=== PATIENT | female | born 1980 | race Caucasian/White ===

== ENCOUNTER → 2020-10-04 08:08 | Outpatient (BNVA) | payer MEDICAID, SELFPAY | PROVIDERS: Visit Provider Advanced Practice Midwife | DX: O09.521 Supervision of elderly multigravida, first trimester (principal); O16.1 Unspecified maternal hypertension, first trimester; Z79.899 Other long term (current) drug therapy; Z91.89 Other specified personal risk factors, not elsewhere classified | CPT/HCPCS: 81025; 99212 ==

== ENCOUNTER 2020-11-03 09:54 | Outpatient (REF) | payer MEDICAID, SELFPAY | END 2020-11-03 09:55 | disposition home or self-care (01) | LOC: HO.LAB 09:54 | PROVIDERS: PCP Student in an Organized Health Care Education/Training Program; Visit Provider Internal Medicine | DX: Z20.828 Contact with and (suspected) exposure to other viral communicable diseases (principal) | CPT/HCPCS: 36415; C9803; U0003 ==

== ENCOUNTER → 2021-10-31 09:47 | Outpatient (BNVA) | payer MEDICAID, SELFPAY | PROVIDERS: Visit Provider Physician Assistant | DX: S50.02XA Contusion of left elbow, initial encounter (principal) | CPT/HCPCS: 99202 ==

== ENCOUNTER 2022-08-13 10:34 | Outpatient (REF) | payer MEDICAID, SELFPAY ==
[2022-08-13 12:09] LABS: Alanine Aminotransferase 8 U/L (0-31); Albumin Level 3.7 g/dL (3.5-5.0); Alkaline Phosphatase 108 U/L (39-117); Anion Gap 20 (12-20); Aspartate Amino Transferase 11 U/L (5-31); Bilirubin Total 0.2 mg/dL (0.0-1.0); Blood Urea Nitrogen 16 mg/dL (9-16); Calcium 9.1 mg/dL (8.4-10.2); Carbon Dioxide 19 mmol/L (22-29); Chloride 103 mmol/L (96-108); Estimated Glomerular Filt Rate > 60; Glucose Random 218 mg/dL (60-115); Iron 96 mcg/dL (30-160); Percent Iron Saturation 19 % (15-50); Potassium 4.2 mmol/L (3.3-5.1); Sodium 138 mmol/L (135-145); Total Iron Binding Capacity 500 mcg/dL (228-428); Total Protein 6.9 g/dL (6.5-8.0); Unsaturated Iron Binding 404 ug/dL
[2022-08-13 12:28] LABS: Ferritin 20 ng/mL (10-250); TSH reflex Free T4 1.83 uIU/mL (0.32-4.0); Vitamin D 25-OH Total 10.2 ng/mL (>30)
[2022-08-13 12:49] LABS: Vitamin B12 176 pg/mL (200-900)
[2022-08-15 11:47] LABS: Transglutaminase IgA <1.0 U/mL
[2022-08-15 12:36] LABS: Immunoglobulin A 170 mg/dL (47-310)
[2022-08-17 13:01] LABS: Vitamin A 91 mcg/dL (38-98)
== END 2022-08-13 10:35 | disposition home or self-care (01) ==
LOC: HO.LAB 10:34
PROVIDERS: PCP Student in an Organized Health Care Education/Training Program; Visit Provider Internal Medicine
DX: R10.30 Lower abdominal pain, unspecified (principal); K52.9 Noninfective gastroenteritis and colitis, unspecified; K62.5 Hemorrhage of anus and rectum
CPT/HCPCS: 36415; 80053; 82306; 82607; 82728; 82746; 82784; 83540; 84443; 84590; 86364; 99202

== ENCOUNTER 2022-09-03 13:14 | Outpatient (REF) | payer MEDICAID, SELFPAY ==
[2022-09-03 15:02] LABS: Adenovirus F 40/41 Not Detected (Not Detect.); Astrovirus Not Detected (Not Detect.); Campylobacter Not Detected (Not Detect.); Cryptosporidium Not Detected (Not Detect.); Cyclospora cayetanensis Not Detected (Not Detect.); E. coli EAEC Not Detected (Not Detect.); E. coli EPEC Not Detected (Not Detect.); E. coli ETEC Not Detected (Not Detect.); E. coli STEC Not Detected (Not Detect.); Entamoeba histolytica Not Detected (Not Detect.); Giardia lamblia Not Detected (Not Detect.); Norovirus GI/GII Not Detected (Not Detect.); Plesiomonas shigelloides Not Detected (Not Detect.); Rotavirus A Not Detected (Not Detect.); Salmonella Not Detected (Not Detect.); Sapovirus Not Detected (Not Detect.); Shigella sp./EIEC Not Detected (Not Detect.); Vibrio Not Detected (Not Detect.); Vibrio Cholerae Not Detected (Not Detect.); Yersinia enterocolitica Not Detected (Not Detect.)
[2022-09-10 18:11] LABS: Calprotectin, Fecal 19 mcg/g
== END 2022-09-03 13:15 | disposition home or self-care (01) ==
LOC: HO.LNP 13:14
PROVIDERS: Visit Provider Internal Medicine
DX: K52.9 Noninfective gastroenteritis and colitis, unspecified (principal)
CPT/HCPCS: 83993; 87507

== ENCOUNTER → 2022-09-10 09:57 | Outpatient (BNVA) | payer MEDICAID, SELFPAY | PROVIDERS: PCP Student in an Organized Health Care Education/Training Program; Visit Provider Internal Medicine | DX: K62.5 Hemorrhage of anus and rectum (principal); K52.9 Noninfective gastroenteritis and colitis, unspecified; M62.89 Other specified disorders of muscle; E66.01 Morbid (severe) obesity due to excess calories; Z91.89 Other specified personal risk factors, not elsewhere classified; Z68.41 Body mass index [BMI] 40.0-44.9, adult | CPT/HCPCS: 99212 ==

== ENCOUNTER 2022-10-15 09:15 | Outpatient (REF) | payer MEDICAID, SELFPAY ==
--- NOTE | ~2022-10-15 | US_ITS ---
EXAMINATION: US ABDOMEN COMPLETE CLINICAL INFORMATION: Check for fatty liver. COMPARISON: Renal ultrasound 02/22/2012. TECHNIQUE: Real-time imaging of the abdominal viscera. FINDINGS: PANCREAS: Normal. ABDOMINAL AORTA: The proximal, mid, and distal segments are normal in caliber. INFERIOR VENA CAVA: Visualized portions are normal. LIVER: The liver is enlarged measuring 22.7 cm. There is diffuse increased liver echogenicity. There is a focal isoechoic lesion with hyperechoic capsule in left hepatic lobe measuring 1.9 x 1.8 x 2.4 cm. A similar appearing lesion is seen in the right hepatic lobe measuring 1.7 x 1.8 x 1.3 cm. These are suspicious for hemangiomas. There is no intrahepatic biliary duct dilatation seen. GALLBLADDER: There is a non mobile echogenic lesion along the inner gallbladder wall measuring 0.6 x 0.70 x 0.55 cm likely a small polyp. No echogenic stones or wall thickening seen. However, there is echogenic sludge noted. There is no tenderness in right upper quadrant. COMMON BILE DUCT: Normal in caliber measuring 0.5 cm in diameter. RIGHT KIDNEY: There is an anechoic cyst in the upper pole with septation measuring 2.1 x 1.5 x 2.1 cm. No additional lesions seen. No hydronephrosis or renal calculi. The kidney measures 12.2 cm in maximum dimension. LEFT KIDNEY: Normal. No hydronephrosis. No renal calculi or focal parenchymal lesions. The kidney measures 12.3 cm in maximum dimension. SPLEEN: Normal. The spleen measures 12.2 cm in maximum dimension. FREE FLUID: None. US/US abdomen complete IMPRESSION: Enlarged liver with diffuse hepatic steatosis. Two isoechoic lesions with a hypoechoic capsules in right and left hepatic lobe likely hemangiomas. Complex cyst upper pole right kidney. Echogenic sludge and a solitary polyp in the gallbladder.
== END 2022-10-15 09:16 | disposition home or self-care (01) ==
LOC: HO.HMGCX 09:15
PROVIDERS: PCP Student in an Organized Health Care Education/Training Program; Visit Provider Internal Medicine
DX: K76.0 Fatty (change of) liver, not elsewhere classified (principal)
CPT/HCPCS: 76700

== ENCOUNTER 2022-11-01 09:05 | Day surgery (SDC) | payer MEDICAID, SELFPAY ==
[2022-10-26 13:59] VITALS: BMI 43.9
--- NOTE | 2022-10-31 13:26 | P.CONAN_ITS ---
Documented by User: Dedra Galicia NP 10/31/22 13:31 HPI - Anesthesia Eval Consult details Narrative: 42yo F for Colonoscopy PMFSH Active Problems Active Problems: All Active Problems (Updated 10/26/22 @ 13:17 by Klaudia Zazueta MD) High risk for diabetes mellitus (Acute) Irregular menses (Acute) Early stage of (Acute) Advanced maternal age, antepartum (Acute) Contusion of elbow, left (Acute) Lower abdominal pain (Acute) Chronic diarrhea (Acute) Rectal bleeding (Acute) Pelvic floor dysfunction in female (Acute) Obesity, Class III, BMI 40-49.9 (morbid obesity) (Acute) Fatty liver (Acute) Abnormal finding on imaging (Acute) Abnormal glucose complicating (Acute) Past Medical History Medical History (Updated 10/26/22 @ 13:17 by Klaudia Zazueta MD) Abnormal glucose complicating Asthma Bipolar depression GERD (gastroesophageal reflux disease) History of anxiety History of depression Hypertension Family History Family History Father Diabetes mellitus Asthma Mother Hypertension Asthma History of depression Surgical History Surgical History (Updated 10/26/22 @ 13:55 by Josy New RN) Hx of tonsillectomy Hx of tooth extraction Social History Social History 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 primary home 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 care social worker to a 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 other at home: Yes (children, will be there also for childcare) Do you presently have visiting nurse or other home services: No Alcohol intake: current Alcohol intake frequency: holidays/special occasions only Patient Tobacco Use Status: Former Tobacco user Quit Date: 2017 Tobacco use type: Cigarette Sexual orientation: Straight/Heterosexual Meds Allergies Allergy/AdvReac Type Severity Reaction Status Date / Time No Known Allergies Allergy Verified 10/26/22 13:56 [No Known Allergies*] Home Medications Medication Instructions Recorded Confirmed Last Taken Type albuterol sulfate 90 mcg/actuation 1 inh inhalation QID PRN Shortness 10/04/20 10/26/22 Unknown History aerosol inhaler Of Breath Or Wheezing omeprazole 40 mg capsule,delayed 40 mg PO DAILY 10/04/20 10/26/22 Unknown History release amlodipine 10 mg tablet 10 mg PO DAILY 08/13/22 10/26/22 Unknown History blood sugar diagnostic (FreeStyle #10 ea 08/13/22 Unknown History Lite Strips) dicyclomine 10 mg capsule 10 mg PO DAILY 08/13/22 10/26/22 10/12/22 History fluticasone propionate 50 2 spray intranasal DAILY PRN 08/13/22 10/26/22 Unknown History mcg/actuation nasal Allergy Symptoms spray,suspension hydrochlorothiazide 25 mg tablet 25 mg PO QAM 08/13/22 10/26/22 Unknown History hydroxyzine HCl 10 mg tablet 15 mg PO DAILY 08/13/22 10/26/22 Unknown History lancets 33 gauge (TRUEplus Lancets) #100 ea 08/13/22 Unknown History loratadine 10 mg tablet 10 mg PO DAILY PRN Allergic 08/13/22 10/26/22 Unknown History Symptoms metformin 500 mg tablet 500 mg PO QAM 08/13/22 10/26/22 Unknown History hydrocortisone 2.5 % topical cream topical TID-QID 09/10/22 09/10/22 Unknown History with perineal applicator (Proctosol HC) norgestimate-ethinyl estradiol 1 tab PO DAILY 10/26/22 10/26/22 Unknown History 0.18 mg/0.215mg/0.25mg-35 mcg(28)tablet (Tri-Sprintec (28)) Exam Exam Date and Time: October 31, 2022 1326 Height,Weight and Vital Signs: Height 5 ft 2 in Weight 108.862 kg Pertinent Lab Results Pertinent Lab Results: Laboratory Tests 08/13/22 10:59 Sodium 138 Potassium 4.2 Chloride 103 Carbon Dioxide 19 L BUN 16 Creatinine 0.77 Assessment and Plan Assessment Anesthesia Assessment: Chart Reviewed Documented by User: Molly Suazo MD 11/01/22 11:47 [facility] Past Medical History Medical History (Updated 10/26/22 @ 13:17 by Klaudia Zazueta MD) Abnormal glucose complicating Asthma Bipolar depression GERD (gastroesophageal reflux disease) History of anxiety History of depression Hypertension Family History Family History Father Diabetes mellitus Asthma Mother Hypertension Asthma History of depression Family history of problems with anesthesia: No Surgical History Surgical History (Updated 10/26/22 @ 13:55 by Josy New RN) Hx of tonsillectomy Hx of tooth extraction History of Problems with Anesthesia: No Social History Social History Are you a primary home health care social worker to a significant other at home: Yes (children, will be there also for childcare) Do you presently have visiting nurse or other home services: No Alcohol intake: current Alcohol intake frequency: holidays/special occasions only Patient Tobacco Use Status: Former Tobacco user Quit Date: 2017 Tobacco use type: Cigarette Sexual orientation: Straight/Heterosexual Meds Allergies Allergy/AdvReac Type Severity Reaction Status Date / Time No Known Allergies Allergy Verified 10/26/22 13:56 [No Known Allergies*] Home Medications Medication Instructions Recorded Confirmed Last Taken Type albuterol sulfate 90 mcg/actuation 1 inh inhalation QID PRN Shortness 10/04/20 10/26/22 Unknown History aerosol inhaler Of Breath Or Wheezing omeprazole 40 mg capsule,delayed 40 mg PO DAILY 10/04/20 10/26/22 Unknown History release amlodipine 10 mg tablet 10 mg PO DAILY 08/13/22 10/26/22 Unknown History blood sugar diagnostic (FreeStyle #10 ea 08/13/22 Unknown History Lite Strips) dicyclomine 10 mg capsule 10 mg PO DAILY 08/13/22 10/26/22 10/12/22 History fluticasone propionate 50 2 spray intranasal DAILY PRN 08/13/22 10/26/22 Unknown History mcg/actuation nasal Allergy Symptoms spray,suspension hydrochlorothiazide 25 mg tablet 25 mg PO QAM 08/13/22 10/26/22 Unknown History hydroxyzine HCl 10 mg tablet 15 mg PO DAILY 08/13/22 10/26/22 Unknown History lancets 33 gauge (TRUEplus Lancets) #100 ea 08/13/22 Unknown History loratadine 10 mg tablet 10 mg PO DAILY PRN Allergic 08/13/22 10/26/22 Unknown History Symptoms metformin 500 mg tablet 500 mg PO QAM 08/13/22 10/26/22 Unknown History hydrocortisone 2.5 % topical cream topical TID-QID 09/10/22 09/10/22 Unknown History with perineal applicator (Proctosol HC) norgestimate-ethinyl estradiol 1 tab PO DAILY 10/26/22 10/26/22 Unknown History 0.18 mg/0.215mg/0.25mg-35 mcg(28)tablet (Tri-Sprintec (28)) Exam Airway Mallampati Class: II TM Dist: >3cm Neck ROM: Full Denture: Upper Loose/Missing/Broken Teeth: Yes Heart: rr Lungs: cta Assessment and Plan Final Anesthetic Review Family History of Problems with Anesthesia: No History of Problems with Anesthesia: No NPO: Yes ASA Class: III Final Preanesthetic Review: No Changes in Pt Med Stat, Meds/Allgs Chart Reviewed, Consent Obtained/Reviewed and Anes Risks/Benef Reviewed Patient Risk: Low Procedure Risk: Low Anesthetic Plan Anesthetic Plan: MAC: Disposition: Standard PACU
[2022-11-01 09:26] VITALS: BMI 43.9
[2022-11-01 09:27] LABS: UPreg QC Valid YES; Urine Pregnancy NEGATIVE (NEGATIVE)
[2022-11-01 09:29] VITALS: BP 133/56; PULSE 76; RESP 18; TEMP 36.3; O2SAT 96
--- NOTE | 2022-11-01 09:33 | MHC.SHP ---
Pre-Procedural Eval Section A Date of Service: 11/01/22 Section B Chief Complaint: rectal bleeding,lower abdminal pain,diarrhea Relevant Family History (Specify if Yes): No Present Medications: see Short Stay Collaborative assessment Medical History: Significant History (Obesity, pelvic floor dysfunction, prediabetes ) Allergies: Allergies Allergy/AdvReac Type Severity Reaction Status Date / Time No Known Allergies Allergy Verified 10/26/22 13:56 [No Known Allergies*] Review of Systems Review of Systems Comment: Ten point ROS negative except as above Exam Exam Comment: Gen appear: No acute distress, well nourished HEENT: no icterus Chest: No overt resp distress Abd: soft, nontender, nondistended Psych: Stable affect, answering questions appropriately Neuro: A/Ox3 noted to move all extremities spontaneously Ext: no peripheral edema Plan Diagnosis/Plan: Unchanged I have reviewed the history and physical and performed a pertinent physical examination on my patient. No changes have occurred unless specified. Time Spent With Patient Time: Total time managing care of this patient today ____ minutes.
[2022-11-01] MEDS: Lactated Ringers 1,000 ML 100 ML IVCONT (09:49)
[2022-11-01 10:02] LABS: Glucose, Whole Blood 146 mg/dL (60-115)
--- NOTE | 2022-11-01 10:18 | P.CONAN_ITS ---
[facility] Active Problems Active Problems: All Active Problems (Updated 10/26/22 @ 13:17 by Klaudia Zazueta MD) High risk for diabetes mellitus (Acute) Irregular menses (Acute) Early stage of (Acute) Advanced maternal age, antepartum (Acute) Contusion of elbow, left (Acute) Lower abdominal pain (Acute) Chronic diarrhea (Acute) Rectal bleeding (Acute) Pelvic floor dysfunction in female (Acute) Obesity, Class III, BMI 40-49.9 (morbid obesity) (Acute) Fatty liver (Acute) Abnormal finding on imaging (Acute) Abnormal glucose complicating (Acute) Past Medical History Medical History (Updated 10/26/22 @ 13:17 by Klaudia Zazueta MD) Abnormal glucose complicating Asthma Bipolar depression GERD (gastroesophageal reflux disease) History of anxiety History of depression Hypertension Family History Family History Father Diabetes mellitus Asthma Mother Hypertension Asthma History of depression Family history of problems with anesthesia: No Surgical History Surgical History (Updated 10/26/22 @ 13:55 by Josy New RN) Hx of tonsillectomy Hx of tooth extraction History of Problems with Anesthesia: No Social History Social History 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 If so, by whom?: No Are you DNR?: No Advance Directives: No Advance Directives Information Provided: Yes Advance Directives on File: No Recently lost weight without trying: No Patient : No FDLMP: 10/17/2022 : No Poor oral hygiene: No Sexual orientation: Straight/Heterosexual Meds Allergies Allergy/AdvReac Type Severity Reaction Status Date / Time No Known Allergies Allergy Verified 10/26/22 13:56 [No Known Allergies*] Active Medications: Current Medications Albuterol Sulfate (Albuterol Sulfate (0.083%) 2.5 Mg/3 Ml Vial.Neb) 2.5 mg INHALE ONCE PRN PRN Reason: Shortness of Breath/Wheezing Lactated Ringer's (Lr) 1,000 mls @ 100 mls/hr IVCONT .Q10H JANUSZ Last Admin: 11/01/22 09:49 Dose: 100 mls/hr Home Medications Medication Instructions Recorded Confirmed Last Taken Type albuterol sulfate 90 mcg/actuation 1 inh inhalation QID PRN Shortness 10/04/20 10/26/22 Unknown History aerosol inhaler Of Breath Or Wheezing omeprazole 40 mg capsule,delayed 40 mg PO DAILY 10/04/20 10/26/22 Unknown History release amlodipine 10 mg tablet 10 mg PO DAILY 08/13/22 10/26/22 Unknown History blood sugar diagnostic (FreeStyle #10 ea 08/13/22 Unknown History Lite Strips) dicyclomine 10 mg capsule 10 mg PO DAILY 08/13/22 10/26/22 10/12/22 History fluticasone propionate 50 2 spray intranasal DAILY PRN 08/13/22 10/26/22 Unknown History mcg/actuation nasal Allergy Symptoms spray,suspension hydrochlorothiazide 25 mg tablet 25 mg PO QAM 08/13/22 10/26/22 Unknown History hydroxyzine HCl 10 mg tablet 15 mg PO DAILY 08/13/22 10/26/22 Unknown History lancets 33 gauge (TRUEplus Lancets) #100 ea 08/13/22 Unknown History loratadine 10 mg tablet 10 mg PO DAILY PRN Allergic 08/13/22 10/26/22 Unknown History Symptoms metformin 500 mg tablet 500 mg PO QAM 08/13/22 10/26/22 Unknown History hydrocortisone 2.5 % topical cream topical TID-QID 09/10/22 09/10/22 Unknown History with perineal applicator (Proctosol HC) norgestimate-ethinyl estradiol 1 tab PO DAILY 10/26/22 10/26/22 Unknown History 0.18 mg/0.215mg/0.25mg-35 mcg(28)tablet (Tri-Sprintec (28)) Exam Exam Date and Time: November 01, 2022 1018 Height,Weight and Vital Signs: Height 5 ft 2 in Weight 108.862 kg Last Vital Signs Temp 97.4 F 11/01/22 09:29 Pulse 76 11/01/22 09:29 Resp 18 11/01/22 09:29 BP 133/56 L 11/01/22 09:29 Pulse Ox 96 11/01/22 09:29 O2 Del Method 11/01/22 09:29 Pertinent Lab Results Pertinent Lab Results: Laboratory Tests 11/01/22 11/01/22 09:15 09:32 POC Glucose 146 H Urine Test NEGATIVE Airway Mallampati Class: II TM Dist: >3cm Loose/Missing/Broken Teeth: Yes (4) Heart: rr Lungs: cta Assessment and Plan Assessment Anesthesia Assessment: Anesthesia Plan Discussed and Chart Reviewed Final Anesthetic Review Family History of Problems with Anesthesia: No History of Problems with Anesthesia: No NPO: No ASA Class: I and III Final Preanesthetic Review: No Changes in Pt Med Stat, Meds/Allgs Chart Reviewed, Consent Obtained/Reviewed and Anes Risks/Benef Reviewed Patient Risk: Intermediate Procedure Risk: Low Anesthetic Plan Anesthetic Plan: MAC: Disposition: Standard PACU
--- NOTE | 2022-11-01 10:35 | P.OP_ITS ---
Operative Note Operative Note Date of Service: 11/01/22 Narrative: Procedure: Colonoscopy Indication: Lower GI bleeding, diarrhea Endoscopist: Klaudia Zazueta MD Anesthesia Provider: Dr Molly Suazo Anesthesia type: MAC Instrument: Olympus [id number]-H190L Consent: Indication, risks vs benefits, and alternatives were discussed with the patient who gave written informed consent to proceed. EKG, pulse, pulse oximetry and blood pressure were monitored throughout the procedure. Please see anesthesia flowsheet. Procedure: The patient was brought to the procedure room and placed in the left lateral decubitus position. IV medications were administered by the anesthesia provider in attendance. A digital rectal exam was performed which was abnormal due to finding of hemorrhoids. The colonoscope was then inserted through the anus and advanced through the colon to the cecum at 75 cm,and terminal ileum. Mucosa was carefully examined under high definition white light as the instrument was slowly withdrawn in a retrograde panoramic fashion. Retroflexion was performed in rectum. The procedure was not difficult. There were no immediate obvious complications. The quality of the prep was BBPS: 2+2+2 = adequate Withdrawal time 10 minutes. Limitations: No limitations. Findings: Mucosa: Normal to cecum and terminal ileum. Random cold forceps biopsies were taken from right and left side of the colon to r/o microscopic colitis. Protruding lesions: * 1 sessile polyp of size 2 mm in cecum. Cold forceps polypectomy was performed. The polyp was completely removed and retrieved. * Medium external and internal hemorrhoids without stigmata of recent bleeding. Excavated lesions: * Small and medium diverticulosis of left sided colon. Impression: 1. Normal colon and terminal ileum mucosa 2. Total of 1 polyp removed from cecum. 3. External and internal hemorrhoids 4. Left sided diverticulitis Recommendations: - Follow path results. - Repeat colonoscopy in 7-10 years if polyp is adenoma - Rectal bleeding likely from hemorrhoids.
[2022-11-01 10:37] VITALS: BP 122/66; PULSE 76; RESP 16; TEMP 36.1; O2SAT 98
[2022-11-01 10:51] VITALS: BP 132/88; PULSE 72; RESP 16; TEMP 36.2; O2SAT 100
== END 2022-11-01 11:40 | disposition home or self-care (01) ==
PROVIDERS: Nurse Practitioner; PCP Student in an Organized Health Care Education/Training Program; Visit Provider Internal Medicine
PROC: 0DJD8ZZ Inspection of Lower Intestinal Tract, Via Natural or Artificial Opening Endoscopic (ICD-10-PCS; CPT 45378; principal; 2022-11-01 10:20)
DX: K62.5 Hemorrhage of anus and rectum (principal); K51.40 Inflammatory polyps of colon without complications; K57.30 Diverticulosis of large intestine without perforation or abscess without bleeding; K64.8 Other hemorrhoids; K64.4 Residual hemorrhoidal skin tags; K52.9 Noninfective gastroenteritis and colitis, unspecified; R10.30 Lower abdominal pain, unspecified; I10 Essential (primary) hypertension; K21.9 Gastro-esophageal reflux disease without esophagitis; M62.89 Other specified disorders of muscle; E66.01 Morbid (severe) obesity due to excess calories; Z68.41 Body mass index [BMI] 40.0-44.9, adult; J45.909 Unspecified asthma, uncomplicated; E11.9 Type 2 diabetes mellitus without complications; Z79.84 Long term (current) use of oral hypoglycemic drugs; Z79.51 Long term (current) use of inhaled steroids; Z79.899 Other long term (current) drug therapy; Z87.891 Personal history of nicotine dependence
CPT/HCPCS: 45380; 81025; 82947; 88305

== ENCOUNTER 2022-11-08 13:32 | Outpatient (REF) | payer MEDICAID, SELFPAY ==
--- NOTE | ~2022-11-08 | MR_ITS ---
EXAMINATION: MRI ABDOMEN WITH AND WITHOUT CONTRAST CLINICAL INFORMATION: ENLARGED LIVER W/DIFFUSE HEPATIC STEATOSIS COMPARISON: 10/15/2022 ultrasound TECHNIQUE: Multiple routine MRI sequences through the abdomen were obtained on a high-field 1.5Tesla MRI. Pre-and postcontrast images with 10 mL of Gadavist intravenous contrast were obtained. This included a dynamic contrast-enhanced technique. FINDINGS: Lung bases: The visualized lung bases are unremarkable. Liver: There is diffuse signal loss and out of phase imaging consistent with diffuse infiltration of the liver. Mild regions of focal fatty sparing are seen.. In the anterior aspect of segment 4 the liver there is a very subtle 1.5 cm arterial phase enhancing lesion with a T2 bright central scar. This is not well seen on the precontrast images. Statistically a small region of focal nodular hyperplasia would be favored. In the lateral right lobe the liver in segment 7 there is an additional subtle area of enhancement is very slightly T2 bright and again has a area of likely central enhancing scar. An additional subtle region of focal nodular hyperplasia would be suspected. Gallbladder: Gallbladder is unremarkable. No suspicious gallstones or filling defects. No gallbladder wall thickening or pericholecystic inflammatory changes. Pancreas: Pancreas is homogeneous in signal. No pancreatic ductal dilatation or obstruction. No peripancreatic inflammatory changes or fluid. Spleen: Unremarkable Adrenals: Unremarkable Kidneys: Kidneys are normal in size, shape, and signal. Right sided small parapelvic cysts incidentally noted No suspicious renal mass lesion seen. No hydronephrosis or perinephric edema. Other: No bulky adenopathy MR/MR abdomen wo/w con IMPRESSION: Diffuse fatty infiltration of the liver with mild regions of focal fatty sparing. There are 2 very subtle arterial phase enhancing lesions in the liver as described above. Statistically these likely represent small regions of focal nodular hyperplasia. In a patient of this age, follow-up MRI in one year would be recommended to assure stability of these findings. Ideally a follow-up study could be performed utilizing Eovist hepatocyte phase specific MR contrast to further define etiology of the probable focal nodular hyperplasia
== END 2022-11-08 13:33 | disposition home or self-care (01) ==
LOC: HO.MRI 13:32
PROVIDERS: PCP Student in an Organized Health Care Education/Training Program; Visit Provider Internal Medicine
DX: R93.89 Abnormal findings on diagnostic imaging of other specified body structures (principal)
CPT/HCPCS: 74183; A9585

== ENCOUNTER → 2022-12-12 12:43 | Outpatient (BNVA) | payer MEDICAID, SELFPAY | PROVIDERS: PCP Student in an Organized Health Care Education/Training Program; Visit Provider Internal Medicine | DX: K52.9 Noninfective gastroenteritis and colitis, unspecified (principal); R93.89 Abnormal findings on diagnostic imaging of other specified body structures | CPT/HCPCS: 99212 ==

== ENCOUNTER 2023-05-21 08:51 | Outpatient (REF) | payer MEDICAID, SELFPAY ==
[2023-05-28 18:03] LABS: Chenodeoxycholic Acid 0.8 umol/L (< OR = 3.1); Cholic Acid <0.5 umol/L (< OR = 1.8); Deoxycholic Acid 0.8 umol/L (< OR = 2.4); Total Bile Acids 1.5 umol/L (< OR = 6.8)
== END 2023-05-21 08:52 | disposition home or self-care (01) ==
LOC: HO.LAB 08:51
PROVIDERS: PCP Student in an Organized Health Care Education/Training Program; Visit Provider Internal Medicine
DX: K52.9 Noninfective gastroenteritis and colitis, unspecified (principal)
CPT/HCPCS: 36415; 82542

== ENCOUNTER 2023-05-30 13:56 | Outpatient (REF) | payer OTHER, SELFPAY ==
[2023-05-30 18:23] LABS: Estimated Average Glucose 137 mg/dL; Hemoglobin A1c % 6.4 %
[2023-05-30 18:27] LABS: Alanine Aminotransferase 16 U/L (0-31); Albumin Level 3.7 g/dL (3.5-5.0); Alkaline Phosphatase 135 U/L (39-117); Anion Gap 18 (12-20); Aspartate Amino Transferase 15 U/L (5-31); Bilirubin Direct 0.1 mg/dL (0.0-0.5); Bilirubin Total 0.3 mg/dL (0.0-1.0); Blood Urea Nitrogen 12 mg/dL (9-16); Calcium 9.4 mg/dL (8.4-10.2); Carbon Dioxide 18 mmol/L (22-29); Chloride 107 mmol/L (96-108); Cholesterol 203 mg/dL; Estimated Glomerular Filt Rate > 60; Glucose Random 140 mg/dL (60-115); HDL Cholesterol 58 mg/dL; LDL Cholesterol Calculated 98 mg/dl; Potassium 3.7 mmol/L (3.3-5.1); Sodium 139 mmol/L (135-145); Total Protein 7.2 g/dL (6.5-8.0); Triglycerides 239 mg/dL
[2023-05-30 20:55] LABS: Creatinine Urine 186.86 mg/dL; Microalbum/Creatinine Ratio Ur 162.6 ug/mg cr
== END 2023-05-30 13:57 | disposition home or self-care (01) ==
LOC: HO.CHCLDS 13:56
PROVIDERS: Visit Provider Student in an Organized Health Care Education/Training Program
DX: E11.9 Type 2 diabetes mellitus without complications (principal)
CPT/HCPCS: 36415; 80048; 80061; 80076; 82043; 83036

== ENCOUNTER 2023-09-06 16:00 | Outpatient (REF) | payer MEDICAID, SELFPAY | END 2023-09-06 16:01 | disposition home or self-care (01) | LOC: HO.MAMMO 16:00 | PROVIDERS: PCP Student in an Organized Health Care Education/Training Program; Visit Provider Obstetrics & Gynecology | DX: Z12.31 Encounter for screening mammogram for malignant neoplasm of breast (principal) | CPT/HCPCS: 77063; 77067 ==

== ENCOUNTER → 2023-09-06 16:15 | Outpatient (BNV) | payer MEDICAID, SELFPAY | PROVIDERS: PCP Student in an Organized Health Care Education/Training Program; Visit Provider Radiology Diagnostic Radiology | DX: Z12.31 Encounter for screening mammogram for malignant neoplasm of breast (principal) | CPT/HCPCS: 77063; 77067 ==

== ENCOUNTER 2023-12-24 13:45 | Outpatient (REF) | payer MEDICAID, SELFPAY ==
--- NOTE | ~2023-12-24 | MR_ITS ---
EXAMINATION: MR ABDOMEN WITHOUT AND WITH CONTRAST CLINICAL INFORMATION: Follow-up imaging of hepatic lesions. COMPARISON: 11/08/2022 TECHNIQUE: MR abdomen was performed without and with use of 10 mL intravenous Eovist gadolinium contrast. Postcontrast images are performed in multiphase dynamic sequences. Imaging was performed in 3 planes. FINDINGS: LUNG BASES: No pleural or pericardial effusion. LIVER, GALLBLADDER, AND BILIARY TREE: Liver: There is diffuse signal loss on out of phase imaging consistent with hepatic steatosis. Mild regions of focal fatty sparing are seen. In the anterior aspect of segment 4 the liver there is a subtle 1.8 x 1.8 cm arterial phase enhancing lesion with a possible T2 hyperintense central scar. The lesion is T2 hyperintense and T1 hyperintense on precontrast imaging. There are additional lesions in hepatic segment 7 measuring 1.7 x 1.3 cm and hepatic segment 4 measuring 2.4 x 1.2 cm with similar enhancement characteristics. The gallbladder is unremarkable. No biliary ductal dilatation. PANCREAS: No ductal dilatation. SPLEEN: Not enlarged. ADRENAL GLANDS: No adrenal mass. KIDNEYS AND URETERS: The kidneys are normal in size, shape, and enhance symmetrically. Right renal cysts. No imaging follow-up is needed. No hydronephrosis. No perinephric stranding. GASTROINTESTINAL TRACT: No bowel obstruction. No ascites or fluid collection. LYMPH NODES: No bulky lymphadenopathy. VASCULAR: Normal caliber abdominal aorta. MR/MR abdomen wo/w con IMPRESSION: No significant interval change in 3 hepatic lesions demonstrating imaging characteristics and enhancement characteristics 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 Follow-up imaging as clinically indicated. Hepatic steatosis.
[2023-12-24] MEDS: Gadoxetate Disodium 10 ML VIAL IVPUSH (14:50)
== END 2023-12-24 13:46 | disposition home or self-care (01) ==
LOC: HO.MRI 13:45
PROVIDERS: PCP Student in an Organized Health Care Education/Training Program; Visit Provider Internal Medicine
DX: R93.89 Abnormal findings on diagnostic imaging of other specified body structures (principal)
CPT/HCPCS: 74183; A9581

== ENCOUNTER 2024-01-01 14:51 | Outpatient (AMB) | payer MEDICAID, SELFPAY ==
--- NOTE | 2024-01-01 14:56 | MHC.OFFVIS ---
Intake Intake Visit Reasons: MRI follow up Intake Note: Patient follow up for MRI results. Patient medication is helping with acid reflex. Denies any other issues. 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 Initial visit 07/2022: History was obtained from the patient, who states that for the past 6 months she has been having loose watery diarrhea which is associated with severe abdominal pain and nausea. She states that she is going up to 8-10 times a day to the bathroom to pass nonbloody watery bowel movements. There urge to defecate triggers severe lower abdominal pain that progressively gets worse as she is passing the bowel movement and goes away within an hour of having a BM. While she is on the toilet, she ends up spending upwards of 20-30 minutes due to the pain. The pain is so severe that it makes her nauseous sometimes. Denies any vomiting, changes in appetite, fevers. No unintentional weight loss. She does note occasional rectal bleeding on wiping. Had 1 episode 2 weeks ago, where she had persistent rectal bleeding with each bowel movement for 6 days. Therapy so far includes dicyclomine, which she does not think has helped. No family history of colon cancer in first-degree relative. Sister has history of Crohn's disease. Has gallbladder in Situ. Patient has never had a colonoscopy. 09/10/22: Reports another episode of worsening rectal pressure and pain 2 weeks ago. At that time also had bleeding with passage of stool. She was seen in the urgent care, and prescribed hydrocortisone for hemorrhoidal bleeding. Has not taken it yet. Reports no change in her frequency of bowel movements. However, the bowel movements are not as watery as before. Avoiding to spend time on the bathroom. No unintentional weight loss. Of note, continues to carry her baby who weighs 26 lb. She also reports other pelvic floor symptoms including urge and stress urinary incontinence. 12/12/22: Colonoscopy results reviewed patient was reassured evidence of infectious, or neoplastic process to explain diarrhea. Microscopic colitis ruled out as well on biopsy. MRI results were also reviewed, and patient is aware that she is due for another MRI next year with [facility]. In terms of her diarrhea, continues with soft stools 2 to 3 times a day. Main issue is urgency right after eating. Seeing a pelvic floor therapist next month. 01/01/24: Booked as a tele visit as per her preference. Reports no abdominal cramping, bowel movements are regular. Reports significant ongoing mental health issues, for which she is actively seeing a therapist as well as a psychiatrist these days. Aware of her fatty liver disease, but has not been able to work on risk factor modification just yet. MRI results reviewed with the patient, she was reassured that these are benign lesions that do not need follow-up. [facility] Medical History Abnormal glucose complicating Asthma Bipolar depression GERD (gastroesophageal reflux disease) History of anxiety History of depression Hypertension Surgical History Hx of colonoscopy Hx of tooth extraction Hx of tonsillectomy Family History Father Diabetes mellitus Asthma Mother Hypertension Asthma History of depression Social History Are you a primary home child care provider to a significant other at home: Yes (children, will be there also for childcare) Do you presently have visiting nurse or other home services: No Alcohol intake: current Alcohol intake frequency: holidays/special occasions only Patient Tobacco Use Status: Former Tobacco user Quit Date: 2017 Tobacco use type: Cigarette Sexual orientation: Straight/Heterosexual Review of Systems Const All systems reviewed & are unremarkable except as noted in HPI and below Physical Exam Vital Signs: Appears in no distress With the obesity Speaking in full sentences Results Reviewed Results Reviewed: MRI 12/24/23: No significant interval change in 3 hepatic lesions demonstrating imaging characteristics and enhancement characteristics 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 Follow-up imaging as clinically indicated. Hepatic steatosis. 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 Pt was reassured that this is a benign condition and does not need surveillance. # MAFLD/BOYD: Risk factors include obesity, type 2 diabetes, hypertension. Reminded to get blood work done before next visit to calculate Fib-4. Spleen not enlarged on MRI. # ? GERD: Has been on omeprazole 40 x decades for ? GERD. Appears started empirically does not remember having an EGD. No red flags. Advised to cut down to 20mg PO once daily for now and then eventually to 10mg in 3-6 months. Follow up 6 months Medications: New omeprazole 20 mg PO DAILY 90 caps 1RF Coding Level of Care Code Tele Est Pt Level 4 (46029) Diagnoses Abnormal finding on imaging R93.89 Fatty liver K76.0
== END 2024-01-01 16:01 | disposition home or self-care (01) ==
LOC: HO.HGI 14:52
PROVIDERS: PCP Student in an Organized Health Care Education/Training Program; Visit Provider Internal Medicine
DX: K76.0 Fatty (change of) liver, not elsewhere classified (principal); R93.89 Abnormal findings on diagnostic imaging of other specified body structures
CPT/HCPCS: 99213

== ENCOUNTER → 2024-01-01 14:51 | Outpatient (BNVA) | payer MEDICAID, SELFPAY | PROVIDERS: PCP Student in an Organized Health Care Education/Training Program; Visit Provider Internal Medicine ==

== ENCOUNTER 2024-08-04 10:41 | Outpatient (REF) | payer MEDICAID, SELFPAY ==
[2024-08-04 14:26] LABS: Estimated Average Glucose 131 mg/dL; Hemoglobin A1C 146.3292 umol/L; Hemoglobin A1c % 6.2 % (<6.0); Total Hemoglobin (HGBA1C) 3294.5272 umol/L
[2024-08-04 14:35] LABS: Alanine Aminotransferase 13 U/L (0-31); Albumin Level 3.9 g/dL (3.5-5.0); Alkaline Phosphatase 106 U/L (39-117); Anion Gap 14 (12-20); Aspartate Amino Transferase 13 U/L (5-31); Bilirubin Direct 0.1 mg/dL (0.0-0.5); Bilirubin Total 0.3 mg/dL (0.0-1.0); Blood Urea Nitrogen 15 mg/dL (9-16); Calcium 9.5 mg/dL (8.4-10.2); Carbon Dioxide 25 mmol/L (22-29); Chloride 108 mmol/L (96-108); Cholesterol 218 mg/dL (<200); Estimated Glomerular Filt Rate > 60; Glucose Random 118 mg/dL (60-115); HDL Cholesterol 44 mg/dL (>40); LDL Cholesterol Calculated 139 mg/dL (<100); Potassium 3.7 mmol/L (3.3-5.1); Sodium 143 mmol/L (135-145); Total Protein 7.3 g/dL (6.5-8.0); Triglycerides 179 mg/dL (<150)
== END 2024-08-04 10:42 | disposition home or self-care (01) ==
LOC: HO.CHCLDS 10:41
PROVIDERS: Visit Provider Student in an Organized Health Care Education/Training Program
DX: E11.9 Type 2 diabetes mellitus without complications (principal)
CPT/HCPCS: 36415; 80048; 80061; 80076; 83036

== ENCOUNTER 2024-09-07 15:43 | Outpatient (REF) | payer MEDICAID, SELFPAY ==
--- NOTE | ~2024-09-07 | MM_ITS ---
EXAMINATION: MM SCREENING DIGITAL BREAST TOMOSYNTHESIS, BILATERAL CLINICAL INFORMATION: Screening. Asymptomatic. COMPARISON: Mammography: Comparison is made with available priors TECHNIQUE: Digital breast mammography with tomosynthesis is performed in both the craniocaudal and mediolateral oblique views along with computer-aided detection (CAD). FINDINGS: There are scattered areas of fibroglandular density (ACR BI-RADS breast composition Category b). There are no significant masses, abnormal calcifications, or other abnormalities. MM/MM tomosynthesis screening BI IMPRESSION: No mammographic evidence of malignancy. ASSESSMENT: BI-RADS BI-RADS 1 - Negative RECOMMENDATION: Routine annual mammography screening. 1 year F/U This examination should not preclude the clinical evaluation of a suspicious palpable abnormality. This patient's information was entered into a reminder system with a target due date for their next mammogram. Electronically signed by: Elsi Fay DO 09/16/2024 12:07 PM [facility]
== END 2024-09-07 15:44 | disposition home or self-care (01) ==
LOC: HO.MAMMO 15:43
PROVIDERS: PCP Student in an Organized Health Care Education/Training Program; Visit Provider Student in an Organized Health Care Education/Training Program
DX: Z12.31 Encounter for screening mammogram for malignant neoplasm of breast (principal)
CPT/HCPCS: 77063; 77067

== ENCOUNTER → 2024-09-07 15:45 | Outpatient (BNV) | payer MEDICAID, SELFPAY | PROVIDERS: PCP Student in an Organized Health Care Education/Training Program; Visit Provider Internal Medicine | DX: Z12.31 Encounter for screening mammogram for malignant neoplasm of breast (principal) | CPT/HCPCS: 77063; 77067 ==

== ENCOUNTER 2024-10-04 18:23 | Emergency (ER) | payer MEDICAID, SELFPAY ==
--- NOTE | ~2024-10-04 | XR_ITS ---
EXAMINATION: XR ABDOMEN KUB CLINICAL INDICATION: eval stool burden COMPARISON: None available. TECHNIQUE: AP view of the abdomen. FINDINGS: The bowel gas pattern appears unremarkable. No significant stool burden identified. Evidence of ileus or obstruction. No unusual soft tissue calcifications are noted. The bones appear unremarkable. IUD. XR/XR KUB IMPRESSION: Unremarkable examination. Electronically signed by: Cameron Leon MD 10/04/2024 09:11 PM [facility]
--- NOTE | ~2024-10-04 | CT_ITS ---
EXAMINATION: CT ABDOMEN AND PELVIS WITH CONTRAST CLINICAL INFORMATION: Right lower quadrant abdominal pain and tenderness COMPARISON: KUB earlier today, MR abdomen 12/24/2023 TECHNIQUE: Multidetector volumetric imaging was performed from the superior aspect of the liver through the pubic symphysis with intravenous contrast. A total of 85 mL of Omnipaque 350 was utilized for the study. Sagittal and coronal reformatted images were obtained on the technologist's workstation. This CT examination was performed using dose optimization techniques as appropriate, variously including the following: *Automated exposure control *Adjustment of mA and/or kV according to patient size (this includes techniques or standardized protocols for targeted exams where dose is matched to indication/reason for exam; i.e. extremities or head) *Use of iterative reconstruction technique DLP: 764 mGy-cm FINDINGS: LUNG BASES: The visualized lung bases are unremarkable. LIVER, GALLBLADDER, AND BILIARY TREE: The liver is normal in size, shape, and attenuation. No focal hepatic lesion or biliary ductal dilatation is present. The gallbladder is unremarkable with no evidence of radiopaque gallstones, gallbladder wall thickening, or obvious pericholecystic inflammatory changes. PANCREAS: Unremarkable. SPLEEN: Unremarkable. ADRENAL GLANDS: Unremarkable. KIDNEYS AND URETERS: The kidneys are normal in size, shape, and attenuation. No hydronephrosis, hydroureter, or calculi seen. 2 parapelvic right-sided benign Bosniak class I renal cysts are noted which require no additional imaging or follow-up. No solid renal masses are seen. BLADDER: Unremarkable. GASTROINTESTINAL TRACT: The small and large bowel are unremarkable. The appendix is unremarkable. ABDOMINAL WALL: No significant hernia is appreciated. Is a small periumbilical hernia seen containing only fat. There is mild diastases of the rectus muscles. LYMPH NODES: Normal. VASCULAR: Unremarkable. PELVIC VISCERA: Abdomen IUD is present in good position within the endometrial canal. There is a small bulge on the inferior surface of the uterus likely related to a subserosal fibroid. Bilateral slightly complex, measuring more than water density, ovarian cysts are present measuring 4 cm on the right and 3 cm on the left. No free intraperitoneal fluid. OSSEOUS STRUCTURES: Unremarkable. CT/CT abdomen pelvis w IV con IMPRESSION: 1. A cause for the patient's right lower quadrant pain and tenderness has not been found. The appendix is normal. 2. Incidental note made of bilateral complex ovarian cysts, IUD in good position, probable small subserosal fibroid and other findings described above. Transabdominal and endovaginal ultrasound would be useful for further evaluation especially given history of right lower quadrant pain. Fleischner guidelines were followed. Electronically signed by: Fredrick Pat MD 10/05/2024 12:08 AM [facility]
--- NOTE | 2024-10-04 18:28 | ED.ABDPAIN ---
HPI - Abdominal Pain General Chief Complaint: Abdominal Pain Stated Complaint: Abd pain vomiting Time Seen by Provider: 10/04/24 21:02 History of Present Illness ED Provider: Chuck ESCOBAR narrative: The patient is a 43-year-old woman who has been having worsening abdominal pain over the last 5 or 6 days. Seems to be most prominent in her right lower quadrant. She thought that she was constipated in his taken a lot of laxatives but this is not seem to help. Today she also vomited after drinking a lot of fluids. She has not had much of an appetite over the last 2 days. No definite fever. The patient has been on Wegovy which predisposes people to constipation. That is why she thought she was probably constipated. Related Data Home Medications ?Medication ?Instructions ?Recorded ?Confirmed albuterol sulfate 90 mcg/actuation 1 inh inhalation QID PRN Shortness 10/04/20 10/26/22 aerosol inhaler Of Breath Or Wheezing amlodipine 10 mg tablet 10 mg PO DAILY 08/13/22 10/26/22 blood sugar diagnostic (FreeStyle #10 ea 08/13/22 Lite Strips) dicyclomine 10 mg capsule 10 mg PO DAILY 08/13/22 10/26/22 fluticasone propionate 50 2 spray intranasal DAILY PRN 08/13/22 10/26/22 mcg/actuation nasal Allergy Symptoms spray,suspension hydrochlorothiazide 25 mg tablet 25 mg PO QAM 08/13/22 10/26/22 hydroxyzine HCl 10 mg tablet 15 mg PO DAILY 08/13/22 10/26/22 lancets 33 gauge (TRUEplus Lancets) #100 ea 08/13/22 loratadine 10 mg tablet 10 mg PO DAILY PRN Allergic 08/13/22 10/26/22 Symptoms metformin 500 mg tablet 500 mg PO QAM 08/13/22 10/26/22 hydrocortisone 2.5 % topical cream topical TID-QID 09/10/22 09/10/22 with perineal applicator (Proctosol HC) norgestimate-ethinyl estradiol 1 tab PO DAILY 10/26/22 10/26/22 0.18 mg/0.215mg/0.25mg-35 mcg(28)tablet (Tri-Sprintec (28)) Previous Rx's ?Medication ?Instructions ?Recorded omeprazole 40 mg capsule,delayed 40 mg PO DAILY #90 caps 08/11/24 release Allergies Allergy/AdvReac Type Severity Reaction Status Date / Time No Known Allergies Allergy Verified 10/04/24 18:32 [No Known Allergies*] Review of Systems Review of Systems Yes all other systems are reviewed and are negative FOR[facility]LY [facility], [facility] Past Medical History Medical History (Updated 10/05/24 @ 00:27 by Wyatt Woods MD) Abnormal glucose complicating Bipolar depression History of depression History of anxiety Hypertension Asthma GERD (gastroesophageal reflux disease) Surgical History Hx of colonoscopy Hx of tooth extraction Hx of tonsillectomy Family History Family History Father Diabetes mellitus Asthma Mother Hypertension Asthma History of depression Social History Social History Are you a primary home care manager rn to a significant other at home: Yes (children, will be there also for childcare) Do you presently have visiting nurse or other home services: No Alcohol intake: current Alcohol intake frequency: holidays/special occasions only Patient Tobacco Use Status: Former Tobacco user Tobacco use type: Cigarette Smoked in Last 30 Days: No Advance Directives: No Advance Directives Information Provided: No Patient : No Sexual orientation: Straight/Heterosexual Physical Exam ED Vital Signs: Vital Signs - 24 hr 10/04/24 18:29 10/04/24 20:33 10/04/24 21:36 Temperature 98.6 F 98.7 F Pulse Rate 93 71 Respiratory Rate 18 16 16 Blood Pressure 135/64 118/55 L Pulse Oximetry 100 97 Oxygen Delivery Method Room Air Room Air Room Air 10/05/24 00:35 10/05/24 00:36 Temperature 98.7 F 98.7 F Pulse Rate 74 74 Respiratory Rate 16 16 Blood Pressure 114/57 L 114/57 L Pulse Oximetry 98 98 Oxygen Delivery Method Room Air Room Air BMI result Body Mass Index 38.4 Const Other: The patient is awake and alert with a normal mental status. She is quite pleasant and talkative. She has not appear obviously acutely ill. HENMT Head: Yes normal to inspection Face and sinus: Yes normal facial exam Mouth: Normal oral and palatal mucosa present and moist mucous membranes Eyes General: appearance normal, both eyes and all related structures Neck Neck: Yes full ROM Resp Effort & Inspection: normal respiratory effort Auscultation: clear to auscultation bilaterally Cardio Rate: regular rate Rhythm: regular rhythm Heart sounds: S1 normal heart sound present and S2 normal heart sound present GI Other: The abdomen is soft. There was right lower quadrant tenderness. Skin General skin exam: no rashes or lesions noted Neuro Other: The patient is awake and alert with a normal mental status. Cranial nerves are intact. She moves her extremities normally. Extrem Other: No peripheral edema Course Course Course Narrative: This is a rapid medical exam. Deferred additional HPI, ROS, PE to primary provider. Deferred additional HPI, ROS, PE to primary provider. 43 yo female with PMH of asthma, DM, HTN here with complaints of generalized abdominal pain since saturday with constipation. Did enemas, laxatives over the last few days and having some liquid stool. Today did miralax prep and then started having vomiting. Currently on Wegovy. No abdominal surgical history. Will obtain labs, UA, ur preg, KUB Zofran given in triage ALIRIOS -Ronn Barney APRN Medical Decision Making Medical Decision Making [facility] Narrative: The patient is a 43-year-old woman who presents with abdominal pain that has been getting worse over the last week. It has settled into her right lower quadrant and for the last 2 days she has had a diminished appetite. She is tender in the right lower quadrant[place] [phone]. She has been thinking she might be constipated because of Wegovy. Plain film of the abdomen did not show any evidence of constipation. We therefore did a CT scan of the abdomen and pelvis. This was negative for appendicitis or any other obviously acute process. There are some ovarian cysts bilaterally. 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 Her urinalysis was abnormal. She denies any symptoms of urinary tract infection. Lab Data 10/04/24 18:40 10/04/24 18:40 Labs: Lab Results 10/04/24 10/04/24 Range/Units 18:40 19:43 WBC 14.0 H (4.8-10.8) X10*3/uL RBC 5.43 (4.20-5.50) X10*6/uL Hgb 13.8 (12.0-16.0) g/dl Hct 41.9 (37.0-47.0) % MCV 77.2 L (80.0-98.0) fL MCH 25.4 L (27.0-33.0) pg MCHC 32.9 (31.0-35.0) g/dl RDW 13.9 (11.0-16.0) % Plt Count 509 H (160-400) X10*3/uL MPV 8.6 L (9.4-12.3) fL Immature Gran % (Auto) 0.4 (0.0-0.4) % Neut % (Auto) 70.6 (45-73) % Lymph % (Auto) 22.3 (20-40) % Harper % (Auto) 5.8 (2-11) % Eos % (Auto) 0.6 (0-4) % Baso % (Auto) 0.3 (0-2) % Lymph # (Auto) 3.1 (1.2-4.9) X10*3/uL Harper # (Auto) 0.8 (0.1-1.2) X10*3/uL Eos # (Auto) 0.1 (0.0-0.4) X10*3/uL Baso # (Auto) 0.0 (0.0-0.2) X10*3/uL Abs Immat Gran (auto) 0.06 H (0.00-0.03) X10*3/uL Absolute Neuts (auto) 9.9 H (2.0-8.3) x10*3/uL Absolute Nucleated RBC 0.000 (0.0-0.012) X10*3/uL Nucleated RBC % (auto) 0.0 (0.0-0.2) /100WBC Sodium 139 (135-145) mmol/L Potassium 3.1 L (3.3-5.1) mmol/L Chloride 104 (96-108) mmol/L Carbon Dioxide 20 L (22-29) mmol/L Anion Gap 18 (12-20) BUN 9 (9-16) mg/dL Creatinine 1.08 (0.5-1.4) mg/dL Estim Creat Clear Calc 72.9 Estimated GFR 56 Random Glucose 120 H (60-115) mg/dL Calcium 10.3 H D (8.4-10.2) mg/dL Total Bilirubin 0.5 (0.0-1.0) mg/dL Direct Bilirubin 0.2 (0.0-0.5) mg/dL AST 15 (5-31) U/L ALT 12 (0-31) U/L Alkaline Phosphatase 128 H (39-117) U/L Total Protein 8.3 H (6.5-8.0) g/dL Albumin 4.6 (3.5-5.0) g/dL Lipase 75 (8-78) U/L Urine Color Dark Yellow Urine Appearance Cloudy Urine pH 5.5 (5.0-9.0) Ur Specific [place] 1.020 (1.005-1.025) Urine Protein 300 (3+) H (Neg-Trace) mg/dL Urine Glucose (UA) Negative (Negative) mg/dL Urine Ketones Trace (Negative) mg/dL Urine Blood Negative (Negative) Urine Nitrite Negative (Negative) Ur Leukocyte Esterase Moderate (2+) H (Negative) Urine RBC 3-5 H (0-2) /HPF Urine WBC 21-50 H (0-5) /HPF Ur Squamous Epith Cells 11-20 (0-2) /HPF Urine Bacteria 2+ (None Seen) Hyaline Casts >20 (0-2) /LPF Granular Casts Present Urine Test NEGATIVE (NEGATIVE) Medications Administered Discontinued Medications Generic Name Dose Route Start Last Admin Trade Name Freq PRN Reason Stop Dose Admin Sodium Chloride 1,000 mls @ 999 mls/hr 10/04/24 21:30 10/04/24 23:00 Ns IV 10/04/24 22:30 Infused .Q1H1M JANUSZ Infusion Iohexol 85 ml 10/04/24 22:08 10/04/24 22:09 Iohexol 350 Mg/Ml 100 Ml Infus..Btl IV 10/04/24 22:09 85 ml ONCE ONE Administration Ondansetron HCl 4 mg 10/04/24 18:32 10/04/24 18:34 Ondansetron Odt 4 Mg Tab.Rapdis TRANSLINGU 10/04/24 18:33 4 mg ONCE ONE Administration Discharge Plan Discharge Clinical Impression: Abdominal pain Patient Disposition: Home, Self-Care Additional Instructions: Your testing in the emergency room today does not give any good explanation for the symptoms you have been experiencing recently. You do not have appendicitis. Additionally you do not seem constipated. In fact I think you have a lot of liquid in your colon and you may have loose bowel movements for the next few days. I would recommend eating a bland diet for the next several days and trying to eat very small amounts of food. Please follow up soon with your regular doctor. The CT scan showed that you have some cysts on your ovaries. 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 Return to the emergency room if significantly worse. Prescriptions: No Action omeprazole 40 mg capsule,delayed release(DR/EC) 40 mg PO DAILY Qty: 90 0RF norgestimate-ethinyl estradiol [Tri-Sprintec (28)] 0.18/0.215/0.25 mg-35 mcg (28) tablet 1 tab PO DAILY albuterol sulfate 90 mcg/actuation HFA aerosol inhaler 1 inh inhalation QID PRN (Reason: Shortness Of Breath Or Wheezing) hydrocortisone [Proctosol HC] 2.5 % cream with perineal applicator topical TID-QID metformin 500 mg tablet 500 mg PO QAM amlodipine 10 mg tablet 10 mg PO DAILY loratadine 10 mg tablet 10 mg PO DAILY PRN (Reason: Allergic Symptoms) hydrochlorothiazide 25 mg tablet 25 mg PO QAM fluticasone propionate 50 mcg/actuation spray,suspension 2 spray intranasal DAILY PRN (Reason: Allergy Symptoms) hydroxyzine HCl 10 mg tablet 15 mg PO DAILY dicyclomine 10 mg capsule 10 mg PO DAILY (DME) lancets [TRUEplus Lancets] 33 gauge misc See Rx Instructions .ROUTE BID Qty: 100 Rx Instructions: As directed (DME) FreeStyle Lite Strips Strip See Rx Instructions .ROUTE BID Qty: 10 Rx Instructions: As directed Interventions: ED Discharge Assessment Last Done: 10/05/24 00:36 Discharge Date/Time: 10/05/24 00:55 Print Language: Hungarian
[2024-10-04 18:29] VITALS: BP 135/64; PULSE 93; RESP 18; TEMP 37; O2SAT 100; BMI 38.4
[2024-10-04] MEDS: Ondansetron ODT 4 MG TAB.RAPDIS TRANSLINGU (18:34)
[2024-10-04 18:43] LABS: MANUAL DIFF FLAG NO
[2024-10-04 18:46] LABS: Basophils Percent Auto 0.3 % (0-2); Eosinophils Absolute Auto 0.1 X10*3/uL (0.0-0.4); Eosinophils Percent Auto 0.6 % (0-4); Hematocrit 41.9 % (37.0-47.0); Hemoglobin 13.8 g/dl (12.0-16.0); Imm Gran Abs Auto 0.06 X10*3/uL (0.00-0.03); Imm Gran Pct Auto 0.4 % (0.0-0.4); Lymphocytes Absolute Auto 3.1 X10*3/uL (1.2-4.9); Lymphocytes Percent Auto 22.3 % (20-40); Mean Corpuscular HGB Conc 32.9 g/dl (31.0-35.0); Mean Corpuscular Hemoglobin 25.4 pg (27.0-33.0); Mean Corpuscular Volume 77.2 fL (80.0-98.0); Mean Platelet Volume 8.6 fL (9.4-12.3); Monocytes Absolute Auto 0.8 X10*3/uL (0.1-1.2); Monocytes Percent Auto 5.8 % (2-11); Neutrophils Absolute Auto 9.9 x10*3/uL (2.0-8.3); Neutrophils Percent Auto 70.6 % (45-73); Platelet Count 509 X10*3/uL (160-400); Red Blood Count 5.43 X10*6/uL (4.20-5.50); Red Cell Distribution Width 13.9 % (11.0-16.0)
[2024-10-04 18:58] LABS: Alanine Aminotransferase 12 U/L (0-31); Albumin Level 4.6 g/dL (3.5-5.0); Alkaline Phosphatase 128 U/L (39-117); Anion Gap 18 (12-20); Aspartate Amino Transferase 15 U/L (5-31); Bilirubin Direct 0.2 mg/dL (0.0-0.5); Bilirubin Total 0.5 mg/dL (0.0-1.0); Blood Urea Nitrogen 9 mg/dL (9-16); Calcium 10.3 mg/dL (8.4-10.2); Carbon Dioxide 20 mmol/L (22-29); Chloride 104 mmol/L (96-108); Creatinine Clr Calc Pharmacy 72.9; Estimated Glomerular Filt Rate 56; Glucose Random 120 mg/dL (60-115); Lipase 75 U/L (8-78); Potassium 3.1 mmol/L (3.3-5.1); Sodium 139 mmol/L (135-145); Total Protein 8.3 g/dL (6.5-8.0)
[2024-10-04 19:51] LABS: Appearance Urine Cloudy; Color Urine Dark Yellow; Glucose Urine UA Negative (Negative); Leukocyte Esterase Urine Moderate (2+) (Negative); Nitrite Urine Negative (Negative); PH 5.5 (5.0-9.0); UMIC TRIGGER UACC YES; Urine Blood Negative (Negative); Urine Ketones Trace mg/dL (Negative); Urine Protein 300 (3+) mg/dL (Neg-Trace)
[2024-10-04 19:54] LABS: UPreg QC Valid YES; Urine Pregnancy NEGATIVE (NEGATIVE)
[2024-10-04 19:59] LABS: Bacteria Urine 2+ (None Seen); Granular Casts Urine Present; Hyaline Casts Urine >20 /LPF (0-2); UACC Culture Trigger YES; WBC Urine 21-50 /HPF (0-5)
[2024-10-04 20:33] VITALS: BP 118/55; PULSE 71; RESP 16; TEMP 37.1; O2SAT 97
[2024-10-04 21:36] VITALS: RESP 16
[2024-10-04] MEDS: 0.9 % Sodium Chloride 1,000 ML 999 ML IV (21:56)
[2024-10-04] MEDS: iohexoL 350 MG/ML 100 ML INFUS..BTL 85 ML IV (22:09)
[2024-10-05 00:35] VITALS: BP 114/57; PULSE 74; RESP 16; TEMP 37.1; O2SAT 98
[2024-10-05 00:36] VITALS: BP 114/57; PULSE 74; RESP 16; TEMP 37.1; O2SAT 98
== END 2024-10-05 00:55 | disposition home or self-care (01) ==
PROVIDERS: Nurse Practitioner Family; Emergency Provider Emergency Medicine; PCP Student in an Organized Health Care Education/Training Program
DX: R10.31 Right lower quadrant pain (principal); R11.2 Nausea with vomiting, unspecified; Z87.891 Personal history of nicotine dependence; Z79.899 Other long term (current) drug therapy
CPT/HCPCS: 36415; 74018; 74177; 80048; 80076; 81001; 81025; 83690; 85025; 87086; 96360; 99284; Q9967

== ENCOUNTER 2025-02-17 15:33 | Outpatient (AMB) | payer MEDICAID, SELFPAY ==
--- NOTE | 2025-02-17 15:34 | MHC.OFFVIS ---
Intake Visit Reasons: MEdication follow up Intake Note: Hawa presents as a telehealth today for a follow up. CC: She states she was unable to do her BA swallow due to having issues with her vomiting and nausea prior the test. She had tests and was not sure what it was as her stomach was empty. She never had it rescheduled this. 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 Initial visit 07/2022: History was obtained from the patient, who states that for the past 6 months she has been having loose watery diarrhea which is associated with severe abdominal pain and nausea. She states that she is going up to 8-10 times a day to the bathroom to pass nonbloody watery bowel movements. There urge to defecate triggers severe lower abdominal pain that progressively gets worse as she is passing the bowel movement and goes away within an hour of having a BM. While she is on the toilet, she ends up spending upwards of 20-30 minutes due to the pain. The pain is so severe that it makes her nauseous sometimes. Denies any vomiting, changes in appetite, fevers. No unintentional weight loss. She does note occasional rectal bleeding on wiping. Had 1 episode 2 weeks ago, where she had persistent rectal bleeding with each bowel movement for 6 days. Therapy so far includes dicyclomine, which she does not think has helped. No family history of colon cancer in first-degree relative. Sister has history of Crohn's disease. Has gallbladder in Situ. Patient has never had a colonoscopy. 09/10/22: Reports another episode of worsening rectal pressure and pain 2 weeks ago. At that time also had bleeding with passage of stool. She was seen in the urgent care, and prescribed hydrocortisone for hemorrhoidal bleeding. Has not taken it yet. Reports no change in her frequency of bowel movements. However, the bowel movements are not as watery as before. Avoiding to spend time on the bathroom. No unintentional weight loss. Of note, continues to carry her baby who weighs 26 lb. She also reports other pelvic floor symptoms including urge and stress urinary incontinence. 12/12/22: Colonoscopy results reviewed patient was reassured evidence of infectious, or neoplastic process to explain diarrhea. Microscopic colitis ruled out as well on biopsy. MRI results were also reviewed, and patient is aware that she is due for another MRI next year with [facility]. In terms of her diarrhea, continues with soft stools 2 to 3 times a day. Main issue is urgency right after eating. Seeing a pelvic floor therapist next month. 01/01/24: Booked as a tele visit as per her preference. Reports no abdominal cramping, bowel movements are regular. Reports significant ongoing mental health issues, for which she is actively seeing a therapist as well as a psychiatrist these days. Aware of her fatty liver disease, but has not been able to work on risk factor modification just yet. MRI results reviewed with the patient, she was reassured that these are benign lesions that do not need follow-up. 02/17/25: Here for routine follow up on a televisit - missed 06/2024 appt as was feeling ok. Was perv on wegovy and now zepbound. Unable to taper down omeprazole but aware could be due to med side effect and delayed gastric emptying leading to higher risk of reflux. Has lost > 30 lbs! Also had IUD placed last year and has been noticing lower abd /pelvic cramping along with spotting. OBgyn is aware. [facility] Medical History (Updated 10/06/24 @ 00:01 by Angelo Dadionisio) Abnormal glucose complicating Bipolar depression History of depression History of anxiety Hypertension Asthma GERD (gastroesophageal reflux disease) Surgical History Hx of colonoscopy Hx of tooth extraction Hx of tonsillectomy Family History Father Diabetes mellitus Asthma Mother Hypertension Asthma History of depression Social History Are you a primary menagerie caretaker to a significant other at home: Yes (children, will be there also for childcare) Do you presently have visiting nurse or other home services: No Alcohol intake: current Alcohol intake frequency: holidays/special occasions only Patient Tobacco Use Status: Former Tobacco user Tobacco use type: Cigarette Sexual orientation: Straight/Heterosexual Physical Exam Vital Signs: Video visit: No acute distress No icterus noted No facial asymmetry Speaking in full sentences Telehealth Telehealth Telehealth Platform: [employer] Location of provider rendering services: practice address Location of patient: address on file Patient Identification confirmed using: Name, : Yes Telehealth method: video Patient verbally consented to treatment: Yes Patient verbally consented to billing insurance company: Yes Patient informed of any privacy concerns related to visit: Yes Minutes spent on Phone/Video with Pt.: 16 Assessment & Plan Assessment & Plan (1) GERD (gastroesophageal reflux disease): Code(s): K21.9 - Gastro-esophageal reflux disease without esophagitis Category: Medical (2) Obesity, Class III, BMI 40-49.9 (morbid obesity): Code(s): E66.01 - Morbid (severe) obesity due to excess calories Category: Medical (3) Fatty liver: Code(s): K76.0 - Fatty (change of) liver, not elsewhere classified Category: Medical Plan 1. GERD Pyrosis better but has regurgitation post meals. Barium swallow recommended for further eval. Will defer tapering off omeprazole for now. 2. Fatty liver Has lost > 30 lbs! Congratulated on progress. Repeat LFTs already oprdered by PCP. Will alos get CBC to calculate Fib-4. Pt also getting lipid panel rechecked, if cont to have high LDL, would strongly recommend mod intensity statin such as atorva or rosuva Follow up 6 months Orders: Orders [place] barium swallow Today K21.9 - Gastro-esophageal reflux disease without esophagitis Complete Blood Count no Diff Today K76.0 - Fatty (change of) liver, not elsewhere classified Medications: New omeprazole takeon empty stomach. wait 30 mins before eating/drinking 20 mg PO DAILY 90 caps 1RF psyllium husk (Reguloid (psyllium husk)) mix into at least 8 oz of water or juice before administering 1 tsp PO DAILY 90 days 284 grams 1RF Discontinued omeprazole Discontinued Reason: Doctor's Order 40 mg PO QPM 90 caps 0RF Coding Level of Care Code Tele Est Pt Level 4 (05859) Diagnoses GERD (gastroesophageal reflux disease) K21.9 Obesity, Class III, BMI 40-49.9 (morbid obesity) E66.01 Fatty liver K76.0
--- OUTSIDE RECORDS SUMMARY | 2025-02-17 18:09 | XMS_ITS | Encounter Summary ---
Author Organization [employer] Address [address] [place] [address] [address] [place] [address] Care Team Providers Care Icebox Worker Name Role Phone Laurel Valdes MD Primary Care Provider [phone] Encounter Details Date Type Department Care Team (Late Contact Info) Description 11/02/2022 Orders Only [facility] MEDICINE [address] [place], [place] [phone] Laurel Valdes MD [address] [place], [place] [phone] GERD without esophagitis Social History Tobacco Use Types Packs/Day Years Used Date Smoking Tobacco: Never Assessed Comments Unknown Sex and Gender Information Value Date Recorded Sex Assigned at Female 08/27/2022 10:17 AM EDT Legal Sex Female 10:17 AM EDT Gender Identity Female 08/27/2022 10:17 AM EDT Sexual Orientation Choose not to disclose 2021 10:17 AM EDT documented as of this encounter Plan of Treatment Upcoming Encounters Date Type Department Care Team (Late st Contact Info) Description 03/04/2025 11:15 AM EDT Telemedicine [facility] MED & PEDS [address] [place], [place] [phone] Laurel Valdes MD [address] [place], [place] [phone] documented as of this encounter Visit Diagnoses Diagnosis GERD without esophagitis Esophageal reflux documented in this encounter Care Teams Icebox Worker Relationship Specialty Start Date End Date Laurel Valdes MD [address] [place] [address] PCP - General Family Medicine 11/26/13 documented as of this encounter
--- OUTSIDE RECORDS SUMMARY | 2025-02-17 18:09 | XMS_ITS | Encounter Summary ---
Author Organization [facility] Address [address] [place] [address] [address] [place] [address] Care Team Providers Care Repair Electric Motor Assembler Name Role Phone Laurel Valdes MD Primary Care Provider [phone] Encounter Details Date Type Department Care Team (Late st Contact Info) Description 04/08/2023 Orders Only [facility] MEDICINE [address] [place] [address] Jane Tapia LPN Social History Tobacco Use Types Packs/Day Years [...] Info) Description 03/04/2025 11:15 AM EDT Telemedicine [facility] MED & PEDS [address] [place] [address] Laurel Valdes MD [address] [place] [address] documented as of this encounter Visit Diagnoses Not on filedocumented in this encounter Care Teams Repair Electric Motor Assembler Relationship Specialty Start Date End Date Laurel Valdes MD [address] [place] [address] PCP - General Family Medicine 11/26/13 documented as of this encounter
--- OUTSIDE RECORDS SUMMARY | 2025-02-17 18:09 | XMS_ITS | Encounter Summary ---
Author Organization [employer] Address [address] [place] [address] [address] [place] [address] Care Team Providers Care Director Audience Marketing Name Role Phone Laurel Valdes MD Primary Care Provider [phone] Reason for Visit * Reason Onset Date Comments Med Refill 09/14/2024 Encounter Details Date Type Department Care Team ([facility] st Contact Info) Description 09/14/2024 Telephone [facility] MED & PEDS [address] [facility] [place] [address] Laurel Valdes MD [address] [place] [address] Med Refill Social History Tobacco Use Types Packs/Day Years Used Date Smoking Tobacco: Never Smokeless Tobacco: Never Depression Answer Date Recorded Patient Health Questionnaire-9 Score 24 09/27/2023 Patient Health Questionnaire-9 Score 24 09/27/2023 Last PHQ-9: Questionnaire Data Not on file 1 11/28/2022 Housing Stability Answer Date Recorded What is your housing situation today? I have charlotte pereyra 01/21/[address] you li ve. Do you have problems with any of the following? None of the above 01/21/2024 Food Insecurity Answer Date Recorded Within the past 12 months, y ou worried that your food would run out before you got money to buy more: Never True 01/21/2024 Within the past 12 months,th e food you bought just didn't last and you didn't have enough money to get more: Never True Transportation Answer Date Recorded In the past 12 months, has l ack of transportation kept you from medical appts, meetings, work or from getting things needed for daily living? No 01/21/2024 Utilities Answer Date Recorded In the past 12 months, has t he electric, gas, oil or water company threatened to shut off services in your home? No 01/21/2024 Depression Answer Date Recorded Patient Health Questionnaire-2 Score 6 09/27/2023 Comments No Sex and Gender Information Value Date Recorded Sex Assigned at Female 08/27/2022 10:17 AM EDT Legal Sex Female 10:17 AM EDT Gender Identity Female 08/27/2022 10:17 AM EDT Sexual Orientation Choose not to disclose 2021 10:17 AM EDT documented as of this encounter Miscellaneous Notes * Telephone Encounter - Laurel Valdes MD - 09/15/2024 11:35 AM EST sent * Telephone Encounter - Jane Tapia LPN - 09/14/2024 10:57 AM EST Please review message bilow * Telephone Encounter - Jane Tapia LPN - 09/14/2024 10:57 AM EST Refills have been requested for the following medications: Other - Ondansetron For my nausea cause from wegovy injection. Already prescribed in march but no refills and i dont see it in my list of meds Preferred pharmacy: [facility] [place] - [address] [facility] Delivery method: Pickup documented in this encounter Plan of Treatment Upcoming Encounters Date Type Department Care Team ([facility] st Contact Info) Description 03/04/2025 11:15 AM EDT Telemedicine [facility] MED & PEDS [address] [place] [address] Laurel Valdes MD [address] [place] [address] documented as of this encounter Visit Diagnoses Not on filedocumented in this encounter Additional Health Concerns Assessment Noted Time PHQ-9 Depression Total Score: 24 023 9:56 AM EST documented as of this encounter Care Teams Director Audience Marketing Relationship Specialty Start Date End Date Laurel Valdes MD [address] [place] [address] PCP - General Family Medicine 11/26/13 documented as of this encounter
--- OUTSIDE RECORDS SUMMARY | 2025-02-17 18:09 | XMS_ITS | Clinical Summary ---
Author Organization [employer] Address [address] [place] [address] 7[address] [place] [address] Care Team Providers Care Popcorn Attendant Name Role Phone Laurel Valdes MD Primary Care Provider [phone] Allergies No known active allergies Medications * This document contains information received from the source organization and may not represent a complete record from that organization. fluticasone (Flonase) 50 MCG/ACT nasal spray INSERT TWO SPRAYS IN EACH NOSTRIL ONCE DAILY 48 g 04/08/20 23 Active triamcinolone (Kenalog) 0.1 % cream Apply topically if needed in the morning and at bedtime (pain and swelling). 30 g 2 01/21/20 24 Active loratadine (Claritin) 10 MG tablet TAKE ONE TABLET EVERY MORNING 90 tablet 1 03/13/20 24 Active Easy Touch Lancets 33G/Twist misc Use 1 tab BID 100 each 11 03/17/20 24 Active minoxidil (Loniten) 2.5 MG tabletIndicatio ns:Androgenetic alopecia Take 1 tablet (2.5 mg) by mouth Once per day. 30 tablet 11 05/19/20 24 025 Active clobetasol (Temovate) 0.05 % ointmentIndicat ions:Hx of nummular eczema APPLY TOPICALLY TO THE AFFECTED AREA TWICE DAILY 15 g 08/11/20 24 Active atorvastatin (Lipitor) 10 MG tablet Take 1 tablet (10 mg) by mouth Once per day. 30 tablet 11 08/13/20 24 025 Active hydrOXYzine HCl (Atarax) 25 MG tablet Take 25 mg by mouth if needed in the morning, at noon, in the evening, and at bedtime. 07/22/20 24 Active Multiple Vitamin (Multivitamin) tablet Take 1 tablet by mouth Once per day. 07/23/20 24 Active omeprazole (PriLOSEC) [address] capsule Take 40 mg by mouth Once per day. 06/08/20 24 Active glucose blood (FREESTYLE LITE) test stripIndication s:Type 2 diabetes mellitus without complication, without long-term current use of insulin ([facility]) TEST BLOOD SUGAR TWICE DAILY 50 strip 5 09/02/20 24 Active Blood Glucose Monitoring Suppl (FreeStyle [place] Lite) w/Device kit Use to test blood sugar 2 times daily 1 kit 09/02/20 24 Active hydroCHLOROthia zide (HYDRODiuril) 25 MG tabletIndicatio ns:Hypertension , unspecified type TAKE 1 TABLET BY MOUTH EVERY MORNING 90 tablet 1 09/18/20 24 Active ondansetron (Zofran) 4 MG tablet TAKE ONE TABLET EVERY 8 HOURS NEEDED FOR NAUSEA AND VOMITING 30 tablet 10/30/19 25 Active albuterol (Ventolin HFA) 108 (90 Base) MCG/ACT inhaler INHALE TWO PUFFS EVERY 4 TO 6 HOURS NEEDED 18 g 2 11/17/19 25 Active amLODIPine (Norvasc) 10 MG tablet TAKE ONE TABLET DAILY 90 tablet 1 11/27/19 25 Active lamoTRIgine (LaMICtal) 200 MG tablet Take 1 tablet by mouth in the morning. 11/11/19 25 Active Vitamins-Lipotr opics (B Complex Formula 1, Lipotrop,) tablet Take 1 tablet by mouth in the morning. 10/14/20 24 Active metFORMIN (Glucophage) 500 MG tablet Take 1 tablet (500 mg) by mouth Once per day. 90 tablet 3 12/08/19 25 Active Zepbound 5 MG/0.5ML solution auto-injector INJECT 5 MG'S SUBCUTANEOUSLY ONCE PER WEEK 2 mL 3 12/22/19 25 Active Tirzepatide-Kalin ght Management (Zepbound) 7.5 MG/0.5ML solution auto-injector Inject 0.5 mL (7.5 mg) under the skin 1 (one) time per week. 2 mL 2 12/31/19 25 Active Tirzepatide-Kalin ght Management (Zepbound) 7.5 MG/0.5ML solution auto-injector Inject 0.5 mL (7.5 mg) under the skin 1 (one) time per week. 2 mL 01/29/20 026 Active Tirzepatide-Kalin ght Management (Zepbound) 10 MG/0.5ML solution auto-injector Inject 0.5 mL (10 mg) under the skin 1 (one) time per week. 2 mL 01/30/20 026 Active Active Problems Problem Noted Date Diagnosed Date SURESH (generalized anxiety disorder) 09/27/2023 Bipolar I disorder, current episode depressed Depressive disorder 02/07/2023 Diabetes mellitus 02/07/2023 Gastroesophageal reflux disease 02/07/2023 Hypertension 02/07/2023 Asthma 04/15/2014 Encounters Date Type Department Care Team Description 01/29/2025 Orders Only [facility] [address] [facility] [address] Laurel Valdes MD 01/28/2025 Orders Only [facility] [address] [facility] [place] [address] Laurel Valdes MD 01/27/2025 Telephone [facility] MED[facility] [address] [place] [address] Laurel Valdes MD Med Refill 01/08/2025 Population Health Risk Score [facility] (C[facility]) Department [address] [place] [address] [phone] Provider, Population Health Generic 12/30/2024 9:00 AM EST Telemedicine [facility] [address] [facility] [place] [address] Laurel Valdes MD Type 2 diabetes mellitus with other circulatory complication, without long-term current use of insulin (CMS/HCC) (Primary Dx); Class 2 severe obesity with serious comorbidity and body mass index (BMI) of 35.0 to 35.9 in adult, unspecified obesity type (CMS/HCC) 12/30/2024 Travel 12/29/2024 Travel 12/22/2024 Telephone [facility] [address] [facility] [place] [address] Laurel Valdes MD Med Refill 12/22/2024 Refill [facility] [address] [facility] [place] [address] Laurel Valdes MD 12/17/2024 Telephone [facility] [address] [place] [address] Laurel Valdes MD Appointment Request (Pt needs derm appt) 12/15/2024 Telephone [facility] [address] [place], [place] [phone] Laurel Valdes MD Appointment Request 12/08/2024 3:00 PM EST Telemedicine [facility] [address] [place] [address] Naty Cruz PharmD Type 2 diabetes mellitus without complication, without long-term current use of insulin (CMS/HCC) (Primary Dx); Primary hypertension 11/26/2024 Orders Only [facility] [address] [place] [address] Laurel Valdes MD Type 2 diabetes mellitus without complication, without long-term current use of insulin (CMS/HCC) (Primary Dx) 11/25/2024 Refill [facility] [address] [place] [address] Laurel Valdes MD from Last 3 Months Immunizations Name Administration Dates Next Due Hep B, Adolescent or Pediatric 03/08/2004,2003,11/26/2003 Influenza injectable quadriv alent preservative free 10/05/2015 Tdap 10/17/2021,10/02/2018 Social History Tobacco Use Types Packs/Day Years Used Date Smoking Tobacco: Never Smokeless Tobacco: Never Tobacco Cessation:Counseling Given: Not Answered Depression Answer Date Recorded Patient Health Questionnaire-9 [...] Recorded Patient Health Questionnaire-2 Score 6 09/27/2023 Internet Access Answer Date Recorded Internet Access Q1 Yes 11/02/2024 Internet Access Q2 Not on file 11/02/2024 Comments No Sex and Gender Information Value Date Recorded Sex Assigned at Female 08/27/2022 10:17 AM EDT Legal Sex Female 10:17 AM EDT Gender Identity Female 08/27/2022 10:17 AM EDT Sexual Orientation Choose not to disclose 2021 10:17 AM EDT Last Filed Vital Signs Vital Sign Reading Time Taken Comments Blood Pressure 131/73 11/12/2024 11:20 AM EST Pulse 85 11/12/2024 11:20 AM EST Temperature 36.6 ??C (97.8 ??F) 11/12/2024 11:[address] Respiratory Rate 18 11/12/2024 11:20 AM EST Oxygen Saturation 99% 11/12/2024 11:20 AM EST Inhaled Oxygen Concentration - - Weight 91.6 kg (202 lb) 11/12/2024 11:20 AM EST Height 160.7 cm (5' 3.25 ) 11/12/2024 11:[address] Body Mass Index 35.5 11/12/2024 11:20 AM EST Plan of Treatment Upcoming Encounters Date Type Department Care Team (Late st Contact Info) Description 03/04/2025 11:15 AM EDT Telemedicine [facility] [address] [place] [address] Laurel Valdes MD [address] [place] [address] Health Maintenance Due Date Last Done Comments HIV Screening 1981 Eye Exam 1991 Alcohol/Substance Use Screening 1993 Family Planning (PISQ) 1996 Hepatitis C Screening 1999 Hepatitis B Vaccines (1 of 3 - 19+ 3-dose series) 2000 03/08/2004, 12/27/2003, 11/26/2003 Pneumococcal Vaccine: Pediatrics (0 to 5 Years) and At-Risk Patients (6 to 49) Years) (1 of 2 - PCV) 2000 Pap Smear 2002 Cervical Cancer Screening 2011 HPV/Cotest 2011 Depression Monitoring 03/28/2024 09/27/2023, 023 Diabetes: Urine Protein Screening 05/30/2024 05/30/2023 Depression Screening 09/27/2024 09/27/2023, 09/27/20 23 SDOH Screening 01/20/2025 01/21/2024 Influenza Vaccine (#1) 2025 10/05/2015 Postp oned from 06/28/2024 (Patient Refused) Diabetes: Hemoglobin A1C 05/12/2025 025, 08/04/2024, 01/21/2024, Additional history exists Tobacco Screening 05/19/2025 05/19/2024 Lipid Panel 08/04/2025 08/04/2024, 05/30/2023 COVID-19 Vaccine ( season) 2025 04/17/2021, 03/24/2021 Postponed from 06/28/2024 (Patient Refused) Diabetes: Foot Exam 08/13/2025 08/13/2024, 08/13/2024, 08/13/2024, Additional history exists Mammogram 09/07/2025 09/07/2024, 09/06/2023 Zoster Vaccines (1 of 2) 2031 DTaP/Tdap/Td Vaccines (3 - Td or Tdap) 10/17/2031 10/17/2021, 10/02/2018 RSV Patients and Patients Aged 60 years or older (1 - 1-dose 75+ series) 2056 HIB Vaccines Aged Out No longer eligi ble based on patient's age to complete this topic HPV Vaccines Aged Out No longer eligi ble based on patient's age to complete this topic Hepatitis A Vaccines Aged Out No long er eligible based on patient's age to complete this topic IPV Vaccines Aged Out No longer eligi ble based on patient's age to complete this topic Meningococcal Vaccine Aged Out No darwin anne marie eligible based on patient's age to complete this topic RSV under 20 months Aged Out No longe r eligible based on patient's age to complete this topic Rotavirus Vaccines Aged Out No longer eligible based on patient's age to complete this topic Procedures Procedure Name Priority Date/Time Associated Diagnosis Comments POCT GLYCATED HEMOGLOBIN, TOTAL Routine 11/12/2024 11:31 AM EST Type 2 diabetes mellitus without complication, without long-term current use of insulin ([facility]) BI MAMMOGRAM SCREENING TOMOSYNTHESIS BILATERAL Routine 09/07/2024 3:48 PM EST LIPID PANEL, STANDARD Routine 08/04/2024 10:43 AM EDT Type 2 diabetes mellitus without complication, without long-term current use of insulin ([facility]) ALBUMIN, RANDOM URINE W/CREATININE Routine 05/30/2023 2:12 PM EDT from Last 3 Months or Most Recently Relevant to Health Maintenance Results * POCT HGB A1C (11/12/2024 11:31 AM EST) Hemoglobin A1C 5.7 4.0 - 6.0 % QC Media Lot # [id number] Lot# Expiration Date [id number] Blood 11/12/2024 11:3 1 AM EST Laurel Valdes MD POINT OF CARE TEST ENTER/EDIT OR DERABLES Final Result * BI Mammogram Screening Tomosynthesis Bilateral (09/07/2024 3:48 PM EST) Anatomical Region Laterality Modality Breast Bilateral Mammography 09/07/2024 3:48 PM EST Narrative 09/16/2024 12:11 PM EST ? [facility] ? [address] ?[place] [address] ? Mammography Report ? Signed ? Patient: Gagnon,Hawa ?MR#: [id number] ?? 57 ? : 1980 ?Acct:[id number] ? Age/Sex: 43 / F ?ADM Date: 09/07/24 ? Loc: HO.MAMMO ? Attending Dr: Laurel Valdes MD ? Ordering Physician: Laurel Valdes MD ?Results: 1Negati ?? ve ? Date of Service: 09/07/24 ?Follow Up: 1 Year From Orig ?? inal Mammogram ? Procedure(s): MM tomosynthesis screening BI ?? Accession Number(s): [id number] ? cc: Laurel Valdes MD ? EXAMINATION: ?? MM SCREENING DIGITAL BREAST TOMOSYNTHESIS, BILATERAL ? CLINICAL INFORMATION: ? Screening. Asymptomatic. ? COMPARISON: ?? Mammography: Comparison is made with available priors ? TECHNIQUE: ?? Digital breast mammography with tomosynthesis is performed in both the ?? craniocaudal and mediolateral oblique views along with computer-aided ?? detection (CAD). ? FINDINGS: ?? There are scattered areas of fibroglandular density (ACR BI-RADS breast ?? composition Category b). ? There are no significant masses, abnormal calcifications, or other ?? abnormalities. ? MM/MM tomosynthesis screening BI ?? IMPRESSION: ?? No mammographic evidence of malignancy. ? ASSESSMENT: ? BI-RADS BI-RADS 1 - Negative ? RECOMMENDATION: ?? Routine annual mammography screening. ? 1 year F/U ? This examination should not preclude the clinical evaluation of a ?? suspicious palpable abnormality. ? This patient's information was entered into a reminder system with a ?? target due date for their next mammogram. ? Electronically signed by: ??Elsi Fay DO ??09/16/2024 12:07 PM EST ? Dictated By: ?Elsi Fay DO ? Signed By: ?<Electronically signed by Elsi Fay, DO in OV> ? 09/16/24 1207 ? DD/ 1548 ? TD/TT: 09/07/24 1616 ? Termite Inspector: ? Procedure Note Donreginald, Image - 09/16/2024 [facility] [address] [place] [address] Mammography Report Signed Patient: Josh GagnonR#: [id number] 57 : 1980Acct:[id number] Age/Sex: 43 / FADM Date: 09/07/24 Loc: HO.MAMMO Attending Dr: Laurel Valdes MD Ordering Physician: Laurel Valdes MDResults: 1Negati ve Date of Service: 09/07/24Follow Up: 1 Year From Orig inal Mammogram Procedure(s): MM tomosynthesis screening BI Accession Number(s): [id number] cc: Laurel Valdes MD EXAMINATION: MM SCREENING DIGITAL BREAST TOMOSYNTHESIS, BILATERAL CLINICAL INFORMATION: Screening. Asymptomatic. COMPARISON: Mammography: Comparison is made with available priors TECHNIQUE: Digital breast mammography with tomosynthesis is performed in both the craniocaudal and mediolateral oblique views along with computer-aided detection (CAD). FINDINGS: There are scattered areas of fibroglandular density (ACR BI-RADS breast composition Category b). There are no significant masses, abnormal calcifications, or other abnormalities. MM/MM tomosynthesis screening BI IMPRESSION: No mammographic evidence of malignancy. ASSESSMENT: BI-RADS BI-RADS 1 - Negative RECOMMENDATION: Routine annual mammography screening. 1 year F/U This examination should not preclude the clinical evaluation of a suspicious palpable abnormality. This patient's information was entered into a reminder system with a target due date for their next mammogram. Electronically signed by: Elsi Fay DO 09/16/2024 12:07 PM [facility] Dictated By: Elsi Fay DO Signed By: <Electronically signed by Elsi Fay DO in OV> 09/16/24 1207 DD/ 1548 TD/TT: 09/07/24 1616 Termite Inspector: Laurel Valdes MD IMG BI PROCEDURES Final Result * (ABNORMAL) Lipid Panel, Standard (08/04/2024 10:43 AM EDT) Triglycerides 179(H) <150 mg/dL [facility] Comment:Desirable Triglyceri de: less than 150 mg/dLBorderline High Triglyceride 150-199 mg/dLHigh Triglyceride: 200-499 mg/dLVery High Triglyceride: greater than or equal to 5OO mg/dL Cholesterol 218(H) <200 mg/dL [facility] Comment:Desirable Cholestero l: less than 200 mg/dLBorderline High Cholesterol: 200-239 mg/dLHigh Cholesterol: greater than 239 mg/dL LDL Cholesterol Calculated 139(H) <100 mg/dL [facility] Comment:Desirable LDL: less than 100 mg/dLNear Optimal/Above Optimal LDL: 110- 129 mg/dLBorderline High LDL: 130-159 mg/dLHigh LDL: 160-189 mg/dLVery High LDL: greater than or equal to 190 mg/dL HDL Cholesterol 44 >40 mg/dL [facility] Comment:Desirable HDL: great er than 40 mg/dL Note: This HDL assay may give artificially low results in patients with liver disease. Blood Venous blood specimen / Unknown 08/04/2024 10:43 AM EDT 08/04/2024 2:00 PM EDT Laurel Valdes MD LAB BLOOD ORDERABLES Final Resul t Performing Organization Address [facility] Co de Phone Number [facility] [address] [place] [address] [phone] * Albumin, Random Urine W/Creatinine (05/30/2023 2:12 PM EDT) Creatinine, Urine 186.86 mg/dL [facility] Microalbumin Urine 304.0 mg/L [facility] Microalbum Creatinine Ratio Ur 162.6 ug/mg cr [facility] Comment:Albumin/Creatinine R atio Reference Ranges: Normal: < 30 ug/mg creatinine Microalbuminuria: 30 - 300 ug/mg creatinineClinical Albuminuria: > 300 ug/mg creatinine 05/30/2023 2:12 PM EDT 05/30/2023 7:33 PM EDT Laurel Valdes MD LAB URINE ORDERABLES Final Resul t Performing Organization Address [facility] Co de Phone Number [facility] [address] [place] [address] [phone] from Last 3 Months or Most Recently Relevant to Health Maintenance Insurance [facility] C3 Care Teams Popcorn Attendant Relationship Specialty Start Date End Date Laurel Valdes MD [address] [place] [phone] PCP - General Family Medicine 11/26/13
--- OUTSIDE RECORDS SUMMARY | 2025-02-17 18:09 | XMS_ITS | Encounter Summary ---
Author Organization [facility] Address [address] [place] [address] 7 [place] [address] Care Team Providers Care Seam Finisher Name Role Phone Laurel Valdes MD Primary Care Provider [phone] Encounter Details Date Type Department Care Team (Late st Contact Info) Description 01/17/2023 Orders Only [facility] MED & PEDS [address] [place] [address] Chayo Triana LPN Social History Tobacco Use Types Packs/Day [...] Info) Description 03/04/2025 11:15 AM EDT Telemedicine [facility] MED & PEDS [address] [place] [address] Laurel Valdes MD [address] [place] [address] documented as of this encounter Visit Diagnoses Not on filedocumented in this encounter Care Teams Seam Finisher Relationship Specialty Start Date End Date Laurel Valdes MD [address] [place] [phone] PCP - General Family Medicine 11/26/13 documented as of this encounter
--- OUTSIDE RECORDS SUMMARY | 2025-02-17 18:09 | XMS_ITS | Encounter Summary ---
Author Organization [employer] Address [address] [facility] 7 [place] [address] Care Team Providers Care Forensic Locksmith Name Role Phone Laurel Valdes MD Primary Care Provider [phone] Reason for Visit * Reason Onset Date Comments Appointment Request 12/15/2024 Encounter Details Date Type Department Care Team ([facility] st Contact Info) Description 12/15/2024 Telephone [facility] [address] [place] [address] Laurel Valdes MD [address] [facility] [place] [phone] Appointment Request Social History Tobacco Use Types Packs/Day Years [...] encounter Miscellaneous Notes * Telephone Encounter - Edith Martinez - 12/15/2024 9:15 AM EST Tc from pt requesting a callback as DERM appointment was canceled as pt inform she's not feeling well and will like to r/s [phone] documented in this encounter Plan of Treatment Upcoming Encounters Date Type Department Care Team (Late st Contact Info) Description 03/04/2025 11:15 AM EDT Telemedicine [facility] [address] [place] [address] Laurel Valdes MD [address] [place] [address] documented as of this encounter Visit Diagnoses Not on filedocumented in this encounter Additional Health Concerns Assessment Noted Time PHQ-9 Depression Total Score: 24 023 9:56 AM EST documented as of this encounter Care Teams Forensic Locksmith Relationship Specialty Start Date End Date Laurel Valdes MD [address] [place] [address] PCP - General Family Medicine 11/26/13 documented as of this encounter
--- OUTSIDE RECORDS SUMMARY | 2025-02-17 18:09 | XMS_ITS | Encounter Summary ---
Author Organization [employer] Address [address] [place] [address] 7 [place] [address] Care Team Providers Care Civil Engineering Manager Name Role Phone Laurel Valdes MD Primary Care Provider [phone] Reason for Visit * Reason Onset Date Comments Nurse Triage 01/14/2024 Encounter Details Date Type Department Care Team ([facility] st Contact Info) Description 01/14/2024 Telephone [facility] [address] [facility] [place] [address] Laurel Valdes MD [address] [place] [address] Nurse Triage Social History Tobacco Use Types Packs/Day Years Used Date Smoking Tobacco: Never Smokeless Tobacco: Never Depression Answer Date Recorded Patient Health Questionnaire-9 Score 24 09/27/2023 Patient Health Questionnaire-9 Score 24 09/27/2023 Last PHQ-9: Questionnaire Data Not on file 1 11/28/2022 Depression Answer Date Recorded Patient Health Questionnaire-2 Score 6 09/27/2023 Comments Unknown Sex and Gender Information Value Date Recorded Sex Assigned at Female 08/27/2022 10:17 AM EDT Legal Sex Female 10:17 AM EDT Gender Identity Female 08/27/2022 10:17 AM EDT Sexual Orientation Choose not to disclose 2021 10:17 AM EDT documented as of this encounter Miscellaneous Notes * Telephone Encounter - Julieta Asher RN - 01/14/2024 11:18 AM EDT Triage call Pt reports a skin spot smaller than a dime which has been on right pretty for a month now. It has increased in size, darker red color, neg for pain or itchiness. It is bumpy and rough to touch. Apt with PCP 01/21/24 @ 1100am. Insurance is verified as active prior to booking. Protocol Used: Skin Lesion - Moles or Growths (Adult) Protocol-Based Disposition: See in Office or Video Visit within 2 Weeks Video visit not offered Positive Triage Question: * Skin growth or mole and it is larger than a pencil eraser or increasing in size * All higher-acuity triage questions were negative Care Advice Discussed: * Reasons To Call Back - Fever or pain occurs - Any change in the mole or growth - You become worse * Telephone Encounter - Clarissa Novak - 01/14/2024 9:54 AM EDT Symptom: Skin Spot Outcome: Schedule an appointment to be seen within 3 days Reason: Caller denied all higher acuity questions The caller accepted this outcome documented in this encounter Plan of Treatment Upcoming Encounters Date Type Department Care Team (Late st Contact Info) Description 03/04/2025 11:15 AM EDT Telemedicine [facility] MED & PEDS [address] [place] [address] Laurel Valdes MD [address] [place] [address] documented as of this encounter Visit Diagnoses Not on filedocumented in this encounter Additional Health Concerns Assessment Noted Time PHQ-9 Depression Total Score: 24 023 9:56 AM EST documented as of this encounter Care Teams Civil Engineering Manager Relationship Specialty Start Date End Date Laurel Valdes MD [address] [place] [phone] PCP - General Family Medicine 11/26/13 documented as of this encounter
--- OUTSIDE RECORDS SUMMARY | 2025-02-17 18:09 | XMS_ITS | Clinical Summary ---
Author Organization [facility] Address [address] [place] [address] Care Team Providers Care Retail Inventory Control Clerk Name Role Phone Unavailable Primary Care Provider Unavailabl e Social History Tobacco Use Types Packs/Day Years Used Date Smoking Tobacco: Never Assessed Sex and Gender Information Value Date Recorded Sex Assigned at Not on file Gender Identity Not on file Sexual Orientation Not on file Plan of Treatment Not on file
== END 2025-02-17 16:37 | disposition home or self-care (01) ==
LOC: HO.HGI 15:33
PROVIDERS: PCP Student in an Organized Health Care Education/Training Program; Visit Provider Internal Medicine
DX: K21.9 Gastro-esophageal reflux disease without esophagitis (principal); E66.01 Morbid (severe) obesity due to excess calories; K76.0 Fatty (change of) liver, not elsewhere classified
CPT/HCPCS: 99214

== ENCOUNTER → 2025-02-17 15:33 | Outpatient (BNVA) | payer MEDICAID, SELFPAY | PROVIDERS: PCP Student in an Organized Health Care Education/Training Program; Visit Provider Internal Medicine ==

== ENCOUNTER 2025-02-22 09:09 | Outpatient (REF) | payer MEDICAID, SELFPAY ==
--- OUTSIDE RECORDS SUMMARY | 2025-02-22 09:58 | XMS_ITS | Clinical Summary ---
Author Organization [facility] Address [address] [place] [address] Care Team Providers Care Registry Np Name Role Phone Unavailable Primary Care Provider Unavailabl e Social History Tobacco Use Types Packs/Day Years Used Date Smoking Tobacco: Never Assessed Sex and Gender Information Value Date Recorded Sex Assigned at Not on file Gender Identity Not on file Sexual Orientation Not on file Plan of Treatment Not on file
--- OUTSIDE RECORDS SUMMARY | 2025-02-22 09:58 | XMS_ITS | Encounter Summary ---
Author Organization [employer] Address [address] [place] [address] [place] [address] Care Team Providers Care Manufactured Buildings Repairer Name Role Phone Laurel Valdes MD Primary Care Provider [phone] Encounter Details Date Type Department Care Team ([facility] Contact Info) Description 11/02/2022 Orders Only [facility] MEDICINE [address] [place], [place] [phone] Laurel Valdes MD [address] [place] [address] GERD without esophagitis Social History Tobacco Use [...] Encounters Date Type Department Care Team (Late Contact Info) Description 03/04/2025 11:15 AM EDT Telemedicine [facility] MED & PEDS 505 [place], [place] [phone] Laurel Valdes MD [address] [place] [address] 04/27/2025 9:30 AM EDT Office Visit [facility] MED & PEDS 505 [place], [place] [phone] Mingo Lara MD [address] [place] [address] documented as of this encounter Visit Diagnoses Diagnosis GERD without esophagitis Esophageal reflux documented in this encounter Care Teams Manufactured Buildings Repairer Relationship Specialty Start Date End Date Laurel Valdes MD [address] [place] [address] PCP - General Family Medicine 11/26/13 documented as of this encounter
--- OUTSIDE RECORDS SUMMARY | 2025-02-22 09:58 | XMS_ITS | Encounter Summary ---
Author Organization [employer] Address [address] [facility] 7 [place] [address] Care Team Providers Care Per Diem Nurse Name Role Phone Laurel Valdes MD Primary Care Provider [phone] Reason for Visit * Reason Onset Date Comments Appointment Request 12/15/2024 Encounter Details Date Type Department Care Team ([facility] st Contact Info) Description 12/15/2024 Telephone [facility] MEDICINE [address] [place] [address] Laurel Valdes MD [address] [place], [place] [phone] Appointment Request Social History Tobacco Use Types [...] feeling well and will like to r/s [phone] documented in this encounter Plan of Treatment Upcoming Encounters Date Type Department Care Team (Late st Contact Info) Description 03/04/2025 11:15 AM EDT Telemedicine [facility] MED & PEDS [address] [place] [address] Laurel Valdes MD 505 [place] [address] 04/27/2025 9:30 AM EDT Office Visit [facility] MED & PEDS 505 [place] [address] Mingo Lara MD 505 [place] [address] documented as of this encounter Visit Diagnoses Not on filedocumented in this encounter Additional Health Concerns Assessment Noted Time PHQ-9 Depression Total Score: 24 023 9:56 AM EST documented as of this encounter Care Teams Per Diem Nurse Relationship Specialty Start Date End Date Laurel Valdes MD [address] [place] [address] PCP - General Family Medicine 11/26/13 documented as of this encounter
--- OUTSIDE RECORDS SUMMARY | 2025-02-22 09:58 | XMS_ITS | Clinical Summary ---
Author Organization [employer] Address [address] [place] [address] 7t [place] [address] Care Team Providers Care Senior Hr Generalist Name Role Phone Laurel Valdes MD Primary Care Provider Allergies No known active allergies Medications * [...] complication, without long-term current use of insulin ([facility]) TEST BLOOD SUGAR TWICE DAILY 50 strip 5 09/02/20 24 Active Blood Glucose Monitoring Suppl (FreeStyle [place] Lite) w/Device kit Use to test blood [...] Department Care Team Description 01/29/2025 Orders Only [facility] MED & PEDS [address] [place] [address] Laurel Valdes MD 01/28/2025 Orders Only [facility] MED [facility]ED[facility] [address] [facility] [place] [address] Laurel Valdes MD 01/27/2025 Telephone [facility] 230 [place] [address] Laurel Valdes MD Med Refill 01/08/2025 Population Health Risk Score [facility] (C3) Department [address] [place] [phone] Provider, Population Health Generic 12/30/2024 9:00 AM EST Telemedicine [facility] MED & PEDS 505 [place] [address] Laurel Valdes MD Type 2 diabetes mellitus with other circulatory complication, without long-term current use of insulin (CMS/HCC) (Primary Dx); Class 2 severe obesity with serious comorbidity and body mass index (BMI) of 35.0 to 35.9 in adult, unspecified obesity type (CMS/HCC) 12/30/2024 Travel 12/29/2024 Travel 12/22/2024 Telephone [facility] [address] [facility] [place] [address] Laurel Valdes MD Med Refill 12/22/2024 Refill [facility] [address] [facility] [place] [address] aLurel Valdes MD 12/17/2024 Telephone [facility]ED[facility] 505 [place] [address] Laurel Valdes MD Appointment Request (Pt needs derm appt) 12/15/2024 Telephone [facility] [address] [place], [place] [phone] Laurel Valdes MD Appointment Request 12/08/2024 3:00 PM EST Telemedicine [facility] 505 [place] [address] Naty Cruz PharmD Type 2 diabetes mellitus without complication, without long-term current use of insulin (CMS/HCC) (Primary Dx); Primary hypertension 11/26/2024 Orders Only [facility]EDS [address] [place] [address] Laurel Valdes MD Type 2 diabetes mellitus without complication, without long-term current use of insulin (CMS/HCC) (Primary Dx) 11/25/2024 Refill [facility]ED[facility] [address] [place] [address] Laurel Valdes MD from Last 3 Months [...] Info) Description 03/04/2025 11:15 AM EDT Telemedicine [facility]EDS [address] [place] [address] Laurel Valdes MD 505 [place] [address] 04/27/2025 9:30 AM EDT Office Visit [facility] 505 [place] [address] Mingo Lara MD 505 [place] [address] Health Maintenance Due Date Last Done Comments [...] 2002 Cervical Cancer Screening 2011 HPV/Cotest 2011 Diabetes: Urine Protein Screening 05/30/2024 05/30/2023 Depression Screening 09/27/2024 09/27/2023, 09/27/20 SDOH Screening 01/20/2025 01/21/2024 Influenza Vaccine (#1) [...] without long-term current use of insulin (CMS/HCC) BI MAMMOGRAM SCREENING TOMOSYNTHESIS BILATERAL Routine 09/07/2024 3:48 PM EST LIPID PANEL, STANDARD Routine 08/04/2024 10:43 AM EDT Type 2 diabetes mellitus without complication, without long-term current use of insulin (CMS/[facility]) ALBUMIN, RANDOM URINE W/CREATININE Routine 05/30/2023 2:12 PM EDT from Last 3 Months or Most Recently Relevant to Health Maintenance Results * POCT HGB A1C (11/12/2024 11:31 AM EST) Hemoglobin A1C 5.7 4.0 - 6.0 % QC Media Lot # [id number] Lot# Expiration Date [id number] Blood 11/12/2024 11:3 1 AM EST Laurel Valdes MD POINT OF CARE TEST ENTER/EDIT OR DERABLES Final Result * BI Mammogram Screening Tomosynthesis Bilateral (09/07/2024 3:48 PM EST) Anatomical Region Laterality Modality Breast Bilateral Mammography 09/07/2024 3:48 PM EST Narrative 09/16/2024 12:11 PM EST ? [facility] ? [address] ?[place], [place] [address] ? Mammography Report ? Signed ? Patient: Gagnon,Hawa ?MR#: [id number] ?? 57 ? : 1980 ?Acct:[id number] ? Age/Sex: 43 / F ?ADM Date: 09/07/24 ? Loc: HO.MAMMO ? Attending Dr: Laurel Valdes MD ? Ordering Physician: Laruel Valdes MD ?Results: 1Negati ?? ve ? Date of Service: 09/07/24 ?Follow Up: 1 Year From Orig ?? inal Mammogram ? Procedure(s): MM tomosynthesis screening BI ?? Accession Number(s): [id number] ? cc: Laurel Valdes MD ? EXAMINATION: [...] ??Elsi Fay DO ??09/16/2024 12:07 PM EST ?? RP ? Dictated By: ?Elsi Fay DO ? Signed By: ?<Electronically signed by Elsi Fay, DO in OV> ? 09/16/24 1207 ? DD/ 1548 ? TD/TT: 09/07/24 1616 ? Automotive Glass Technician: ? Procedure Note Nedra, Image - 09/16/2024 [facility] [address] [place] [address] Mammography Report Signed Patient: Estuardo Gagnon#: [id number] 57 : 1980Acct:[id number] Age/Sex: 43 / FADM Date: 09/07/24 Loc: HO.MAMMO Attending Dr: Laurel Valdes MD Ordering Physician: Laurel Valdes MDResults: 1Negati ve Date of Service: 09/07/24Follow Up: 1 Year From Orig inal Mammogram Procedure(s): MM tomosynthesis screening BI Accession Number(s): [id number] cc: Laurel Valdes MD EXAMINATION: MM SCREENING [...] by: Elsi Fay DO 09/16/2024 12:07 PM [facility] Dictated By: Elsi Fay DO Signed By: <Electronically signed by Elsi Fay DO in OV> 09/16/24 1207 DD/ 1548 TD/TT: 09/07/24 1616 Automotive Glass Technician: Laurel Valdes MD IMG BI PROCEDURES Final Result * (ABNORMAL) Lipid Panel, Standard (08/04/2024 10:43 AM EDT) Triglycerides 179(H) <150 mg/dL [facility] Comment:Desirable Triglyceri de: less than 150 mg/dLBorderline High Triglyceride 150-199 mg/dLHigh Triglyceride: 200-499 mg/dLVery High Triglyceride: greater than or equal to 5OO mg/dL Cholesterol 218(H) <200 mg/dL [facility] Comment:Desirable Cholestero l: less than 200 mg/dLBorderline High Cholesterol: 200-239 mg/dLHigh Cholesterol: greater than 239 mg/dL LDL Cholesterol Calculated 139(H) <100 mg/dL [facility] Comment:Desirable LDL: less than 100 mg/dLNear Optimal/Above Optimal LDL: 110- 129 mg/dLBorderline High LDL: 130-159 mg/dLHigh LDL: 160-189 mg/dLVery High LDL: greater than or equal to 190 mg/dL HDL Cholesterol 44 >40 mg/dL [facility] Comment:Desirable HDL: great er than 40 mg/dL Note: This HDL assay may give artificially low results in patients with liver disease. Blood Venous blood specimen / Unknown 08/04/2024 10:43 AM EDT 08/04/2024 2:00 PM EDT Laurel Valdes MD LAB BLOOD ORDERABLES Final Resul t Performing Organization Address [facility] Co de Phone Number [facility] [address] [place] [phone] * Albumin, Random Urine W/Creatinine (05/30/2023 2:12 PM EDT) Creatinine, Urine 186.86 mg/dL [facility] Microalbumin Urine 304.0 mg/L [facility] Microalbum Creatinine Ratio Ur 162.6 ug/mg cr [facility] Comment:Albumin/Creatinine R atio Reference Ranges: Normal: < 30 ug/mg creatinine Microalbuminuria: 30 - 300 ug/mg creatinineClinical Albuminuria: > 300 ug/mg creatinine 05/30/2023 2:12 PM EDT 05/30/2023 7:33 PM EDT Laurel Valdes MD LAB URINE ORDERABLES Final Resul t Performing Organization Address [facility] Co de Phone Number [facility] [address] [place] [phone] from Last 3 Months or Most Recently Relevant to Health Maintenance [facility] Care Teams Senior Hr Generalist Relationship Specialty Start Date End Date Laurel Valdes MD [address] [place] [address] PCP - General Family Medicine 11/26/13
--- OUTSIDE RECORDS SUMMARY | 2025-02-22 09:58 | XMS_ITS | Encounter Summary ---
Author Organization [employer] Address [address] [place] [address] 7 [place] [address] Care Team Providers Care Automatic Typewriter Inspector Name Role Phone Laurel Valdes MD Primary Care Provider [phone] Reason for Visit * Reason Onset Date Comments Med Refill 09/14/2024 Encounter Details Date Type Department Care Team ([facility] st Contact Info) Description 09/14/2024 Telephone [facility] MED & PEDS 505 [facility] [place] [address] Laurel Valdes MD 505 [place] [address] Med Refill Social History Tobacco Use Types [...] in my list of meds Preferred pharmacy: [facility] [place] - [address] [facility] Delivery method: Pickup documented in this encounter Plan of Treatment Upcoming Encounters Date Type Department Care Team ([facility] st Contact Info) Description 03/04/2025 11:15 AM EDT Telemedicine [facility] MED & PEDS 505 [place] [address] Laurel Valdes MD 505 [place] [address] 04/27/2025 9:30 AM EDT Office Visit [facility] PEDS 505 [place] [address] Mingo Lara MD 505 [place] [address] documented as of this encounter Visit Diagnoses Not on filedocumented in this encounter Additional Health Concerns Assessment Noted Time PHQ-9 Depression Total Score: 24 023 9:56 AM EST documented as of this encounter Care Teams Automatic Typewriter Inspector Relationship Specialty Start Date End Date Laurel Valdes MD [address] [place] [phone] PCP - General Family Medicine 11/26/13 documented as of this encounter
--- OUTSIDE RECORDS SUMMARY | 2025-02-22 09:58 | XMS_ITS | Encounter Summary ---
Author Organization [facility] Address [address] [place] [address] Care Team Providers Care Brim Stitcher Name Role Phone Laurel Valdes MD Primary Care Provider [phone] Encounter Details Date Type Department Care Team (Late st Contact Info) Description 01/17/2023 Orders Only [facility] MED & PEDS [address] [place] [address] Chayo Triana LPN Social History Tobacco Use [...] Info) Description 03/04/2025 11:15 AM EDT Telemedicine [facility] MED & PEDS [address] [place] [address] Laurel Valdes MD 505 [place] [address] 04/27/2025 9:30 AM EDT Office Visit [facility] MED & PEDS [address] [place] [address] Mingo Lara MD 505 [place] [address] documented as of this encounter Visit Diagnoses Not on filedocumented in this encounter Care Teams Brim Stitcher Relationship Specialty Start Date End Date Laurel Valdes MD [address] [place] [address] PCP - General Family Medicine 11/26/13 documented as of this encounter
--- OUTSIDE RECORDS SUMMARY | 2025-02-22 09:58 | XMS_ITS | Encounter Summary ---
Author Organization [employer] Address [address] [place] [address] 7 [place] [address] Care Team Providers Care Neurology Tech Name Role Phone Laurel Valdes MD Primary Care Provider [phone] Reason for Visit * Reason Onset Date Comments Nurse Triage 01/14/2024 Encounter Details Date Type Department Care Team ([facility] st Contact Info) Description 01/14/2024 Telephone [facility] MED & PEDS [address] [place] [address] Laurel Valdes MD 505 [place] [address] Nurse Triage Social History Tobacco Use Types [...] Info) Description 03/04/2025 11:15 AM EDT Telemedicine [facility] MED & PEDS 505 [place] [address] Laurel Valdes MD 505 [place] [address] 04/27/2025 9:30 AM EDT Office Visit [facility] MED & PEDS 505 [place] [address] Mingo Lara MD 505 [place] [address] documented as of this encounter Visit Diagnoses Not on filedocumented in this encounter Additional Health Concerns Assessment Noted Time PHQ-9 Depression Total Score: 24 023 9:56 AM EST documented as of this encounter Care Teams Neurology Tech Relationship Specialty Start Date End Date Laurel Valdes MD [address] [place] [address], [place] [address] PCP - General Family Medicine 11/26/13 documented as of this encounter
--- OUTSIDE RECORDS SUMMARY | 2025-02-22 09:58 | XMS_ITS | Encounter Summary ---
Author Organization [employer] [facility] Address [address] [place] [address] [place] [address] Care Team Providers Care Mechanical Engineering Intern Name Role Phone Laurel Valdes MD Primary Care Provider Encounter Details Date Type Department Care Team (Late st Contact Info) Description 04/08/2023 Orders Only [facility] MEDICINE [address] [place], [place] [phone] Jane Tapia LPN Social History Tobacco Use [...] Info) Description 03/04/2025 11:15 AM EDT Telemedicine [facility] MED & PEDS 505 [place] [address] Laurel Valdes MD 505 [place] [address] 04/27/2025 9:30 AM EDT Office Visit [facility] MED & PEDS 505 [place] [address] Mingo Lara MD 505 [place] [address] documented as of this encounter Visit Diagnoses Not on filedocumented in this encounter Care Teams Mechanical Engineering Intern Relationship Specialty Start Date End Date Laurel Valdes MD [address] [place] [phone] PCP - General Family Medicine 11/26/13 documented as of this encounter
[2025-02-22 14:09] LABS: Hematocrit 39.1 % (37.0-47.0); Hemoglobin 12.9 g/dl (12.0-16.0); Mean Corpuscular Hemoglobin 26.2 pg (27.0-33.0); Mean Corpuscular Volume 79.3 fL (80.0-98.0); Mean Platelet Volume 9.3 fL (9.4-12.3); Platelet Count 474 X10*3/uL (160-400); Red Blood Count 4.93 X10*6/uL (4.20-5.50); Red Cell Distribution Width 13.9 % (11.0-16.0); White Blood Count 9.6 X10*3/uL (4.8-10.8)
[2025-02-22 14:30] LABS: Alanine Aminotransferase 14 U/L (0-31); Albumin Level 4.1 g/dL (3.5-5.0); Alkaline Phosphatase 111 U/L (39-117); Anion Gap 12 (12-20); Aspartate Amino Transferase 20 U/L (5-31); Bilirubin Direct 0.2 mg/dL (0.0-0.5); Bilirubin Total 0.4 mg/dL (0.0-1.0); Blood Urea Nitrogen 16 mg/dL (9-16); Carbon Dioxide 23 mmol/L (22-29); Chloride 109 mmol/L (96-108); Cholesterol 156 mg/dL (<200); Estimated Glomerular Filt Rate > 60; Glucose Random 104 mg/dL (60-115); HDL Cholesterol 45 mg/dL (>40); LDL Cholesterol Calculated 86 mg/dL (<100); Potassium 3.5 mmol/L (3.3-5.1); Sodium 140 mmol/L (135-145); Total Protein 7.1 g/dL (6.5-8.0); Triglycerides 128 mg/dL (<150)
[2025-02-22 14:47] LABS: Creatinine Urine 179.73 mg/dL; Microalbum/Creatinine Ratio Ur 17.8 ug/mg cr (<30)
== END 2025-02-22 09:10 | disposition home or self-care (01) ==
LOC: HO.CHCLDS 09:09
PROVIDERS: Student in an Organized Health Care Education/Training Program; Visit Provider Internal Medicine
DX: K76.0 Fatty (change of) liver, not elsewhere classified (principal); E11.9 Type 2 diabetes mellitus without complications; I10 Essential (primary) hypertension
CPT/HCPCS: 36415; 80048; 80061; 80076; 82043; 82570; 85027

== ENCOUNTER → 2025-04-05 13:53 | Outpatient (BNV) | payer MEDICAID, SELFPAY | PROVIDERS: PCP Student in an Organized Health Care Education/Training Program; Referring Provider Student in an Organized Health Care Education/Training Program; Visit Provider Internal Medicine | DX: D75.839 Thrombocytosis, unspecified (principal) | CPT/HCPCS: 99204 ==

== ENCOUNTER 2025-05-21 09:49 | Outpatient (REF) | payer MEDICAID, SELFPAY ==
--- NOTE | ~2025-05-21 | FL_ITS ---
EXAMINATION: XR BARIUM SWALLOW CLINICAL INFORMATION: Gastroesophageal reflux disease without esophagitis COMPARISON: None available. TECHNIQUE: Upright barium swallow was performed with thick barium and barium coated saltine crackers. Thin barium was administered in prone lying position. FINDINGS: Following oral administration of thick barium and barium coated saltine crackers in upright view there is normal propagation of bolus from the oral cavity through the pharynx, esophagus into stomach. No laryngeal penetration and aspiration seen. No extrinsic compression. On oral administration of saltine crackers coated with barium there is normal oral mastication and propagation of bolus from the oral cavity through the pharynx, esophagus into stomach On placing patient prone lying and oral administration of thin barium there is normal distention of esophagus. No laryngeal penetration or aspiration. No retention of barium in the valleculae or piriform sinuses. On placing patient supine there is small hiatal hernia with moderate size gastroesophageal reflux. FLUOROSCOPY TIME: 2 minutes 20 seconds DOSE AREA PRODUCT: 1767 uGy-m2 (microgray-meter squared) FL/FL barium swallow IMPRESSION: Small hiatal hernia with moderate gastroesophageal reflux. Electronically signed by: Teofilo Santana MD 05/21/2025 12:28 PM EDT
--- OUTSIDE RECORDS SUMMARY | 2025-05-21 10:04 | XMS_ITS | Encounter Summary ---
Author Organization [employer] Address [address] [place] [address] 7 [place] [address] Care Team Providers Care Cargo Supervisor Name Role Phone Laurel Valdes MD Primary Care Provider [phone] Encounter Details Date Type Department Care Team ([facility] st Contact Info) Description 11/02/2022 Orders Only [facility] MEDICINE [address] [place] [address] Laurel Valdes MD 505 [place] [address] GERD without esophagitis Social History Tobacco Use [...] as of this encounter Plan of Treatment Not on file documented as of this encounter Visit Diagnoses Diagnosis GERD without esophagitis Esophageal reflux documented in this encounter Care Teams Cargo Supervisor Relationship Specialty Start Date End Date Laurel Valdes MD [address] [place] [address] PCP - General Family Medicine 11/26/13 documented as of this encounter
--- OUTSIDE RECORDS SUMMARY | 2025-05-21 10:04 | XMS_ITS | Clinical Summary ---
Author Organization [facility] Address [address] [place] [address] Care Team Providers Care Bricklayer Paving Brick Name Role Phone Unavailable Primary Care Provider Unavailabl e Social History Tobacco Use Types Packs/Day Years Used Date Smoking Tobacco: Never Assessed Sex and Gender Information Value Date Recorded Sex Assigned at Not on file Gender Identity Not on file Sexual Orientation Not on file Plan of Treatment Not on file
== END 2025-05-21 09:50 | disposition home or self-care (01) ==
LOC: HO.XRAY 09:49
PROVIDERS: PCP Student in an Organized Health Care Education/Training Program; Visit Provider Internal Medicine
DX: K21.9 Gastro-esophageal reflux disease without esophagitis (principal)
CPT/HCPCS: 74220

== ENCOUNTER → 2025-05-21 09:51 | Outpatient (BNV) | payer MEDICAID, SELFPAY | PROVIDERS: PCP Student in an Organized Health Care Education/Training Program; Visit Provider Radiology Diagnostic Radiology | DX: K21.9 Gastro-esophageal reflux disease without esophagitis (principal); K44.9 Diaphragmatic hernia without obstruction or gangrene | CPT/HCPCS: 74240 ==

== ENCOUNTER 2025-08-04 13:38 | Outpatient (AMB) | payer MEDICAID, SELFPAY ==
--- NOTE | 2025-08-04 13:38 | A.OFFVIS_ITS ---
Intake Visit Reasons: fatty liver Intake Note: Hawa presents as a follow up for fatty liver. states that she is not having any concerns at this time. Real Estate Appraiser Supervisor Required: No Allergies No Known Allergies (No Known Allergies*) Allergy (Verified 08/04/25 13:38) HPI Comments Details: This is a 41-year-old female with past medical history of type 2 diabetes, hypertension, 7 months , who presents to the office for follow-up of change in bowel movements. Initial visit 07/2022: History was obtained from the patient, who states that for the past 6 months she has been having loose watery diarrhea which is associated with severe abdominal pain and nausea. She states that she is going up to 8-10 times a day to the bathroom to pass nonbloody watery bowel movements. There urge to defecate triggers severe lower abdominal pain that progressively gets worse as she is passing the bowel movement and goes away within an hour of having a BM. While she is on the toilet, she ends up spending upwards of 20-30 minutes due to the pain. The pain is so severe that it makes her nauseous sometimes. Denies any vomiting, changes in appetite, fevers. No unintentional weight loss. She does note occasional rectal bleeding on wiping. Had 1 episode 2 weeks ago, where she had persistent rectal bleeding with each bowel movement for 6 days. Therapy so far includes dicyclomine, which she does not think has helped. No family history of colon cancer in first-degree relative. Sister has history of Crohn's disease. Has gallbladder in Situ. Patient has never had a colonoscopy. 09/10/22: Reports another episode of worsening rectal pressure and pain 2 weeks ago. At that time also had bleeding with passage of stool. She was seen in the urgent care, and prescribed hydrocortisone for hemorrhoidal bleeding. Has not taken it yet. Reports no change in her frequency of bowel movements. However, the bowel movements are not as watery as before. Avoiding to spend time on the bathroom. No unintentional weight loss. Of note, continues to carry her baby who weighs 26 lb. She also reports other pelvic floor symptoms including urge and stress urinary incontinence. 12/12/22: Colonoscopy results reviewed patient was reassured evidence of infectious, or neoplastic process to explain diarrhea. Microscopic colitis ruled out as well on biopsy. MRI results were also reviewed, and patient is aware that she is due for another MRI next year with [facility]. In terms of her diarrhea, continues with soft stools 2 to 3 times a day. Main issue is urgency right after eating. Seeing a pelvic floor therapist next month. 01/01/24: Booked as a tele visit as per her preference. Reports no abdominal cramping, bowel movements are regular. Reports significant ongoing mental health issues, for which she is actively seeing a therapist as well as a psychiatrist these days. Aware of her fatty liver disease, but has not been able to work on risk factor modification just yet. MRI results reviewed with the patient, she was reassured that these are benign lesions that do not need follow-up. 02/17/25: Here for routine follow up on a televisit - missed 06/2024 appt as was feeling ok. Was perv on wegovy and now zepbound. Unable to taper down omeprazole but aware could be due to med side effect and delayed gastric emptying leading to higher risk of reflux. Has lost > 30 lbs! Also had IUD placed last year and has been noticing lower abd /pelvic cramping along with spotting. OBgyn is aware. 08/04/25: Here for q6m follow up. Weighs 194 lbs - Weight down by 50lbs total. On Mounjaro. Fib 4 0.54 No acute abd complaints. Results of barium swallow reviewed. Minimal sx burden and small HH. Will defer EGD for now. [facility] Medical History Abnormal glucose complicating Bipolar depression History of depression History of anxiety Hypertension Asthma GERD (gastroesophageal reflux disease) Surgical History Hx of colonoscopy Hx of tooth extraction Hx of tonsillectomy Family History Father Diabetes mellitus Asthma Mother Hypertension Asthma History of depression Social History Household Members: Children Are you a primary restorative care technician to a significant other at home: Yes (children, will be there also for childcare) Do you presently have visiting nurse or other home services: No Alcohol intake: current Alcohol intake frequency: holidays/special occasions only Patient Tobacco Use Status: Former Tobacco user Tobacco use type: Cigarette service: No Current occupational status: disabled Sexual orientation: Straight/Heterosexual Review of Systems Const All systems reviewed & are unremarkable except as noted in HPI and below Physical Exam Exam Exam: Video visit: No acute distress No icterus noted No facial asymmetry Speaking in full sentences Assessment & Plan Assessment & Plan (1) GERD (gastroesophageal reflux disease): Code(s): K21.9 - Gastro-esophageal reflux disease without esophagitis Category: Medical (2) Obesity, Class III, BMI 40-49.9 (morbid obesity): Code(s): E66.01 - Morbid (severe) obesity due to excess calories Category: Medical (3) Fatty liver: Code(s): K76.0 - Fatty (change of) liver, not elsewhere classified Category: Medical Plan 1. GERD Improved with weight loss and PPI therapy. HH is small. Cont omeprazole 20. Can taper down to 10 mg if tolerated. No red flags to warrant emergent EGD at this time. 2. Fatty liver Has lost > 50 lbs! Congratulated on progress. Based on fib 4 score of 0.54 and absence of other risk factors (such as uncontrolled T2DM, age >50, BMI >50,) patient falls under low risk for progression, and therefore this time is being discharged back to PCP's care for obesity management and prevention of cardiovascular disease. 3. CRC screening No adenoma on colo 2022. Next colo due 2032. PRN follow up. Coding Level of Care Code Tele Est Pt Level 4 (20519) Complex EM visit Add On G2211 Diagnoses GERD (gastroesophageal reflux disease) K21.9 Obesity, Class III, BMI 40-49.9 (morbid obesity) E66.01 Fatty liver K76.0
== END 2025-08-04 15:17 | disposition home or self-care (01) ==
LOC: HO.HGI 13:38
PROVIDERS: PCP Student in an Organized Health Care Education/Training Program; Visit Provider Internal Medicine
DX: K21.9 Gastro-esophageal reflux disease without esophagitis (principal); E66.01 Morbid (severe) obesity due to excess calories; K76.0 Fatty (change of) liver, not elsewhere classified
CPT/HCPCS: 99214

== ENCOUNTER → 2025-08-04 13:38 | Outpatient (BNVA) | payer MEDICAID, SELFPAY | PROVIDERS: PCP Student in an Organized Health Care Education/Training Program; Visit Provider Internal Medicine | DX: K76.0 Fatty (change of) liver, not elsewhere classified (principal); K21.9 Gastro-esophageal reflux disease without esophagitis; E66.01 Morbid (severe) obesity due to excess calories | CPT/HCPCS: 99212 ==

== ENCOUNTER 2025-08-26 08:49 | Outpatient (REF) | payer MEDICAID, SELFPAY ==
--- OUTSIDE RECORDS SUMMARY | 2025-08-23 11:30 | XMS_ITS | Encounter Summary ---
Author Organization [employer] Address [address] [place] [address] 7 [place] [address] Care Team Providers Care Farmer General Name Role Phone Laurel Valdes MD Primary Care Provider [phone] Encounter Details Date Type Department Care Team ([facility] st Contact Info) Description 08/23/2025 11:30 AM EDT Telemedicine [facility] MED & PEDS [address] [place] [address] Laurel Valdes MD [address] [place] [address] Primary hypertension (Primary Dx); Type 2 diabetes mellitus with other circulatory complication, without long-term current use of insulin (HCC); Gastroesophageal reflux disease without esophagitis; Class 1 obesity with serious comorbidity and body mass index (BMI) of 34.0 to 34.9 in adult, unspecified obesity type Social History Tobacco Use Types Packs/Day Years Used Date Smoking Tobacco: Never Smokeless Tobacco: Never Depression Answer Date Recorded Patient Health Questionnaire-9 Score 9 05/06/2025 Patient Health Questionnaire-9 Score 9 05/06/2025 Last PHQ-9: Questionnaire Data Not on file 0 05/06/2025 Housing Stability Answer Date Recorded What is [...] Answer Date Recorded Patient Health Questionnaire-2 Score 2 05/06/2025 Internet Access Answer Date Recorded Internet Access Q1 Yes 11/02/2024 Internet Access Q2 Not on file 11/02/2024 Comments No Sex and Gender Information Value Date Recorded Sex Assigned at Female 08/27/2022 10:17 AM EDT Legal Sex Female 10:17 AM EDT Gender Identity Female 08/27/2022 10:17 AM EDT Sexual Orientation Choose not to disclose 2021 10:17 AM EDT documented as of this encounter Progress Notes * Laurel Valdes MD - 08/23/2025 11:30 AM EDT Subjective Patient ID: Hawa Gagnon is a 44 y.o. female who presents for No chief complaint on file.. Hypertension This is a chronic problem. The current episode started more than 1 year ago. The problem is unchanged. The problem is controlled. Pertinent negatives include no chest pain, headaches, neck pain, palpitations or shortness of breath. Risk factors for coronary artery disease include family history, sedentary lifestyle and obesity. Review of Systems Constitutional: Negative. Respiratory: Negative. Negative for shortness of breath. Cardiovascular: Negative for chest pain and palpitations. Gastrointestinal: Negative. Genitourinary: Negative. Musculoskeletal: Negative for neck pain. Neurological: Negative for headaches. Objective Physical Exam Psychiatric: Mood and Affect: Mood normal. Behavior: Behavior normal. Thought Content: Thought content normal. Judgment: Judgment normal. Assessment/Plan Diagnoses and all orders for this visit: Primary hypertension Comments: Stable New BP monitor sent Maintain a low-sodium diet (less than 2 grams per day). Maintain a regular cardiovascular exercise program. Advised to maintain a low-fat, low-cholesterol diet. Counseled regarding importance of weight loss. Counseled re: potential co-morbidities including cardiovascular disease. Type 2 diabetes mellitus with other circulatory complication, without long-term current use of insulin ([facility]) Comments: Stable No changes in meds Advised Low sugar and Low carb diet. Counseled regarding self-monitoring of blood glucose. Counseled re: potential co-morbidities including cardiovascular disease. Counseled re: potential co-morbidities include neuropathy and retinopathy. Counseled re: potential co-morbidities include nephropathy. Gastroesophageal reflux disease without esophagitis Comments: Stable on Omeprazole Avoid provocative foods: citrus, alcohol, coffee, chocolate, mints. Eat smaller meals, no eating three hours prior to bedtime. Class 1 obesity with serious comorbidity and body mass index (BMI) of 34.0 to 34.9 in adult, unspecified obesity type Comments: Zepbound increased to 7.5mg Patient currently on pharmacotherapy to assist with management of her weight. Starting weight: 235 lb Current weight: 1983lbs Review continue lifestyle modifications. Patient was titrated up to treatment dose. Tolerated titration well. Patient was transitioned to Zepbound given change in preferred agent by patient???s insurance and medication efficacy. Reviewed mechanism of action with patient. Discussed side effects with patient: nausea, vomiting, diarrhea & risk of pancreatitis. No contraindications identified: , hx of pancreatitis, hx of medullary thyroid cancer or MEN 2. Discussed calorie deficit, recommended reduction of 20-30% of maintenance calories; city bailiff referral offered. Recommended to decrease soda and sugary beverage consumption. Recommended at least 20 g per meal of protein to assist with satiety. Recommended at least 150 min/week of moderate intensity exercise. Other orders - atorvastatin (Lipitor) 10 MG tablet; Take 1 tablet (10 mg) by mouth Once per day. - Blood Pressure kit; Check blood pressure daily - Tirzepatide-Weight Management (Zepbound) 7.5 MG/0.5ML solution auto-injector; Inject 0.5 mL (7.5 mg) under the skin 1 (one) time per week. documented in this encounter Plan of Treatment Upcoming Encounters Date Type Department Care Team (Late st Contact Info) Description 09/14/2025 9:45 AM EST Office Visit [facility] MED & PEDS [address] [place] [address] Eleno Craft MD [address] [place] [address] documented as of this encounter Visit Diagnoses Diagnosis Primary hypertension- Primary Unspecified essential hypertension Type 2 diabetes mellitus with other circulatory complication, without long-term current use of insulin (HCC) Gastroesophageal reflux disease without esophagitis Esophageal reflux Class 1 obesity with serious comorbidity and body mass index (BMI) of 34.0 to 34.9 in adult, unspecified obesity type documented in this encounter Additional Health Concerns Assessment Noted Time PHQ-9 Depression Total Score: 9 05/06/20 25 2:17 PM EDT documented as of this encounter Care Teams Farmer General Relationship Specialty Start Date End Date Laurel Valdes MD [address] [place] [address] PCP - General Family Medicine 11/26/13 08/24/25 documented as of this encounter
--- OUTSIDE RECORDS SUMMARY | 2025-08-26 09:44 | XMS_ITS | Encounter Summary ---
Author Organization [employer] Address [address] [place] [address] Care Team Providers Care Asphalt Plant Worker Name Role Phone Laurel Valdes MD Primary Care Provider [phone] Eleno Craft MD Primary Care Prov ider Encounter Details Date Type Department Care Team (Late st Contact Info) Description 04/08/2023 Orders Only [facility] MEDICINE [address] [place] [address] Jane Tapia LPN Social History Tobacco Use [...] Description 09/14/2025 9:45 AM EST Office Visit [facility] MED & PEDS [address] [place], [place] [phone] Eleno Craft MD [address] [place], [place] [phone] documented as of this encounter Visit Diagnoses Not on filedocumented in this encounter Care Teams Asphalt Plant Worker Relationship Specialty Start Date End Date Laurel Valdes MD [address] [place] [address] PCP - General Family Medicine 11/26/13 08/24/25 Eleno Craft MD [address] [place] [address] PCP - General Internal Medicine 08/25/25 documented as of this encounter
--- OUTSIDE RECORDS SUMMARY | 2025-08-26 09:44 | XMS_ITS | Encounter Summary ---
Author Organization [employer] Address [address] [place] [address] [place] [address] Care Team Providers Care Personal Care Home Administrator Name Role Phone Laurel Valdes MD Primary Care Provider [phone] Eleno Craft MD Primary Care Prov ider Reason for Visit * Reason Onset Date Comments Nurse Triage 01/14/2024 Encounter Details Date Type Department Care Team ([facility] st Contact Info) Description 01/14/2024 Telephone [facility] MED & PEDS [address] [place] [address] Laurel Valdes MD [address] [place] [address] Nurse Triage Social History Tobacco Use Types [...] Description 09/14/2025 9:45 AM EST Office Visit [facility] MED & PEDS [address] [place] [address] Eleno Craft MD [address] [place] [address] documented as of this encounter Visit Diagnoses Not on filedocumented in this encounter Additional Health Concerns Assessment Noted Time PHQ-9 Depression Total Score: 24 023 9:56 AM EST documented as of this encounter Care Teams Personal Care Home Administrator Relationship Specialty Start Date End Date Laurel Valdes MD [address] [place] [address] PCP - General Family Medicine 11/26/13 08/24/25 Eleno Craft MD [address] [place] [address] PCP - General Internal Medicine 08/25/25 documented as of this encounter
--- OUTSIDE RECORDS SUMMARY | 2025-08-26 09:44 | XMS_ITS | Encounter Summary ---
Author Organization [employer] Address [address] [place] [address] 7 [place] [address] Care Team Providers Care Pool Cleaner Name Role Phone Laurel Valdes MD Primary Care Provider [phone] Eleno Craft MD Primary Care Prov ider Reason for Visit * Reason Onset Date Comments Prior Auth Prescription 03/09/2025 Encounter Details Date Type Department Care Team ([facility] st Contact Info) Description 03/09/[address] [facility] MEDICINE [address] [place] [address] Laurel Valdes MD [address] [place], [place] [phone] Prior Auth Prescription Social History Tobacco Use Types Packs/Day Years [...] Telephone Encounter - Laurel Valdes MD - 03/11/2025 8:58 AM EDT sent * Telephone Encounter - Wing Puja RN - 03/10/2025 10:40 AM EDT Tc to pt regarding message below. Spoke to BROOKE Krishnamurthy and PCP. Prior authorization to be complete within 24-72 hours. Explained to pt that she was to be on this dose for three months. Made pt appt with PCP on 05/11 at 9:15 am. Pt also request to be switched to Zyrtec. States Claritin is not working. Was prescribed by PCP on 03/13/24. Message to be relayed to PCP. Pt verbalized understanding and agreement with plan. * Telephone Encounter - Edith Martinez - 03/09/2025 11:33 AM EDT Tc from pt notifying pt hasn't received medication Zepbound due to needing a PA and is needed as she called over a week ago. documented in this encounter Plan of Treatment Upcoming Encounters Date Type Department Care Team (Late st Contact Info) Description 09/14/2025 9:45 AM EST Office Visit [facility] MED & PEDS [address] [place] [address] Eleno Craft MD [address] [place] [address] documented as of this encounter Visit Diagnoses Not on filedocumented in this encounter Additional Health Concerns Assessment Noted Time PHQ-9 Depression Total Score: 24 023 9:56 AM EST documented as of this encounter Care Teams Pool Cleaner Relationship Specialty Start Date End Date Laurel Valdes MD [address] [place] [address] PCP - General Family Medicine 11/26/13 08/24/25 Eleno Craft MD [address] [place] [address] PCP - General Internal Medicine 08/25/25 documented as of this encounter
--- OUTSIDE RECORDS SUMMARY | 2025-08-26 09:44 | XMS_ITS | Encounter Summary ---
Author Organization [employer] Address [address] [place] [address] [address] [place] [address] Care Team Providers Care Receiving Worker Name Role Phone Laurel Valdes MD Primary Care Provider [phone] Eleno Craft MD Primary Care Prov ider Reason for Visit * Reason Onset Date Comments Med Refill 09/14/2024 Encounter Details Date Type Department Care Team ([facility] st Contact Info) Description 09/14/2024 Telephone [facility] MED & PEDS [address] [place] [address] Laurel Valdes MD [address] [place] [address] Med Refill Social History Tobacco Use Types [...] in my list of meds Preferred pharmacy: [facility] [place] - [address] [facility] Delivery method: Pickup documented in this encounter Plan of Treatment Upcoming Encounters Date Type Department Care Team ([facility] st Contact Info) Description 09/14/2025 9:45 AM EST Office Visit [facility] MED & PEDS [address] [place] [address] Eleno Craft MD [address] [place] [address] documented as of this encounter Visit Diagnoses Not on filedocumented in this encounter Additional Health Concerns Assessment Noted Time PHQ-9 Depression Total Score: 24 023 9:56 AM EST documented as of this encounter Care Teams Receiving Worker Relationship Specialty Start Date End Date Laurel Valdes MD [address] [place] [id number] PCP - General Family Medicine 11/26/13 08/24/25 HubbardEleno Luna MD [address] [place] [address] PCP - General Internal Medicine 08/25/25 documented as of this encounter
--- OUTSIDE RECORDS SUMMARY | 2025-08-26 09:44 | XMS_ITS | Encounter Summary ---
Author Organization [employer] Address [address] [place] [address] Care Team Providers Care Toggle Press Folder And Feeder Name Role Phone Laurel Valdes MD Primary Care Provider [phone] Eleno Craft MD Primary Care Prov ider Encounter Details Date Type Department Care Team (Late Contact Info) Description 01/17/2023 Orders Only [facility] MED & PEDS [address] [place] [address] Chayo Triana LPN Social History Tobacco Use [...] Department Care Team (Late Contact Info) Description 09/14/2025 9:45 AM EST Office Visit [facility] MED & PEDS [address] [place], [place] [phone] Eleno Craft MD [address] [place], [place] [phone] documented as of this encounter Visit Diagnoses Not on filedocumented in this encounter Care Teams Toggle Press Folder And Feeder Relationship Specialty Start Date End Date Laurel Valdes MD [address] [place] [address] PCP - General Family Medicine 11/26/13 08/24/25 Eleno Craft MD [address] [place] [address] ALBERT Chan [address] PCP - General Internal Medicine 08/25/25 documented as of this encounter
--- OUTSIDE RECORDS SUMMARY | 2025-08-26 09:44 | XMS_ITS | Clinical Summary ---
Author Organization [employer] Address [address] [place] [address] 7 [place] [address] Care Team Providers Care Propulsion Motor And Generator Repairer Name Role Phone Eleno Craft MD Primary Care Prov ider Allergies No known active allergies Medications * This document contains information received from the source organization and may not represent a complete record from that organization. fluticasone (Flonase) 50 MCG/ACT nasal spray INSERT TWO SPRAYS IN EACH NOSTRIL ONCE DAILY 48 g 023 Active triamcinolone (Kenalog) 0.1 % cream Apply topically if needed in the morning and at bedtime (pain and swelling). 30 g 2 024 Active Easy Touch Lancets 33G/Twist misc Use 1 tab BID 100 each 11 024 Active minoxidil (Loniten) 2.5 MG tabletIndicati ons:Androgenet ic alopecia Take 1 tablet (2.5 mg) by mouth Once per day. 30 tablet 11 024 Active clobetasol (Temovate) 0.05 % ointmentIndica tions:Hx of nummular eczema APPLY TOPICALLY TO THE AFFECTED AREA TWICE DAILY 15 g 024 Active hydrOXYzine HCl (Atarax) 25 MG tablet Take 25 mg by mouth if needed in the morning, at noon, in the evening, and at bedtime. 024 Active Multiple Vitamin (Multivitamin) tablet Take 1 tablet by mouth Once per day. 024 Active omeprazole (PriLOSEC) [address] capsule Take 40 mg by mouth Once per day. Active Blood Glucose Monitoring Suppl (FreeStyle Edcouch Lite) w/Device kit Use to test blood sugar 2 times daily 1 kit Active lamoTRIgine (LaMICtal) 200 MG tablet Take 1 tablet by mouth in the morning. Active Vitamins-Lipot ropics (B Complex Formula 1, Lipotrop,) tablet Take 1 tablet by mouth in the morning. Active metFORMIN (Glucophage) 500 MG tablet Take 1 tablet (500 mg) by mouth Once per day. 90 tablet 3 Active docusate sodium (Colace) 100 MG capsule TAKE 1 CAPSULE BY MOUTH TWICE A DAY 180 capsule Active cetirizine (ZyrTEC) 10 MG tablet Take 1 tablet (10 mg) by mouth Once per day. 30 tablet 5 025 2024 Active hydroCHLOROthi azide (HYDRODiuril) 25 MG tabletIndicati ons:Hypertensi on, unspecified type TAKE 1 TABLET BY MOUTH EVERY MORNING 90 tablet 1 Active loratadine (Claritin) 10 MG tablet TAKE ONE TABLET EVERY MORNING 90 tablet 1 Active minoxidil (Loniten) 2.5 MG tabletIndicati ons:Androgenet ic alopecia Take 2 tablets (5 mg) by mouth Once per day. 60 tablet 11 025 2025 Active FREESTYLE LITE test stripIndicatio ns:Type 2 diabetes mellitus without complication, without long-term current use of insulin ([facility]) TEST BLOOD SUGAR TWICE DAILY 50 strip 5 025 Active amLODIPine (Norvasc) 10 MG tablet TAKE ONE TABLET DAILY 90 tablet 1 025 Active albuterol (Ventolin HFA) 108 (90 Base) MCG/ACT inhaler INHALE TWO PUFFS EVERY 4 TO 6 HOURS NEEDED 18 g 2 Active ondansetron (Zofran) 4 MG tabletIndicati ons:Cannabis dependence, continuous (CMS/HCC) ([facility]) TAKE ONE TABLET EVERY 8 HOURS NEEDED FOR NAUSEA AND VOMITING 30 tablet 025 Active atorvastatin (Lipitor) 10 MG tablet Take 1 tablet (10 mg) by mouth Once per day. 30 tablet 11 025 2025 Active Blood Pressure kit Check blood pressure daily 1 kit Active Tirzepatide-We ight Management (Zepbound) 7.5 MG/0.5ML solution auto-injector Inject 0.5 mL (7.5 mg) under the skin 1 (one) time per week. 2 mL 3 Active atorvastatin (Lipitor) 10 MG tablet Take 1 tablet (10 mg) by mouth Once per day. 30 tablet 11 024 2024 Discontinued(R eorder (will not trigger notification to Pharmacy)) albuterol (Ventolin HFA) 108 (90 Base) MCG/ACT inhaler INHALE TWO PUFFS EVERY 4 TO 6 HOURS NEEDED 18 g 2 025 2024 Discontinued(R eorder (will not trigger notification to Pharmacy)) ondansetron (Zofran) 4 MG tablet TAKE ONE TABLET EVERY 8 HOURS NEEDED FOR NAUSEA AND VOMITING 30 tablet 025 2024 Discontinued(R eorder (will not trigger notification to Pharmacy)) Tirzepatide (Mounjaro) 2.5 MG/0.5ML solution auto-injector Inject 2.5 mg under the skin 1 (one) time per week. Start 2.5 mg weekly x 4 weeks, then increase to 5 mg weekly x 4 weeks, then 7.5 mg weekly 2 mL 025 2024 Tirzepatide (Mounjaro) 5 MG/0.5ML solution auto-injector Inject 5 mg under the skin 1 (one) time per week. INJECT ONE PEN (=5 MG) SUBCUTANEOUSLY ONCE A WEEK 2 mL 025 2024 Discontinued Tirzepatide-We ight Management (Zepbound) 7.5 MG/0.5ML solution auto-injector Inject 0.5 mL (7.5 mg) under the skin 1 (one) time per week. 2 mL 025 2024 Discontinued(R eorder (will not trigger notification to Pharmacy)) Active Problems Problem Noted Date Diagnosed Date Cannabis dependence, continuous (CMS/HCC) 2024 SURESH (generalized anxiety disorder) 09/27/2023 Bipolar I disorder, current episode depressed (C MS/HCC) 02/07/2023 Depressive disorder 02/07/2023 Diabetes mellitus 02/07/2023 Gastroesophageal reflux disease 02/07/2023 Hypertension 02/07/2023 Asthma 04/15/2014 Encounters * This document contains information received from the source organization and may not represent a complete record from that organization. Date Type Department Care Team Description 08/23/2025 11:30 AM EDT Telemedicine [facility] [address] [place] [address] Lauerl Valdes MD Primary hypertension (Primary Dx); Type 2 diabetes mellitus with other circulatory complication, without long-term current use of insulin (HCC); Gastroesophageal reflux disease without esophagitis; Class 1 obesity with serious comorbidity and body mass index (BMI) of 34.0 to 34.9 in adult, unspecified obesity type 08/23/2025 Travel 08/20/2025 Telephone [facility] [address] [place] [address] Laurel Valdes MD Chart prep 08/02/2025 Refill [facility] [address] [place] [address] Makeda Allen FNP Cannabis dependence, continuous (CMS/HCC) (HCC) 08/02/2025 Refill [facility] [address] [place] [address] Laurel Valdes MD 08/02/2025 Refill [facility] [address] [place] [address] Laurel Valdes MD 06/30/2025 Orders Only [facility] [address] [place] [address] Laurel Valdes MD 06/29/2025 Telephone [facility] [address] [place] [address] Laurel Valdes MD Medication Question 06/25/2025 Telephone [facility] [address] [place] [address] Laurel Valdes MD Referral 06/24/2025 Refill [facility] PED[facility] [address] [place] [address] Eleno Craft MD 06/17/2025 Telephone [facility] [address] [place] [address] Laurel Valdes MD Referral 06/10/2025 Refill [facility] [address] [place] [address] Laurel Valdes MD Type 2 diabetes mellitus without complication, without long-term current use of insulin ([facility]) 06/07/2025 7:00 PM EDT Office Visit [facility] [address] [place] [address] Mingo Lara MD Ganglion cyst of left foot (Primary Dx) 06/07/2025 Travel 06/07/2025 Telephone [facility] [address] [place], [place] [phone] Laurel Valdes MD Nurse Triage from Last 3 Months Immunizations Immunization Administration Dates Next Due Hep B, Adolescent [...] Sign Reading Time Taken Comments Blood Pressure 128/74 06/07/2025 6:56 PM EDT Pulse 72 06/07/2025 6:56 PM EDT Temperature 36.9 C (98.4 F) 06/07/2025 6:56 PM EDT Respiratory Rate 16 06/07/2025 6:56 PM EDT Oxygen Saturation 98% 04/27/2025 9:32 AM EDT Inhaled Oxygen Concentration - - Weight 84.3 kg (185 lb 12.8 oz) 06/07/2025 6:56 PM EDT Height 157.5 cm (5' 2 ) 06/07/2025 6:56 PM EDT Body Mass Index 33.98 06/07/2025 6:56 PM EDT Plan of Treatment Upcoming Encounters Date Type Department Care Team (Late st Contact Info) Description 09/14/2025 9:45 AM EST Office Visit [facility] [address] [place] [address] Eleno Craft MD [address] [place] [address] Health Maintenance Due Date Last Done Comments HIV Screening 1981 Eye Exam 1991 Alcohol/Substance Use Screening 1993 Family Planning (PISQ) 1996 HPV Vaccines (1 - 3-dose series) 1996 Hepatitis C Screening 1999 Hepatitis B Vaccines (1 of 3 - 19+ 3-dose series) 2000 03/08/2004, 12/27/2003, 11/26/2003 Pneumococcal Vaccine: Pediatrics (0 to 5 Years) and At-Risk Patients (6 to 49) Years (1 of 2 - PCV) 2000 SDOH Screening 01/20/2025 01/21/2024 Diabetes: Hemoglobin A1C 05/12/2025 025, 08/04/2024, 01/21/2024, Additional history exists COVID-19 Vaccine ( season) 2025 04/17/2021, 03/24/2021 Influenza Vaccine (#1) 2025 10/05/2015 Diabetes: Foot Exam 08/13/2025 08/13/2024, 08/13/2024, 08/13/2024, Additional history exists Mammogram 09/07/2025 09/07/2024, 09/06/2023 Depression Monitoring 11/06/2025 05/06/2025, 025 Disability Screening 12/29/2025 12/29/2024 Diabetes: Urine Protein Screening 02/22/2026 02/22/2025, 05/30/2023 Lipid Panel 02/22/2026 02/22/2025, 10/0 05/2024, 05/30/2023 Tobacco Screening 04/27/2026 04/27/2025 Cervical Cancer Screening 06/23/2026 HPV/Cotest 06/23/2026 06/23/2021 Pap Smear 06/23/2026 06/23/2021 Zoster Vaccines (1 of 2) 2031 DTaP/Tdap/Td [...] patient's age to complete this topic Meningococcal B Vaccine Aged Out No l onger eligible based on patient's age to complete [...] Procedure Name Priority Date/Time Associated Diagnosis Comments AMB REFERRAL TO ORTHOPAEDIC SURGERY Routine 07/11/2025 Ganglion cyst of left foot ALBUMIN, RANDOM URINE W/CREATININE Routine 02/22/2025 9:22 AM EDT LIPID PANEL, STANDARD Routine 02/22/2025 9:10 AM EDT Type 2 diabetes mellitus without complication, without long-term current use of insulin ([facility]) Primary hypertension POCT GLYCATED HEMOGLOBIN, TOTAL Routine 11/12/2024 11:31 AM EST Type 2 diabetes mellitus without complication, without long-term current use of insulin ([facility]) BI MAMMOGRAM SCREENING TOMOSYNTHESIS BILATERAL Routine 09/07/2024 3:48 PM EST HM PAP/HPV Routine 06/23/2021 from Last 3 Months or Most Recently Relevant to Health Maintenance Results * Referral to Orthopaedic Surgery (07/11/2025) us Mingo Lara MD OUTPATIENT REFERRAL ORDERAB LES Final Result * Albumin, Random Urine W/Creatinine (02/22/2025 9:22 AM EDT) Creatinine, Urine 179.73 mg/dL [facility] Microalbumin Urine 32.0 mg/L [facility] Microalbum Creatinine Ratio Ur 17.8 <30 ug/mg cr [facility] Comment:Albumin/Creatinine R atio Reference Ranges: Normal: < 30 ug/mg creatinine Microalbuminuria: 30 - 300 ug/mg creatinineClinical Albuminuria: > 300 ug/mg creatinine 02/22/2025 9:22 AM EDT 02/22/2025 1:59 PM EDT Laurel Valdes MD LAB URINE ORDERABLES Final Resul t Performing Organization Address [facility] de Phone Number [facility] [address] [place] [phone] * Lipid Panel, Standard (02/22/2025 9:10 AM EDT) Triglycerides 128 <150 mg/dL [facility] Comment:Desirable Triglyceri de: less than 150 mg/dLBorderline High Triglyceride 150-199 mg/dLHigh Triglyceride: 200-499 mg/dLVery High Triglyceride: greater than or equal to 5OO mg/dL Cholesterol 156 <200 mg/dL [facility] Comment:Desirable Cholestero l: less than 200 mg/dLBorderline High Cholesterol: 200-239 mg/dLHigh Cholesterol: greater than 239 mg/dL LDL Cholesterol Calculated 86 <100 mg/dL [facility] Comment:Desirable LDL: less than 100 mg/dLNear Optimal/Above Optimal LDL: 110- 129 mg/dLBorderline High LDL: 130-159 mg/dLHigh LDL: 160-189 mg/dLVery High LDL: greater than or equal to 190 mg/dL HDL Cholesterol 45 >40 mg/dL [facility] Comment:Desirable HDL: great er than 40 mg/dL Note: This HDL assay may give artificially low results in patients with liver disease. Blood Venous blood specimen / Unknown 02/22/2025 9:10 AM EDT 02/22/2025 1:59 PM EDT Laurel Valdes MD LAB BLOOD ORDERABLES Final Resul t Performing Organization Address [facility] Co de Phone Number [facility] [address] [place] [address] [phone] * POCT HGB A1C (11/12/2024 11:31 AM EST) Hemoglobin A1C 5.7 4.0 - 6.0 % QC Media Lot # [id number] Lot# Expiration Date [id number] Blood 11/12/2024 11:3 1 AM EST Laurel Valdes MD POINT OF CARE TEST ENTER/EDIT OR DERABLES Final Result * BI Mammogram Screening Tomosynthesis Bilateral (09/07/2024 3:48 PM EST) Anatomical Region Laterality Modality Breast Bilateral Mammography 09/07/2024 3:48 PM EST Narrative 09/16/2024 12:11 PM EST [facility] [address] [place], [place] [address] Mammography Report Signed Patient: Hawa Gagnon MR#: [id number] 57 : 1980 Acct:[id number] Age/Sex: 43 / F ADM Date: 09/07/24 Loc: HO.MAMMO Attending Dr: Laurel Valdes MD Ordering Physician: Laurel Valdes MD Results: 1Negati ve Date of Service: 09/07/24 Follow Up: 1 Year From Orig ina Mammogram Procedure(s): MM tomosynthesis screening BI Accession Number(s): [id number] cc: Laurel Valdes MD EXAMINATION: MM SCREENING [...] by: Elsi Fay DO 09/16/2024 12:07 PM EST RP Dictated By: Elsi Fay DO Signed By: <Electronically signed by Elsi Fay DO in OV> 09/16/24 1207 DD/ 1548 TD/TT: 09/07/24 1616 Pantry Cook: Procedure Note Donotuseinterpreter, Image - 09/16/2024 [facility] [address] [place], [place] [address] Mammography Report Signed Patient: Josh GagnonR#: [id number] 57 : 1980Acct:[id number] Age/Sex: 43 / FADM Date: 09/07/24 Loc: HO.MAMMO Attending Dr: Laurel Valdes MD Ordering Physician: Laurel Valdes MDResults: 1Negati ve Date of Service: 09/07/24Follow Up: 1 Year From Orig inal Mammogram Procedure(s): MM tomosynthesis screening BI Accession Number(s): [id number] cc: Laurel Valdes MD EXAMINATION: MM SCREENING [...] by: Elsi Fay DO 09/16/2024 12:07 PM EST RP Dictated By: Elsi Fya DO Signed By: <Electronically signed by Elsi Fay DO in OV> 09/16/24 1207 DD/ 1548 TD/TT: 09/07/24 1616 Pantry Cook: Laurel Valdes MD IMG BI PROCEDURES Final Result * HM PAP/HPV (06/23/2021) Pap Smear 1. NILM 1. NILM HPV Not Detected Undetected, Indeterminat e, Quantitative , Not Detected Historical Provider HEALTH MAINTENANCE Final Result from Last 3 Months or Most Recently Relevant to Health Maintenance [facility] Care Teams Propulsion Motor And Generator Repairer Relationship Specialty Start Date End Date Eleno Craft MD [address] [facility] [place] PCP - General Internal Medicine 08/25/25
--- OUTSIDE RECORDS SUMMARY | 2025-08-26 09:44 | XMS_ITS | Encounter Summary ---
Author Organization [employer] Address [address] [facility] 7t [place] [address] Care Team Providers Care Bleach Plant Operator Name Role Phone Laurel Valdes MD Primary Care Provider [phone] Encounter Details Date Type Department Care Team (Latest Contact Info) Description 08/23/2025 Travel Social History Tobacco Use Types Packs/Day Years [...] [facility] [address] [place] [address] Eleno Craft MD [address] [place] [address] documented as of this encounter Visit Diagnoses Not on filedocumented in this encounter Additional Health Concerns Assessment Noted Time PHQ-9 Depression Total Score: 9 05/06/20 25 2:17 PM EDT documented as of this encounter Care Teams Bleach Plant Operator Relationship Specialty Start Date End Date Laurel Valdes MD [address] [place] [address] PCP - General Family Medicine 11/26/13 08/24/25 documented as of this encounter
--- OUTSIDE RECORDS SUMMARY | 2025-08-26 09:44 | XMS_ITS | Encounter Summary ---
Author Organization [employer] Address [address] [place] [address] 7 [place] [address] Care Team Providers Care Security Attendant Name Role Phone Laurel Valdes MD Primary Care Provider [phone] Eleno Craft MD Primary Care Prov ider Reason for Visit * Reason Onset Date Comments Medication Question 06/29/2025 Encounter Details Date Type Department Care Team ([facility] st Contact Info) Description 06/29/2025 Telephone [facility] [address] [facility] [place] [address] Laurel Valdes MD [address] [place] [address] Medication Question Social History Tobacco Use Types Packs/Day Years [...] Telephone Encounter - Laurel Valdes MD - 07/06/2025 11:08 AM EDT Sent tp o pharmacy * Telephone Encounter - Molly Mathur RN - 07/02/2025 1:31 PM EDT Routing message to provider * Telephone Encounter - Jacoby Cuellar - 07/02/2025 10:54 AM EDT Tc from pt requesting status on injection. Contact pt at [phone] * Telephone Encounter - Jacoby Cuellar - 06/29/2025 10:51 AM EDT Tc from pt requesting a call back in regards to increasing the dosage for Zepbound. Contact pt at [phone] documented in this encounter Plan of Treatment Upcoming Encounters Date Type Department Care Team (Late st Contact Info) Description 09/14/2025 9:45 AM EST Office Visit [facility] [address] [place] [address] Eleno Craft MD [address] [place] [address] documented as of this encounter Visit Diagnoses Not on filedocumented in this encounter Additional Health Concerns Assessment Noted Time PHQ-9 Depression Total Score: 9 05/06/20 2:17 PM EDT documented as of this encounter Care Teams Security Attendant Relationship Specialty Start Date End Date Laurel Valdes MD [address] [place] [phone] PCP - General Family Medicine 11/26/13 08/24/25 Eleon Craft MD [address] [place] [address] PCP - General Internal Medicine 08/25/25 documented as of this encounter
--- OUTSIDE RECORDS SUMMARY | 2025-08-26 09:44 | XMS_ITS | Encounter Summary ---
Author Organization [employer] Address [address] [place] [address] 7 [place] [address] Care Team Providers Care Senior Accounts Payable Specialist Name Role Phone Laurel Valdes MD Primary Care Provider [phone] Eleno Craft MD Primary Care Prov ider Reason for Visit * Reason Comments Med Refill Encounter Details Date Type Department Care Team ([facility] st Contact Info) Description 04/12/[address] [facility] [address] [facility] [place] [address] Laurel Valdes MD [address] [place] [address] Social History Tobacco Use Types Packs/Day Years [...] Description 09/14/2025 9:45 AM EST Office Visit [facility] [address] [place] [address] Eleno Craft MD [address] [place] [address] documented as of this encounter Visit Diagnoses Not on filedocumented in this encounter Additional Health Concerns Assessment Noted Time PHQ-9 Depression Total Score: 24 023 9:56 AM EST documented as of this encounter Care Teams Senior Accounts Payable Specialist Relationship Specialty Start Date End Date Laurel Valdes MD [address] [place] [address] PCP - General Family Medicine 11/26/13 08/24/25 Eleno Craft MD [address] [place] [address] PCP - General Internal Medicine 08/25/25 documented as of this encounter
--- OUTSIDE RECORDS SUMMARY | 2025-08-26 09:44 | XMS_ITS | Encounter Summary ---
Author Organization [employer] Address [address] [place] [address] 7 [place] [address] Care Team Providers Care Cloth Shrinking Machine Operator Name Role Phone Laurel Valdes MD Primary Care Provider [phone] Eleno Craft MD Primary Care Prov ider Reason for Visit * Reason Comments Med Refill Encounter Details Date Type Department Care Team ([facility] st Contact Info) Description 08/02/2025 Refill [facility] [address] [facility] [place] [address] Laurel Valdes MD [address] [place] [address] Social History Tobacco Use Types Packs/Day Years [...] Description 09/14/2025 9:45 AM EST Office Visit [facility] [address] [place] [address] Eleno Craft MD [address] [place] [address] documented as of this encounter Visit Diagnoses Not on filedocumented in this encounter Additional Health Concerns Assessment Noted Time PHQ-9 Depression Total Score: 9 05/06/20 25 2:17 PM EDT documented as of this encounter Care Teams Cloth Shrinking Machine Operator Relationship Specialty Start Date End Date Laurel Valdes MD [address] [place] [address] PCP - General Family Medicine 11/26/13 08/24/25 Eleno Craft MD [address] [place] [address] PCP - General Internal Medicine 08/25/25 documented as of this encounter
--- OUTSIDE RECORDS SUMMARY | 2025-08-26 09:44 | XMS_ITS | Encounter Summary ---
Author Organization [employer] Address [address] [place] [address] 7 [place] [address] Care Team Providers Care Senior Loss Control Specialist Name Role Phone Laurel Valdes MD Primary Care Provider [phone] Eleno Craft MD Primary Care Prov ider Reason for Visit * Reason Onset Date Comments Appointment Request 12/15/2024 Encounter Details Date Type Department Care Team ([facility] st Contact Info) Description 12/15/2024 Telephone [facility] [address] [place] [address] Laurel Valdes MD [address] [place], [place] [phone] Appointment Request Social History Tobacco Use Types [...] feeling well and will like to r/s [phone] documented in this encounter Plan of Treatment Upcoming Encounters Date Type Department Care Team (Late st Contact Info) Description 09/14/2025 9:45 AM EST Office Visit [facility] [address] [place] [address] Eleno Craft MD [address] [place] [address] documented as of this encounter Visit Diagnoses Not on filedocumented in this encounter Additional Health Concerns Assessment Noted Time PHQ-9 Depression Total Score: 24 023 9:56 AM EST documented as of this encounter Care Teams Senior Loss Control Specialist Relationship Specialty Start Date End Date Laurel Valdes MD [address] [place] [address] PCP - General Family Medicine 11/26/13 08/24/25 Eleno Craft MD [address] [place] [address] PCP - General Internal Medicine 08/25/25 documented as of this encounter
--- OUTSIDE RECORDS SUMMARY | 2025-08-26 09:44 | XMS_ITS | Clinical Summary ---
Author Organization [facility] Address [address] [place] [address] Care Team Providers Care Associate Account Manager Name Role Phone Unavailable Primary Care Provider Unavailabl e Social History Tobacco Use Types Packs/Day Years Used Date Smoking Tobacco: Never Assessed Sex and Gender Information Value Date Recorded Sex Assigned at Not on file Gender Identity Not on file Sexual Orientation Not on file Plan of Treatment Not on file
--- OUTSIDE RECORDS SUMMARY | 2025-08-26 09:44 | XMS_ITS | Encounter Summary ---
Author Organization [employer] Address [address] [place] [address] Care Team Providers Care Director Vaccine Name Role Phone Laurel Valdes MD Primary Care Provider Eleno Craft MD Primary Care Prov ider Encounter Details Date Type Department Care Team (Late Contact Info) Description 11/02/2022 Orders Only [facility] [address] [place], [place] [phone] Laurel Valdes MD [address] [place], [place] [phone] GERD without esophagitis Social History Tobacco Use [...] Description 09/14/2025 9:45 AM EST Office Visit [facility] [address] [place], [place] [phone] Eleno Craft MD [address] [place], [place] [phone] documented as of this encounter Visit Diagnoses Diagnosis GERD without esophagitis Esophageal reflux documented in this encounter Care Teams Director Vaccine Relationship Specialty Start Date End Date Laurel Valdes MD [address] [place] [address] PCP - General Family Medicine 11/26/13 08/24/25 Eleno Craft MD [address] [place] [address] PCP - General Internal Medicine 08/25/25 documented as of this encounter
[2025-08-26 14:50] LABS: Alanine Aminotransferase 20 U/L (0-31); Albumin Level 4.7 g/dL (3.5-5.0); Alkaline Phosphatase 115 U/L (39-117); Anion Gap 14 (12-20); Aspartate Amino Transferase 28 U/L (5-31); Blood Urea Nitrogen 21 mg/dL (9-16); Calcium 9.8 mg/dL (8.4-10.2); Carbon Dioxide 26 mmol/L (22-29); Chloride 104 mmol/L (96-108); Cholesterol 169 mg/dL (<200); Estimated Glomerular Filt Rate 55; HDL Cholesterol 52 mg/dL (>40); Potassium 3.3 mmol/L (3.3-5.1); Sodium 141 mmol/L (135-145); Total Protein 7.7 g/dL (6.5-8.0); Triglycerides 118 mg/dL (<150)
== END 2025-08-26 08:50 | disposition home or self-care (01) ==
LOC: HO.CHCLDS 08:49
PROVIDERS: Visit Provider Student in an Organized Health Care Education/Training Program
DX: E11.59 Type 2 diabetes mellitus with other circulatory complications (principal); I10 Essential (primary) hypertension
CPT/HCPCS: 36415; 80048; 80061; 80076; 83036

== ENCOUNTER 2025-10-14 14:21 | Outpatient (REF) | payer MEDICAID, SELFPAY ==
--- OUTSIDE RECORDS SUMMARY | 2025-10-14 13:45 | XMS_ITS | Encounter Summary ---
Author Organization [employer] Address [address] [place] [address] Care Team Providers Care Cigarette Packing Machine Operator Name Role Phone Eleno Craft MD Primary Care Prov ider Reason for Referral * Imaging (Routine) - Authorized Specialty Diagnoses / Procedures Referred By Haily ubi Referred To Contact Radiology Diagnoses Primary hypertension Procedures US RENAL BI Eleno Craft MD [address] [place] [address] Phone: tel: fax: [address] [address] Phone: tel: fax: Referral ID Status Reason Start Date Expiration Date V isits Requested Visits Authorized [id number] Authorized 10/14/2025 10/14/2026 1 1 * Consultation (Routine) - Authorized Specialty Diagnoses / Procedures Referred By Contac t Referred To Contact Optometry Diagnoses Type 2 diabetes mellitus with other circulatory complication, without long-term current use of insulin (HCC) Eleno Craft MD [address] [place] [address] Phone: tel: fax: [facility], [address] Phone: tel: fax: Referral ID Status Reason Start Date Expiration Date Visits Requested Visits Authorized [id number] Authorized Specialty Services Required 10/14/2026 1 1 * Imaging (Routine) - Authorized Specialty Diagnoses / Procedures Referred By Contac t Referred To Contact Radiology Diagnoses Encounter for screening mammogram for malignant neoplasm of breast Procedures BI Mammogram Screening Tomosynthesis Bilateral Eleno Craft MD [address] [place] [address] Phone: tel: fax: [address] [address] Phone: tel: fax: Referral ID Status Reason Start Date Expiration Date V isits Requested Visits Authorized [id number] Authorized 10/14/2025 10/14/2026 1 1 Encounter Details Date Type Department Care Team (Late st Contact Info) Description 10/14/2025 1:45 PM EST Office Visit [facility] CHC MED & PEDS [address] [place] [address] Eleno Craft MD [address] [place] [address] Type 2 diabetes mellitus with other circulatory complication, without long-term current use of insulin (HCC) (Primary Dx); Encounter for screening mammogram for malignant neoplasm of breast; Dietary counseling; Exercise counseling; Mild intermittent asthma without complication; Primary hypertension Social History Tobacco Use Types Packs/Day Years Used Date Smoking Tobacco: Never Smokeless Tobacco: Never Depression Answer Date Recorded Patient Health Questionnaire-9 Score 9 05/06/2025 Patient Health Questionnaire-9 Score 9 05/06/2025 Last PHQ-9: Questionnaire Data Not on file 0 05/06/2025 Housing Stability Answer Date Recorded What is your housing situation today? I have charlotte pereyra 10/14/[address] you li ve. Do you have problems with any of the following? None of the above 10/14/2025 Food Insecurity Answer Date Recorded Within the past 12 months, y ou worried that your food would run out before you got money to buy more: Never True 10/14/2025 Within the past 12 months,th e food you bought just didn't last and you didn't have enough money to get more: Never True Transportation Answer Date Recorded In the past 12 months, has l ack of transportation kept you from medical appts, meetings, work or from getting things needed for daily living? No 10/14/2025 Utilities Answer Date Recorded In the past 12 months, has t he electric, gas, oil or water company threatened to shut off services in your home? No 10/14/2025 Depression Answer Date Recorded Patient Health Questionnaire-2 [...] AM EDT documented as of this encounter Last Filed Vital Signs Vital Sign Reading Time Taken Comments Blood Pressure 131/66 10/14/2025 1:48 PM EST Pulse 68 10/14/2025 1:48 PM EST Temperature 36.9 C (98.4 F) 10/14/2025 1:48 PM EST Respiratory Rate 20 10/14/2025 1:48 PM EST Oxygen Saturation - - Inhaled Oxygen Concentration - - Weight 89.4 kg (197 lb) 10/14/2025 1:48 PM EST Height 157.5 cm (5' 2 ) 10/14/2025 1:48 PM EST Body Mass Index 36.03 10/14/2025 1:48 PM EST documented in this encounter Progress Notes * Eleno Darling MD - 10/14/2025 1:45 PM EST Subjective Patient ID: Hawa Gagnon is a 45 y.o. female who presents for No chief complaint on file.. Hypertension This is a chronic problem. The problem is controlled. Pertinent negatives include no chest pain, headaches, palpitations, peripheral edema or shortness of breath. Diabetes She presents for her follow-up diabetic visit. She has type 2 diabetes mellitus. Her disease coursehas been stable. Pertinent negatives for hypoglycemia include no headaches. Pertinent negatives fordiabetes include no chest pain, no foot ulcerations, no polydipsia, no polyphagia and no polyuria. Review of Systems Respiratory: Negative for shortness of breath. Cardiovascular: Negative for chest pain and palpitations. Endocrine: Negative for polydipsia, polyphagia and polyuria. Neurological: Negative for headaches. Objective Physical Exam Constitutional: General: She is not in acute distress. Appearance: Normal appearance. She is normal weight. Cardiovascular: Rate and Rhythm: Normal rate and regular rhythm. Pulses: Dorsalis pedis pulses are 2+ on the right side and 2+ on the left side. Posterior tibial pulses are 2+ on the right side and 2+ on the left side. Heart sounds: Normal heart sounds. No murmur heard. Pulmonary: Effort: Pulmonary effort is normal. Breath sounds: Normal breath sounds. Abdominal: General: Bowel sounds are normal. There is no distension. Palpations: Abdomen is soft. There is no mass. Tenderness: There is no abdominal tenderness. There is no guarding. Musculoskeletal: General: Normal range of motion. Right lower leg: No edema. Left lower leg: No edema. Right foot: Normal range of motion. No deformity, bunion, Charcot foot or prominent metatarsal heads. Left foot: Normal range of motion. No deformity, bunion, Charcot foot or prominent metatarsal heads. Feet: Right foot: Protective Sensation: 7 sites tested. 7 sites sensed. Skin integrity: Skin integrity normal. No ulcer, blister, skin breakdown, erythema, warmth, callus or dry skin. Toenail Condition: Right toenails are normal. Left foot: Protective Sensation: 7 sites tested. 7 sites sensed. Skin integrity: Skin integrity normal. No ulcer, blister, skin breakdown, erythema, warmth, callus or dry skin. Toenail Condition: Left toenails are normal. Skin: Capillary Refill: Capillary refill takes less than 2 seconds. Findings: No rash. Neurological: Mental Status: She is alert and oriented to person, place, and time. Psychiatric: Mood and Affect: Mood normal. Behavior: Behavior normal. Assessment/Plan Problem List Items Addressed This Visit Asthma Relevant Medications cetirizine (ZyrTEC) 10 MG tablet Diabetes mellitus (HCC) - Primary Controlled, last A1c <7.0%, no changes will be made, follow up in 3 months, will renew zepbound for diabetes, and will refer for eye exam Relevant Medications Tirzepatide-Weight Management (Zepbound) 7.5 MG/0.5ML solution auto-injector Other Relevant Orders Albumin, Random Urine W/Creatinine HIV-1/2 Antigen and Antibodies, Fourth Generation, with Reflexes Hepatitis C Antibody with Reflex to HCV, RNA, Quantitative, Real-Time PCR Referral to Optometry Hypertension Controlled, keep low sodium diet and exercise as tolerated, keep blood pressure log, follow up in 3months Other Visit Diagnoses Encounter for screening mammogram for malignant neoplasm of breast Relevant Orders BI Mammogram Screening Tomosynthesis Bilateral Dietary counseling Relevant Medications Tirzepatide-Weight Management (Zepbound) 7.5 MG/0.5ML solution auto-injector Exercise counseling Relevant Medications Tirzepatide-Weight Management (Zepbound) 7.5 MG/0.5ML solution auto-injector documented in this encounter Miscellaneous Notes * Assessment & Plan Note - Eleno Darling MD - 10/14/2025 2:15 PM ESTAssociated Problem(s): Diabetes mellitus (HCC) Controlled, last A1c <7.0%, no changes will be made, follow up in 3 months, will renew zepbound for diabetes, and will refer for eye exam * Assessment & Plan Note - Eleno Darling MD - 10/14/2025 2:14 PM ESTAssociated Problem(s): Hypertension Controlled, keep low sodium diet and exercise as tolerated, keep blood pressure log, follow up in 3months * Addendum Note - Eleno Dalring MD - 10/14/2025 1:45 PM EST Addended by: ELENO JACK on: 10/14/2025 03:12 PM Modules accepted: Orders documented in this encounter Plan of Treatment Scheduled Orders Name Type Priority Associated Diagnoses Orde r Schedule BI Mammogram Screening Tomosynthesis Bilateral Imaging Routine Encounter for screening mammogram for malignant neoplasm of breast Expected: 10/14/2025, Expires: 12/15/2026 HIV-1/2 Antigen and Antibodies, Fourth Generation, with Reflexes Lab Routine Type 2 diabetes mellitus with other circulatory complication, without long-term current use of insulin (HCC) Expected: 10/14/2025 (Approximate), Expires: 10/14/2026 Hepatitis C Antibody with Reflex to HCV, RNA, Quantitative, Real-Time PCR Lab Routine Type 2 diabetes mellitus with other circulatory complication, without long-term current use of insulin (HCC) Expected: 10/14/2025, Expires: 10/14/2026 US RENAL BI Imaging Routine Primary hypertension Expected: 10/14/2025, Expires: 10/14/2026 Scheduled Referrals Name Type Priority Associated Diagnoses Orde r Schedule Referral to Optometry Outpatient Referral Routine Type 2 diabetes mellitus with other circulatory complication, without long-term current use of insulin (HCC) Expected: 10/14/2025 (Approximate), Expires: 10/14/2026 documented as of this encounter Goals Goal Patient Goal Type Associated Problems Recent Progress Patient-Stated? Author Help patients manage their type 2 diabetes Care Plan Help patients manage their type 2 diabetes No Eleno Craft MD Weekly blood pressure task Care Plan Weekly blood pressure task No Eleno Craft MD Help patients manage their type 2 diabetes Care Plan Help patients manage their type 2 diabetes No Eleno Craft MD Patient has chronic kidney disease Care Plan Patient has chronic kidney disease No Eleno Craft MD Weekly blood pressure task Care Plan Weekly blood pressure task No Eleno Craft MD Patient has chronic kidney disease Care Plan Patient has chronic kidney disease No Eleno Craft MD documented as of this encounter Procedures Procedure Name Priority Date/Time Associated Diagnosis Comments ALBUMIN, RANDOM URINE W/CREATININE Routine 10/14/2025 2:22 PM EST Type 2 diabetes mellitus with other circulatory complication, without long-term current use of insulin (HCC) documented in this encounter Results * Albumin, Random Urine W/Creatinine (10/14/2025 2:22 PM EST) Creatinine, Urine 292.71 mg/dL [facility] Microalbumin Urine 46.0 mg/L [facility] Microalbum Creatinine Ratio Ur 15.7 <30 ug/mg cr [facility] Comment:Albumin/Creatinine R atio Reference Ranges: Normal: < 30 ug/mg creatinine Microalbuminuria: 30 - 300 ug/mg creatinineClinical Albuminuria: > 300 ug/mg creatinine Urine (Urine, Random) 10/14/2025 2:22 PM EST 10/14/2025 3:00 PM EST us Eleno Darling MD LAB URINE ORDERABL ES Final Result [facility] [address] [place] [address] [phone] documented in this encounter Visit Diagnoses Diagnosis Type 2 diabetes mellitus with other circulatory complication, without long-term current use of insulin (HCC)- Primary Encounter for screening mammogram for malignant neoplasm of breast Dietary counseling Dietary surveillance and counseling Exercise counseling Mild intermittent asthma without complication Primary hypertension Unspecified essential hypertension documented in this encounter Additional Health Concerns Active Problems Noted Date Diagnosed Date Help patients manage their type 2 diabetes 10/14 Weekly blood pressure task 10/14/2025 Help patients manage their type 2 diabetes 10/14 Patient has chronic kidney disease 10/14/2025 Weekly blood pressure task 10/14/2025 Patient has chronic kidney disease 10/14/2025 Assessment Noted Time PHQ-9 Depression Total Score: 9 05/06/20 25 2:17 PM EDT documented as of this encounter Care Teams Cigarette Packing Machine Operator Relationship Specialty Start Date End Date Eleno Craft MD [address] [place] [address] PCP - General Internal Medicine 08/25/25 documented as of this encounter
[2025-10-14 15:44] LABS: Microalbum/Creatinine Ratio Ur 15.7 ug/mg cr (<30)
--- OUTSIDE RECORDS SUMMARY | 2025-10-14 18:34 | XMS_ITS | Encounter Summary ---
Author Organization [employer] Address [address] [place] [address] 7 [place] [address] Care Team Providers Care Broadcaster Name Role Phone Laurel Valdes MD Primary Care Provider [phone] Eleno Craft MD Primary Care Prov ider Reason for Visit * Reason Comments Med Refill Encounter Details Date Type Department Care Team ([facility] st Contact Info) Description 04/12/2025 Refill [facility] CHC MED & PEDS [address] [facility] [place] [address] Laurel Valdes MD [address] [place] [address] Social History Tobacco Use Types Packs/Day Years [...] documented as of this encounter Care Teams Broadcaster Relationship Specialty Start Date End Date Laurel Valdes MD [address] [place] [address] PCP - General Family Medicine 11/26/13 08/24/25 Eleno Craft MD [address] [place] [address] PCP - General Internal Medicine 08/25/25 documented as of this encounter
--- OUTSIDE RECORDS SUMMARY | 2025-10-14 18:34 | XMS_ITS | Encounter Summary ---
Author Organization [employer] Address [address] [facility] 7 [place] [address] Care Team Providers Care Outside Maintenance Worker Name Role Phone Laurel Valdes MD Primary Care Provider [phone] Eleno Craft MD Primary Care Prov ider Reason for Visit * Reason Onset Date Comments Prior Auth Prescription 03/09/2025 Encounter Details Date Type Department Care Team ([facility] st Contact Info) Description 03/09/2025 Telephone [facility] MEDICINE [address] [place] [address] Laurel Valdes MD [address] [place], [place] [id number] Prior Auth Prescription Social History Tobacco Use [...] documented in this encounter Plan of Treatment Not on file documented as of this encounter Visit Diagnoses Not on filedocumented in this encounter Additional Health Concerns Assessment Noted Time PHQ-9 Depression Total Score: 24 023 9:56 AM EST documented as of this encounter Care Teams Outside Maintenance Worker Relationship Specialty Start Date End Date Laurel Valdes MD [address] [place] [address] PCP - General Family Medicine 11/26/13 08/24/25 Eleno Craft MD [address] [place] [address] PCP - General Internal Medicine 08/25/25 documented as of this encounter
--- OUTSIDE RECORDS SUMMARY | 2025-10-14 18:34 | XMS_ITS | Encounter Summary ---
Author Organization [employer] Address [address] [place] [address] Care Team Providers Care Corporate Statistical Financial Analyst Name Role Phone Laurel Valdes MD Primary Care Provider [phone] Eleno Craft MD Primary Care Prov ider Encounter Details Date Type Department Care Team (Late st Contact Info) Description 04/08/2023 Orders Only [facility] MEDICINE [address] [place] [address] Jane Tapia LPN Social History Tobacco Use [...] on filedocumented in this encounter Care Teams Corporate Statistical Financial Analyst Relationship Specialty Start Date End Date Laurel Valdes MD [address] [place] [address] PCP - General Family Medicine 11/26/13 08/24/25 Eleno Craft MD [address] [place] [address] PCP - General Internal Medicine 08/25/25 documented as of this encounter
--- OUTSIDE RECORDS SUMMARY | 2025-10-14 18:34 | XMS_ITS | Encounter Summary ---
Author Organization [employer] Address [address] [place] [address] Care Team Providers Care Microbiology Analyst Name Role Phone Laurel Valdes MD Primary Care Provider [phone] Eleno Craft MD Primary Care Prov ider Encounter Details Date Type Department Care Team ([facility] Contact Info) Description 01/17/2023 Orders Only [facility] CHC MED & PEDS [address] [place] [address] Chayo Triana LPN Social History Tobacco Use [...] on filedocumented in this encounter Care Teams Microbiology Analyst Relationship Specialty Start Date End Date Laurel Valdes MD [address] [place] [address] PCP - General Family Medicine 11/26/13 08/24/25 Eleno Craft MD [address] [place] [address] PCP - General Internal Medicine 08/25/25 documented as of this encounter
--- OUTSIDE RECORDS SUMMARY | 2025-10-14 18:34 | XMS_ITS | Encounter Summary ---
Author Organization [employer] Address [address] [facility] [address] [place] [address] Care Team Providers Care Mitigation Supervisor Name Role Phone Eleno Craft MD Primary Care Prov ider Encounter Details Date Type Department Care Team (Latest Contact Info) Description 10/14/2025 Travel Social History Tobacco Use Types Packs/Day [...] on file documented as of this encounter Goals Goal [...] Craft MD documented as of this encounter Visit Diagnoses Not on filedocumented in this encounter Additional Health Concerns Active [...] documented as of this encounter Care Teams Mitigation Supervisor Relationship Specialty Start Date End Date Eleno Craft MD [address] [place] [address] PCP - General Internal Medicine 08/25/25 documented as of this encounter
--- OUTSIDE RECORDS SUMMARY | 2025-10-14 18:34 | XMS_ITS | Encounter Summary ---
Author Organization [employer] Address [address] [place] [address] 7 [place] [address] Care Team Providers Care Waterfront Director Name Role Phone Laurel Valdes MD Primary Care Provider [phone] Eleno Craft MD Primary Care Prov ider Reason for Visit * Reason Comments Med Refill Encounter Details Date Type Department Care Team ([facility] st Contact Info) Description 08/02/2025 Refill [facility] CHC MED & PEDS [address] [facility] [address] Laurel Valdes MD [address] [place] [address] Social History Tobacco Use Types Packs/Day Years [...] documented as of this encounter Care Teams Waterfront Director Relationship Specialty Start Date End Date Laurel Valdes MD [address] [place] [address] PCP - General Family Medicine 11/26/13 08/24/25 Eleno Craft MD [address] [place] [address] PCP - General Internal Medicine 08/25/25 documented as of this encounter
--- OUTSIDE RECORDS SUMMARY | 2025-10-14 18:34 | XMS_ITS | Clinical Summary ---
Author Organization [facility] Prior to 03/27/25 Address [address] [place] [address] Care Team Providers Care Inclusion Paraeducator Name Role Phone Unavailable Primary Care Provider Unavailabl e Social History Tobacco Use Types Packs/Day Years Used Date Smoking Tobacco: Never Assessed Sex and Gender Information Value Date Recorded Sex Assigned at Not on file Gender Identity Not on file Sexual Orientation Not on file Plan of Treatment Not on file
--- OUTSIDE RECORDS SUMMARY | 2025-10-14 18:34 | XMS_ITS | Encounter Summary ---
Author Organization [employer] Address [address] [place] [address] Care Team Providers Care Publicity Manager Name Role Phone Laurel Valdes MD Primary Care Provider [phone] Eleno Craft MD Primary Care Prov ider Encounter Details Date Type Department Care Team (Late st Contact Info) Description 11/02/2022 Orders Only [facility] MEDICINE [address] [place], [place] [phone] Laurel Valdes MD [address] [place], [place] [phone] GERD without esophagitis Social History Tobacco Use [...] reflux documented in this encounter Care Teams Publicity Manager Relationship Specialty Start Date End Date Laurel Valdes MD [address] [place] [address] PCP - General Family Medicine 11/26/13 08/24/25 Eleno Craft MD [address] [place] [address] PCP - General Internal Medicine 08/25/25 documented as of this encounter
--- OUTSIDE RECORDS SUMMARY | 2025-10-14 18:34 | XMS_ITS | Encounter Summary ---
Author Organization [employer] Address [address] [place] [address] 7 [place] [address] Care Team Providers Care Cake Former Name Role Phone Eleno Craft MD Primary Care Prov ider Reason for Visit * Reason Comments Med Refill Encounter Details Date Type Department Care Team ([facility] st Contact Info) Description 09/22/2025 Refill [facility] CHC MED & PEDS [address] [place] [address] Laurel Valdes MD [address] [place] [address] Social History Tobacco Use Types Packs/Day Years [...] documented as of this encounter Care Teams Cake Former Relationship Specialty Start Date End Date Eleno Craft MD [address] [place] [address] PCP - General Internal Medicine 08/25/25 documented as of this encounter
--- OUTSIDE RECORDS SUMMARY | 2025-10-14 18:34 | XMS_ITS | Encounter Summary ---
Author Organization [employer] Address [address] [place] [address] 7 [place] [address] Care Team Providers Care Reliability Technician Name Role Phone Laurel Valdes MD Primary Care Provider [phone] Eleno Craft MD Primary Care Prov ider Reason for Visit * Reason Onset Date Comments Med Refill 09/14/2024 Encounter Details Date Type Department Care Team ([facility] st Contact Info) Description 09/14/2024 Telephone [facility] MED & PEDS [address] [place] [address] Laurel Valdes MD [address] [place] [address] Med Refill Social History Tobacco Use Types [...] in my list of meds Preferred pharmacy: [facility] [place] - [address] Delivery method: Pickup documented in this encounter Plan of Treatment Not on file documented as of this encounter Visit Diagnoses Not on filedocumented in this encounter Additional Health Concerns Assessment Noted Time PHQ-9 Depression Total Score: 24 023 9:56 AM EST documented as of this encounter Care Teams Reliability Technician Relationship Specialty Start Date End Date Laurel Valdes MD [address] [place] [address] PCP - General Family Medicine 11/26/13 08/24/25 Eleno Craft MD [address] [place] [address] PCP - General Internal Medicine 08/25/25 documented as of this encounter
--- OUTSIDE RECORDS SUMMARY | 2025-10-14 18:34 | XMS_ITS | Encounter Summary ---
Author Organization [employer] Address [address] [place] [address] 7 [place] [address] Care Team Providers Care Emergency Department Clinician Name Role Phone Laurel Valdes MD Primary Care Provider [phone] Eleno Craft MD Primary Care Prov ider Reason for Visit * Reason Onset Date Comments Medication Question 06/29/2025 Encounter Details Date Type Department Care Team ([facility] st Contact Info) Description 06/29/2025 Telephone [facility] CHC MED & PEDS [address] [facility] [place] [address] Laurel Valdes MD [address] [place] [address] Medication Question Social History Tobacco Use Types [...] requesting status on injection. Contact pt at [phone] * Telephone Encounter - Jacoby Cuellar - 06/29/2025 10:51 AM EDT Tc from pt requesting a call back in regards to increasing the dosage for Zepbound. Contact pt at [phone] documented in this encounter Plan of Treatment Not on file documented as of this encounter Visit Diagnoses Not on filedocumented in this encounter Additional Health Concerns Assessment Noted Time PHQ-9 Depression Total Score: 9 05/06/20 2:17 PM EDT documented as of this encounter Care Teams Emergency Department Clinician Relationship Specialty Start Date End Date Laurel Valdes MD [address] [place] [address] PCP - General Family Medicine 11/26/13 08/24/25 Eleno Craft MD [address] [place] [address] PCP - General Internal Medicine 08/25/25 documented as of this encounter
--- OUTSIDE RECORDS SUMMARY | 2025-10-14 18:34 | XMS_ITS | Encounter Summary ---
Author Organization [employer] Address [address] [place] [address] [place] [address] Care Team Providers Care Trust Administrative Assistant Name Role Phone Laurel Valdes MD Primary Care Provider [phone] Eleno Craft MD Primary Care Prov ider Reason for Visit * Reason Onset Date Comments Nurse Triage 01/14/2024 Encounter Details Date Type Department Care Team ([facility] st Contact Info) Description 01/14/2024 Telephone [facility]S [address] [place] [address] Laurel Valdes MD [address] [place] [address] Nurse Triage Social History Tobacco Use Types [...] documented as of this encounter Care Teams Trust Administrative Assistant Relationship Specialty Start Date End Date Laurel Valdes MD [address] [place] [phone] PCP - General Family Medicine 11/26/13 08/24/25 Eleno Craft MD [address] [place] [phone] PCP - General Internal Medicine 08/25/25 documented as of this encounter
--- OUTSIDE RECORDS SUMMARY | 2025-10-14 18:34 | XMS_ITS | Clinical Summary ---
Author Organization [employer] Address [address] [place] [address] 7 [place] [address] Care Team Providers Care Dog Catcher Name Role Phone Eleno Craft MD Primary [...] tab BID 100 each 11 024 Active clobetasol (Temovate) 0.05 % [...] omeprazole (PriLOSEC) [address] capsule Take 20 mg by mouth Once per day. 024 Active Blood Glucose Monitoring Suppl (Fiiiling [place] Lite) w/Device kit Use to test blood sugar 2 times daily 1 kit 11/06/2 024 Active lamoTRIgine (LaMICtal) 200 MG tablet Take 1 tablet by mouth in the morning. 150mg 025 Active Vitamins-Lipot ropics (B Complex Formula 1, Lipotrop,) tablet Take 1 tablet by mouth in the morning. 024 Active metFORMIN (Glucophage) 500 MG tablet Take 1 tablet (500 mg) by mouth Once per day. 90 tablet 3 025 Active docusate sodium (Colace) 100 MG capsule TAKE 1 CAPSULE BY MOUTH TWICE A DAY 180 capsule 025 Active minoxidil (Loniten) 2.5 MG tabletIndicati ons:Androgenet ic alopecia Take 2 tablets (5 mg) by mouth Once per day. 60 tablet 11 10/06/20 25 9:37 AM EST 025 2025 Active FREESTYLE LITE test stripIndicatio ns:Type 2 diabetes mellitus without complication, without long-term current use of insulin ([facility]) TEST BLOOD SUGAR TWICE DAILY 50 strip 5 025 Active amLODIPine (Norvasc) 10 MG tablet TAKE ONE TABLET DAILY 90 tablet 1 10/06/20 25 9:37 AM EST 025 Active albuterol (Ventolin HFA) 108 (90 Base) MCG/ACT inhaler INHALE TWO PUFFS EVERY 4 TO 6 HOURS NEEDED 18 g 2 025 Active ondansetron (Zofran) 4 MG tabletIndicati ons:Cannabis dependence, continuous (CMS/HCC) ([facility]) TAKE ONE TABLET EVERY 8 HOURS NEEDED FOR NAUSEA AND VOMITING 30 tablet 025 Active atorvastatin (Lipitor) 10 MG tablet Take 1 tablet (10 mg) by mouth Once per day. 30 tablet 11 025 2025 Active Blood Pressure kit Check blood pressure daily 1 kit 025 Active hydroCHLOROthi azide (HYDRODiuril) 25 MG tabletIndicati ons:Hypertensi on, unspecified type TAKE 1 TABLET BY MOUTH EVERY MORNING 90 tablet 1 10/06/20 25 9:37 AM EST 025 Active cetirizine (ZyrTEC) 10 MG tablet Take 1 tablet (10 mg) by mouth Once per day. 30 tablet 5 025 2025 Active Tirzepatide-We ight Management (Zepbound) 7.5 MG/0.5ML solution auto-injector Inject 0.5 mL (7.5 mg) under the skin 1 (one) time per week. 2 mL 3 Active minoxidil (Loniten) 2.5 MG tabletIndicati ons:Androgenet ic alopecia Take 1 tablet (2.5 mg) by mouth Once per day. 30 tablet 11 024 2024 Discontinued cetirizine (ZyrTEC) 10 MG tablet Take 1 tablet (10 mg) by mouth Once per day. 30 tablet 5 025 2024 Discontinued(R eorder (will not trigger notification to Pharmacy)) hydroCHLOROthi azide (HYDRODiuril) 25 MG tabletIndicati ons:Hypertensi on, unspecified type TAKE 1 TABLET BY MOUTH EVERY MORNING 90 tablet 1 025 2024 Discontinued loratadine (Claritin) 10 MG tablet TAKE ONE TABLET EVERY MORNING 90 tablet 1 025 2024 Discontinued Tirzepatide-We ight Management (Zepbound) 7.5 MG/0.5ML solution auto-injector Inject 0.5 mL (7.5 mg) under the skin 1 (one) time per week. 2 mL 3 025 2024 Discontinued Zepbound 7.5 MG/0.5ML solution auto-injector INJECT ONE PEN (=7.5MG) SUBCUTANEOUSLY ONCE A WEEK DIRECTED 2 mL 025 2024 Discontinued(R eorder (will not trigger notification to Pharmacy)) Active Problems Problem Noted Date Diagnosed Date Cannabis dependence, continuous (CMS/HCC) 2024 SURESH (generalized anxiety disorder) 09/27/2023 Bipolar I disorder, current episode depressed (C MS/HCC) 02/07/2023 Depressive disorder 02/07/2023 Diabetes mellitus 02/07/2023 Assessment & Plan (10/14/2025 2:15 PM EST): Controlled, last A1c <7.0%, no changes will be made, follow up in 3 months, will renew zepbound for diabetes, and will refer for eye exam Gastroesophageal reflux disease 02/07/2023 Hypertension 02/07/2023 Assessment & Plan (10/14/2025 2:14 PM EST): Controlled, keep low sodium diet and exercise as tolerated, keep blood pressure log, follow up in 3 months Asthma 04/15/2014 Encounters Date Type Department Care Team Description 10/14/2025 1:45 PM EST Office Visit [facility] [address] [place] [address] Eleno Craft MD Type 2 diabetes mellitus with other circulatory complication, without long-term current use of insulin (HCC) (Primary Dx); Encounter for screening mammogram for malignant neoplasm of breast; Dietary counseling; Exercise counseling; Mild intermittent asthma without complication; Primary hypertension 10/14/2025 Travel 10/01/2025 Refill [facility] [address] [place] [address] Laurel Valdes MD 09/30/2025 Refill [facility] [address] [place] [address] Laurel Valdes MD Hypertension, unspecified type 09/22/2025 Refill [facility] [address] [place] [address] Laurel Valdes MD 09/13/2025 Telephone [facility] [address] [place] [address] Eleno Craft MD chart prep 09/07/2025 Patient Outreach [facility] [address] [place] [address] Eleno Craft MD Pre-visit Planning (SDOH will need to complete in office. ) 08/23/2025 11:30 AM EDT Telemedicine [facility] [address] [place] [address] Laurel Valdes MD Primary hypertension (Primary Dx); Type 2 diabetes mellitus with other circulatory complication, without long-term current use of insulin (HCC); Gastroesophageal reflux disease without esophagitis; Class 1 obesity with serious comorbidity and body mass index (BMI) of 34.0 to 34.9 in adult, unspecified obesity type 08/23/2025 Travel 08/20/2025 Telephone [facility] [address] [place] [address] Laurel Valdes MD Chart prep 08/02/2025 Refill [facility] [address] [place] [address] Makeda Allen, JEN Cannabis dependence, continuous (CMS/HCC) (HCC) 08/02/2025 Refill [facility] [address] [place] [address] Laurel Valdes MD 08/02/2025 Refill [facility] [address] [place] [address] Laurel Valdes MD from Last 3 Months Immunizations Immunization Administration [...] 20 10/14/2025 1:48 PM EST Oxygen Saturation 98% 04/27/2025 9:32 AM EDT Inhaled Oxygen Concentration - - Weight 89.4 kg (197 lb) 10/14/2025 1:48 PM EST Height 157.5 cm (5' 2 ) 10/14/2025 1:48 PM EST Body Mass Index 36.03 10/14/2025 1:48 PM EST Plan of Treatment Health Maintenance Due Date Last Done Comments HIV Screening 1981 Eye Exam 1991 Family Planning (PISQ) 1996 HPV Vaccines (1 - 3-dose series) 1996 Hepatitis C Screening 1999 Hepatitis A Vaccines (1 of 2 - Risk 2-dose series) 2000 Hepatitis B Vaccines (1 of 3 - 19+ 3-dose series) 2000 03/08/2004, 12/27/2003, 11/26/2003 Pneumococcal Vaccine: Pediatrics (0 to 5 Years) and At-Risk Patients (6 to 49) Years (1 of 2 - PCV) 2000 COVID-19 Vaccine ( - season) 2025 04/17/2021, 03/24/2021 Influenza Vaccine (#1) 2025 10/05/2015, 2008 Mammogram 09/07/2025 09/07/2024, 08/28, 05/05/2021 Depression Monitoring 11/06/2025 05/06/2025, 025 Disability Screening 12/29/2025 12/29/2024 Diabetes: Hemoglobin A1C 02/24/2026 025, 11/12/2024, 08/04/2024, Additional history exists Tobacco Screening 04/27/2026 04/27/2025 Cervical Cancer Screening 06/23/2026 HPV/Cotest 06/23/2026 06/23/2021 Pap Smear 06/23/2026 06/23/2021 Lipid Panel 08/26/2026 08/26/2025, 01/27, 08/04/2024, Additional history exists Alcohol/Substance Use Screening 10/14/2026 10/14/2025 Diabetes: Foot Exam 10/14/2026 10/14/2025, 10/14/2025, 10/14/2025, Additional history exists Diabetes: Urine Protein Screening 10/14/2026 10/14/2025, 02/22/2025, 02/22/2025, Additional history exists SDOH Screening 10/14/2026 10/14/2025 Zoster Vaccines (1 of 2) 2031 DTaP/Tdap/Td [...] on patient's age to complete this topic Goals Goal Patient Goal Type Associated Problems [...] chronic kidney disease No Eleno Craft MD Procedures Procedure Name Priority Date/Time Associated Diagnosis Comments ALBUMIN, RANDOM URINE W/CREATININE Routine 10/14/2025 2:22 PM EST Type 2 diabetes mellitus with other circulatory complication, without long-term current use of insulin (HCC) HEMOGLOBIN A1C Routine 08/26/2025 8:52 AM EDT Type 2 diabetes mellitus with other circulatory complication, without long-term current use of insulin (HCC) HEPATIC FUNCTION PANEL Routine 08/26/2025 8:52 AM EDT Type 2 diabetes mellitus with other circulatory complication, without long-term current use of insulin (HCC) Primary hypertension LIPID PANEL, STANDARD Routine 08/26/2025 8:52 AM EDT Type 2 diabetes mellitus with other circulatory complication, without long-term current use of insulin (HCC) Primary hypertension BASIC METABOLIC PANEL Routine 08/26/2025 8:52 AM EDT Type 2 diabetes mellitus with other circulatory complication, without long-term current use of insulin (HCC) Primary hypertension BI MAMMOGRAM SCREENING TOMOSYNTHESIS BILATERAL Routine 09/07/2024 3:48 PM EST HM PAP/HPV Routine 06/23/2021 from Last 3 Months or Most Recently Relevant to Health Maintenance Results * Albumin, Random Urine W/Creatinine (10/14/2025 2:22 PM EST) Creatinine, Urine 292.71 mg/dL [facility] Microalbumin Urine 46.0 mg/L H [facility] Microalbum Creatinine Ratio Ur 15.7 <30 ug/mg cr [facility] Comment:Albumin/Creatinine R atio Reference Ranges: Normal: < 30 ug/mg creatinine Microalbuminuria: 30 - 300 ug/mg creatinineClinical Albuminuria: > 300 ug/mg creatinine Urine (Urine, Random) 10/14/2025 2:22 PM EST 10/14/2025 3:00 PM EST us Eleno Darling MD LAB URINE ORDERABL ES Final Result Performing Organization Address [facility] de Phone Number [facility] [address] [place] [phone] * Hemoglobin A1c (08/26/2025 8:52 AM EDT) Hemoglobin A1c 5.3 <6.0 % [facility] Comment:Hemoglobin A1C Refer ence Range Adults: 4.8 - 6.0 % Non diabetic: < 6.0 % Goal: < 7.0 %Additional Action Suggested: > 8.0 %Note: Hemoglobin A1c results are invalid for patients with abnormal amounts of HbF. Blood transfusions may impact the HbA1c concentration in the patient sample. Estimated Average Glucose 105 mg/dL [facility] Comment:eAG = Estimated ave rage glucose which is %A1C expressed asaverage glucose, using the formula of the K5Y-NojnfczEysymoe Glucose study (ADAG), Diabetes Care, Vol.31,#8,May. 2007 Blood Venous blood specimen / Unknown 08/26/2025 8:52 AM EDT 08/26/2025 2:16 PM EDT us Laurel Valdes MD LAB BLOOD ORDERABLES Final Resul t Performing Organization Address [facility] Co de Phone Number [facility] [address] [place] [phone] * Hepatic Function Panel (08/26/2025 8:52 AM EDT) Bilirubin, Total 0.5 0.0 - 1.0 mg/dL [facility] Bilirubin, Direct 0.2 0.0 - 0.5 mg/dL [facility] Aspartate Amino Transferase 28 5 - 31 U/L [facility] Alanine Aminotransferase 20 0 - 31 U/L [facility] Total Protein 7.7 6.5 - 8.0 g/dL [facility] Albumin Level 4.7 3.5 - 5.0 g/dL [facility] Alkaline Phosphatase 115 39 - 117 U/L [facility] Blood Venous blood specimen / Unknown 08/26/2025 8:52 AM EDT 08/26/2025 2:23 PM EDT us Laurel Valdes MD LAB BLOOD ORDERABLES Final Resul t [facility] [address] [place] [phone] * Lipid Panel, Standard (08/26/2025 8:52 AM EDT) Triglycerides 118 <150 mg/dL [facility] Comment:Slight Lipemia.Justina able Triglyceride: less than 150 mg/dLBorderline High Triglyceride 150-199 mg/dLHigh Triglyceride: 200-499 mg/dLVery High Triglyceride: greater than or equal to 5OO mg/dL Cholesterol 169 <200 mg/dL [facility] Comment:Desirable Cholestero l: less than 200 mg/dLBorderline High Cholesterol: 200-239 mg/dLHigh Cholesterol: greater than 239 mg/dL LDL Cholesterol Calculated 94 <100 mg/dL [facility] Comment:Desirable LDL: less than 100 mg/dLNear Optimal/Above Optimal LDL: 110- 129 mg/dLBorderline High LDL: 130-159 mg/dLHigh LDL: 160-189 mg/dLVery High LDL: greater than or equal to 190 mg/dL HDL Cholesterol 52 >40 mg/dL [facility] Comment:Desirable HDL: great er than 40 mg/dL Note: This HDL assay may give artificially low results in patients with liver disease. Blood Venous blood specimen / Unknown 08/26/2025 8:52 AM EDT 08/26/2025 2:23 PM EDT Laurel Valdes MD LAB BLOOD ORDERABLES Final Resul t Performing Organization Address [facility] de Phone Number [facility] [address] [place] [phone] * (ABNORMAL) Basic Metabolic Panel (08/26/2025 8:52 AM EDT) Sodium 141 135 - 145 mmol/L [facility] Potassium 3.3 3.3 - 5.1 mmol/L [facility] Chloride 104 96 - 108 mmol/L [facility] Carbon Dioxide 26 22 - 29 mmol/L [facility] Anion Gap 14 12 - 20 [facility] Urea Nitrogen (BUN) 21(H) 9 - 16 mg/dL [facility] Creatinine, Serum 1.08 0.5 - 1.4 mg/dL [facility] Estimated Glomerular Filt Rate 55 [facility] Comment:Chronic Kidney Disea se: Estimated GFR < 60 mL/min/1.49d6Sytpap Kidney Disease: Estimated GFR < 15 mL/min/1.73m2 Glucose 104 60 - 115 mg/dL [facility] Calcium 9.8 8.4 - 10.2 mg/dL [facility] Blood Venous blood specimen / Unknown 08/26/2025 8:52 AM EDT 08/26/2025 2:23 PM EDT Laurel Valdes MD LAB BLOOD ORDERABLES Final Resul t Performing Organization Address [facility] Co de Phone Number [facility] [address] [place] [phone] * BI Mammogram Screening Tomosynthesis Bilateral (09/07/2024 3:48 PM EST) Anatomical Region Laterality Modality Breast Bilateral Mammography 09/07/2024 3:48 PM EST Narrative 09/16/2024 12:11 PM EST [address] [place] [address] Mammography Report Signed Patient: Hawa Gagnon MR#: [id number] 57 : 1980 Acct:[id number] Age/Sex: 43 / F ADM Date: 09/07/24 Loc: HO.MAMMO Attending Dr: Laurel Valdes MD Ordering Physician: Laurel Valdes MD Results: 1Negati ve Date of Service: 09/07/24 Follow Up: 1 Year From Orig inal Mammogram Procedure(s): MM tomosynthesis screening BI Accession Number(s): [id number] cc: Laurel Valdes MD EXAMINATION: MM SCREENING [...] Elsi Fay DO 09/16/2024 12:07 PM EST Dictated By: Elsi Fay DO Signed By: <Electronically signed by Elsi Fay DO in OV> 09/16/24 1207 DD/ 1548 TD/TT: 09/07/24 1616 Pipe Smoking Machine Offbearer: Procedure Note Donotuseinterpreter, Image - 09/16/[address] [place] [address] Mammography Report Signed Patient: Estuardo Gagnon#: [id number] 57 : 1980Acct:[id number] Age/Sex: 43 / FADM Date: 09/07/24 Loc: HO.MAMMO Attending Dr: Laurel Valdes MD Ordering Physician: Laurel Valdes MDResults: 1Negati ve Date of Service: 09/07/24Follow Up: 1 Year From Orig ina Mammogram Procedure(s): MM tomosynthesis screening BI Accession Number(s): [id number] cc: Laurel Valdes MD EXAMINATION: MM SCREENING [...] by: Elsi Fay DO 09/16/2024 12:07 PM [facility] Dictated By: Elsi Fay DO Signed By: <Electronically signed by Elsi Fay DO in OV> 09/16/24 1207 DD/ 1548 TD/TT: 09/07/24 1616 Pipe Smoking Machine Offbearer: Laurel Valdes MD IMG BI PROCEDURES Final Result * HM PAP/HPV (06/23/2021) Pap Smear 1. NILM 1. NILM HPV Not Detected Undetected, Indeterminat e, Quantitative , Not Detected Historical Provider HEALTH MAINTENANCE Final Result from Last 3 Months or Most Recently Relevant to Health Maintenance Additional Health Concerns Active Problems Noted Date Diagnosed Date Help patients manage their type 2 diabetes 10/14 Weekly blood pressure task 10/14/2025 Help patients manage their type 2 diabetes 10/14 Patient has chronic kidney disease 10/14/2025 Weekly blood pressure task 10/14/2025 Patient has chronic kidney disease 10/14/2025 Insurance [employer] C3 Care Teams Dog Catcher Relationship Specialty Start Date End Date Eleno Craft MD [address] [place] [address] ALBERT Chan PCP - General Internal Medicine 08/25/25
--- OUTSIDE RECORDS SUMMARY | 2025-10-14 18:34 | XMS_ITS | Encounter Summary ---
Author Organization [employer] Address [address] [facility] 7 [place] [address] Care Team Providers Care Machine Assembler Name Role Phone Laurel Valdes MD Primary Care Provider [phone] Eleno Craft MD Primary Care Prov ider Reason for Visit * Reason Onset Date Comments Appointment Request 12/15/2024 Encounter Details Date Type Department Care Team ([facility] st Contact Info) Description 12/15/2024 Telephone [facility] [address] [place] [address] Laurel Valdes MD [address] [place], [place] [phone] Appointment Request Social History Tobacco Use Types [...] feeling well and will like to r/s [phone] documented in this encounter Plan of Treatment Not on file documented as of this encounter Visit Diagnoses Not on filedocumented in this encounter Additional Health Concerns Assessment Noted Time PHQ-9 Depression Total Score: 24 023 9:56 AM EST documented as of this encounter Care Teams Machine Assembler Relationship Specialty Start Date End Date Laurel Valdes MD [address] [place] [phone] PCP - General Family Medicine 11/26/13 08/24/25 Eleno Craft MD [address] [place] [phone] PCP - General Internal Medicine 08/25/25 documented as of this encounter
[2025-10-15 08:11] LABS: HIV Num 1 0.07 S/CO (0.00-0.99); ~HepC Num1 0.15 S/CO (0.00-0.79); ~Hepatitis C Antibody Nonreactive (Nonreactive)
== END 2025-10-14 14:22 | disposition home or self-care (01) ==
LOC: HO.CHCLDS 14:21
PROVIDERS: Visit Provider Internal Medicine
DX: E11.59 Type 2 diabetes mellitus with other circulatory complications (principal); Z11.4 Encounter for screening for human immunodeficiency virus [HIV]; Z11.59 Encounter for screening for other viral diseases
CPT/HCPCS: 36415; 82043; 82570; 86803; 87389